=== PATIENT | female | born 1935 | race Caucasian/White ===

== ENCOUNTER 2017-04-20 17:52 | Inpatient (IN) | payer MEDICARE ==
[~2017-04-20] VITALS: Ht 157.5 cm; Wt 80.4 kg
[~2017-04-20 17:52] MED LIST: CALC500T42 PO; CHOL50006 PO; CIPR500T4 PO; CLAR10TA7 PO; COZA50TA PO; LEVO.05 PO; MULTCAP3 PO; PRAV40 PO; TOPR50TA PO; WARF1TAB PO; WARF3TAB PO
[2017-04-20 17:55] VITALS: BP 218/93; PULSE 59; RESP 16; TEMP 98.4; O2SAT 98
--- NOTE | 2017-04-20 18:51 | RADRPT ---
EXAM DATE/TIME: 04/20/2017 18:24 [place] COMPARISON: No previous studies available for comparison. INDICATIONS : Altered mental status. RADIATION DOSE: 56.35 CTDIvol (mGy) MEDICAL HISTORY : Cardiovascular disease. Cerebrovascular disease. Hypertension.cervical cancer SURGICAL HISTORY : Appendectomy. ENCOUNTER: Initial ACUITY: 1 day PAIN SCALE: 4/10 LOCATION: cranial TECHNIQUE: Multiple contiguous axial images were obtained of the head. Using automated exposure control and adj ustment of the mA and/or kV according to patient size, radiation dose was kept as low as reasonably a chievable to obtain optimal diagnostic quality images. DICOM format image data is available electro nically for review and comparison. FINDINGS: There is marked central and cortical atrophy with dilatation of ventricular and sulcal spaces. There is no parenchymal hemorrhage, acute infarction or mass lesion identified. There are old or infarct within the left ellen and the right centrum semiovale region. There are no extra-axial fluid collectio ns appreciated. The posterior fossa is unremarkable with midline fourth ventricle. The portion of t he orbits and paranasal sinuses visualized are unremarkable. CONCLUSION: Stable examination. Old lacunar infarcts. No evidence of hemorrhage or edema. Thaddeus Degroot MD on April 20, 2017 at 18:47 Board Certified Radiologist. This report was verified electronically.
--- NOTE | 2017-04-20 20:06 | PD ---
Physical Exam Narrative General: The patient is a well-developed well-nourished female in no acute distress. Head and Neck exam: Head is normocephalic atraumatic. Eyes: EOMI, pupils are equal round and reactive to light. Nose: Midline septum with pink mucous membranes Mouth: Dentition unremarkable. Moist mucus membranes. Posterior oropharynx is not erythematous. No tonsillar hypertrophy. Uvula midline. Airway patent. Neck: No palpable lymphadenopathy. No nuchal rigidity. No thyromegaly. Cardiovascular: Regular rate and rhythm without murmurs, gallops, or rubs. No pulse deficit to the extremities on simultaneous auscultation and palpation of her radial artery. Lungs: Clear to auscultation bilaterally. No wheezes, rhonchi, or rales. Abdomen: Soft, with reported midepigastric abdominal tenderness on deep palpation. No other tenderness on palpation of the other quadrants of the abdomen. No pulsatile mass palpated. Normal bowel sounds are audible. No tenderness on palpation of McBurney's point. No guarding, rebound, or rigidity. Extremities: No clubbing, cyanosis, or edema. 2+ pulses in all 4 extremities. No calf tenderness on palpation. Back: No costovertebral angle tenderness to palpation. Neurologic Exam: Cranial nerves 2-12 were intact on exam. Strength is 5/5 in all 4 extremities. No sensory deficits noted. Skin Exam: No rash noted. Intact skin that is warm and dry. Data Data Last Documented VS Vital Signs Date Time Temp Pulse Resp B/P (MAP) Pulse Ox O2 Delivery O2 Flow Rate FiO2 04/20/17 22:18 64 18 234/97 (142) 97 Room Air 04/20/17 17:55 98.4 Orders Orders Electrocardiogram (04/20/17 18:02) Complete Blood Count With Diff (04/20/17 18:02) Comprehensive Metabolic Panel (04/20/17 18:02) Creatine Kinase (Cpk) (04/20/17 18:02) Prothrombin Time / Inr (Pt) (04/20/17 18:02) Act Partial Throm Time (Ptt) (04/20/17 18:02) Ct Brain W/O Iv Contrast(Rout) (04/20/17 18:02) Urinalysis - C+S If Indicated (04/20/17 18:02) Troponin I (04/20/17 20:05) Influenzae A/B Antigen (04/20/17 20:16) Chest, Single Ap (04/20/17 20:30) Losartan (Cozaar) (04/20/17 21:30) Metoprolol Succinate Er (Toprol Xl) (04/20/17 21:30) Labetalol Inj (Trandate Inj) (04/20/17 22:47) Admit To Inpatient (04/20/17 ) Inpatient Certification (04/20/17 ) Vital Signs (Adult) ANDERS.Q4H (04/20/17 22:53) Consult Pt Eval & Treat (04/20/17 22:53) Diet Heart Healthy (04/21/17 Breakfast) Activity Oob With Assistance (04/20/17 22:53) Apixaban (Eliquis) (04/21/17 09:00) Levothyroxine (Synthroid) (04/21/17 06:00) Losartan (Cozaar) (04/21/17 09:00) Metoprolol Tartrate (Lopressor) (04/21/17 09:00) Pravastatin (Pravachol) (04/21/17 09:00) Galantamine (Razadyne) (04/21/17 09:00) Labs Laboratory Tests Test 04/20/17 19:51 04/20/17 20:06 White Blood Count 6.2 TH/MM3 Red Blood Count 3.73 MIL/MM3 Hemoglobin 12.4 GM/DL Hematocrit 36.3 % Mean Corpuscular Volume 97.3 FL Mean Corpuscular Hemoglobin 33.2 PG Mean Corpuscular Hemoglobin Concent 34.1 % Red Cell Distribution Width 13.2 % Platelet Count 188 TH/MM3 Mean Platelet Volume 8.2 FL Neutrophils (%) (Auto) 51.0 % Lymphocytes (%) (Auto) 33.1 % Monocytes (%) (Auto) 9.4 % Eosinophils (%) (Auto) 5.7 % Basophils (%) (Auto) 0.8 % Neutrophils # (Auto) 3.2 TH/MM3 Lymphocytes # (Auto) 2.1 TH/MM3 Monocytes # (Auto) 0.6 TH/MM3 Eosinophils # (Auto) 0.4 TH/MM3 Basophils # (Auto) 0.0 TH/MM3 CBC Comment DIFF FINAL Differential Comment Prothrombin Time 10.8 SEC Prothromb Time International Ratio 1.1 RATIO Activated Partial Thromboplast Time 26.5 SEC Blood Urea Nitrogen 19 MG/DL Creatinine 0.90 MG/DL Random Glucose 87 MG/DL Total Protein 7.4 GM/DL Albumin 3.6 GM/DL Calcium Level 9.1 MG/DL Alkaline Phosphatase 79 U/L Aspartate Amino Transf (AST/SGOT) 39 U/L Alanine Aminotransferase (ALT/SGPT) 30 U/L Total Bilirubin 0.4 MG/DL Sodium Level 139 MEQ/L Potassium Level 4.3 MEQ/L Chloride Level 105 MEQ/L Carbon Dioxide Level 26.3 MEQ/L Anion Gap 8 MEQ/L Estimat Glomerular Filtration Rate 60 ML/MIN Total Creatine Kinase 95 U/L Troponin I LESS THAN 0.02 NG/ML Urine Color YELLOW Urine Turbidity CLEAR Urine pH 5.5 Urine Specific [place] 1.017 Urine Protein NEG mg/dL Urine Glucose (UA) NEG mg/dL Urine Ketones NEG mg/dL Urine Occult Blood NEG Urine Nitrite NEG Urine Bilirubin NEG Urine Urobilinogen LESS THAN 2.0 MG/DL Urine Leukocyte Esterase TRACE Urine RBC 2 /hpf Urine WBC 3 /hpf Urine Squamous Epithelial Cells <1 /hpf Urine Mucus FEW /lpf Microscopic Urinalysis Comment CULT NOT INDICATED MDM Medical Record Reviewed: Yes Supervised Visit with EDSON: Yes Interpretation(s) Last Impressions Chest X-Ray 04/20/172029 Signed Impressions: Service Date/Time: Thursday, April 20, 2017 20:38 - CONCLUSION: Normal examination. Thaddeus Degroot MD Head CT 04/20/17 180 Signed Impressions: Service Date/Time: Thursday, April 20, 2017 18:24 - CONCLUSION: Stable examination. Old lacunar infarcts. No evidence of hemorrhage or edema. Thaddeus Degroot MD Differential Diagnosis Altered mentation related to hypertensive emergency, versus intracranial hemorrhage, versus intracranial mass, versus progression of dementia, versus infectious process Narrative Course I, Dr. Linares, have reviewed the advance practice practitioner's documentation and am in agreement, met with the patient face to face, made the diagnosis, and the medical decision making was done by me. The patient was initially evaluated by Gilma. Please see their complete history and physical. *My assessment and Findings: The patient presents with a history of reportedly not sleeping well last night and throughout the day today experiencing altered mentation that waxes and wanes in severity. The patient seemed to be unsteady on her feet with walking. The patient's blood pressure was also higher than usual up to 210 systolic. The patient's family reports that she has been sleeping intermittently throughout the day. The patient's son reports that he is her primary caregiver and she is recently had some sinus congestion and a dry cough. He denies noticing her having any increased urinary frequency or odor to her urine. She has not been experiencing any diarrhea. She has not had any known fevers. She was complaining of some chest pain earlier today. She denies chest pain currently. She reports that the pain is in the center of her chest and is a spreading sensation that moves out work. She also reports having a heavy sensation in her head. She denies having any neck pain, numbness or tingling to her extremities or weakness to her extremities. She has not had any facial droop. The patient does have a history of atrial fibrillation and a prior history of CVA in 2011. She is chronically anticoagulated on Eliquis. During the course of the patients emergency department visit, the patients history, examination, and differential diagnosis were reviewed with the patient. The patient was placed on a cardiac rn with oximetry and frequent blood pressure monitoring. The patient had IV access obtained and blood work sent for analysis. ECG done on arrival shows a sinus bradycardia heart rate of 57, moderate voltage criteria for LVH, no acute ST segment elevation or depression. QRS duration is 105 ms, QTC 432 ms. The patient was initially provided her usual dose of nighttime blood pressure medicine, losartan and metoprolol by mouth. Unfortunately, the patient continued to be hypertensive and due to the concern of hypertensive encephalopathy with waxing and waning mentation, the patient was started on a Cardene drip. The patients laboratory studies were reviewed and remarkable for a white count of 6.2, hemoglobin 12.4, platelets 188 with 9.4 monocytes, CMP is remarkable for a BUN of 19, GFR 60, AST 39, cardiac enzymes within normal limits , PT PTT within normal limits. Urinalysis unremarkable Radiology studies were reviewed and remarkable for a CT scan of the brain that shows no acute abnormality. CT scan of the brain showed no acute abnormality. The patients results were discussed with the patient, including the plan of care. I explained that further testing and/ or monitoring is indicated based on the patients history, examination, and/ or laboratory findings. Therefore, I recommended admission for additional evaluation. The patient expressed understanding and was agreeable with this plan. The patient was admitted to the hospital in guarded condition and [facility] Diagnosis Primary Impression: Hypertensive urgency Additional Impression: Altered mental status Qualified Codes: R41.0 - Disorientation, unspecified Admitting Information Admitting Physician Requests: Admit Radha Linares MD Apr 20, 2017 20:06
[2017-04-20] MEDS ORDERED: LOSA50TA PO (20:15)
[2017-04-20] MEDS ORDERED: APIX5TAB PO (20:15)
[2017-04-20] MEDS ORDERED: METO50TA PO (20:15)
[2017-04-20] MEDS ORDERED: MULT1TAB46 (20:15)
[2017-04-20] MEDS ORDERED: GALA8CAP PO (20:15)
[2017-04-20] MEDS ORDERED: PRAV40TA2 PO (20:15)
[2017-04-20] MEDS ORDERED: LEVO50TA4 PO (20:15)
--- NOTE | 2017-04-20 20:15 | PD ---
HPI Chief Complaint: Altered Mental Status Time Seen by Provider: 19:57 Travel History International Travel<30 days: No Contact w/Intl Traveler<30days: No Traveled to known affect area: No History of Present Illness HPI 81-year-old female presents to emergency department with her son with complaints of increased confusion. Son states that he is the live-in caregiver and knows this patient well. Patient says that she does have dementia but is usually very good with dates and people but has been unable to tell him these specific things without great difficulty. He says that she had a CVA in 2011 which resulted in her dementia. She also has a history of atrial fibrillation which is intermittent and states compliance with Coumadin use. Says she had an episode of chest tightness approximate 1 hour while in the car today. Says this episode is similar to previous episodes when she developed atrial fibrillation. Denies chest pain or shortness of breath at this time. Denies recent falls or head trauma. Denies dysuria or other urinary symptoms. Denies abdominal pain, shortness of breath. He is very concerned that she receive her 8:00 medications. PFSH Past Medical History Hx Anticoagulant Therapy: Yes Anemia: Yes Arthritis: Yes Asthma: Yes Blood Disorders: Yes (BLOOD TRANSFUSION X 2) Anxiety: Yes Depression: No Heart Rhythm Problems: No Cancer: Yes (CERVICAL) Cardiac Catheterization: No Cardiovascular Problems: Yes High Cholesterol: Yes Chemotherapy: No Congestive Heart Failure: No Cerebrovascular Accident: Yes Diabetes: No Diminished Hearing: No Endocrine: No Gastrointestinal Disorders: Yes GERD: Yes Genitourinary: No Hiatal Hernia: Yes Hypertension: Yes Immune Disorder: No Implanted Vascular Access Dvce: Yes Musculoskeletal: Yes Neurologic: Yes Psychiatric: Yes Reproductive: No Respiratory: Yes Immunizations Current: No Radiation Therapy: No Thyroid Disease: Yes (HYPOTHYROID) Ulcer: Yes (GASTRIC) Tetanus Vaccination: < 5 Years Menopausal: Yes Dilation and Curettage (D&C): Yes Past Surgical History Abdominal Surgery: Yes (EXPL. LAP) AICD: No Appendectomy: Yes Arteriovenous Shunt: No Coronary Artery Bypass Graft: No Eye Surgery: Yes Genitourinary Surgery: Yes Gynecologic Surgery: Yes (D&C) Hysterectomy: No Insulin Pump: No Joint Replacement: Yes (NANCY HIP) Oral Surgery: Yes (T & A) Pacemaker: No Tonsillectomy: Yes Other Surgery: Yes Family History Family Myocardial Infarction: No Social History Alcohol Use: No Tobacco Use: No Substance Use: No Allergies-Medications (Allergen,Severity, Reaction): Coded Allergies: baclofen (Unverified Allergy, Severe, DYSPNEA, CHOKING, 11/25/16) carisoprodol (Unverified Allergy, Severe, DYSPNEA, CHOKING, 11/25/16) celecoxib (Unverified Allergy, Severe, Dyspepsia, 11/25/16) chlorzoxazone (Unverified Allergy, Severe, DYSPNEA, CHOKING, 11/25/16) clarithromycin (Unverified Allergy, Severe, SOB, 11/25/16) codeine (Unverified Allergy, Severe, ANAPHYLAXIS, 11/25/16) cyclobenzaprine (Unverified Allergy, Severe, DYSPNEA, CHOKING, 11/25/16) gemfibrozil (Unverified Allergy, Severe, CAUSES PALPITATIONS, 11/25/16) metaxalone (Unverified Allergy, Severe, DYSPNEA, CHOKING, 11/25/16) methocarbamol (Unverified Allergy, Severe, DYSPNEA, CHOKING, 11/25/16) tizanidine (Unverified Allergy, Severe, DYSPNEA, CHOKING, 11/25/16) amlodipine (Unverified Adverse Reaction, Severe, LIPITOR ZOCOR MEVACOR- MYALGIAS AND DIZZINESS, 11/25/16) atorvastatin (Unverified Adverse Reaction, Severe, LIPITOR ZOCOR MEVACOR- MYALGIAS AND DIZZINESS, 11/25/16) diclofenac (Unverified Adverse Reaction, Severe, CEKEBREX VIOXX - DYSPEPSIA, 11/25/16) etodolac (Unverified Adverse Reaction, Severe, CEKEBREX VIOXX - DYSPEPSIA , 11/25/16) flurbiprofen (Unverified Adverse Reaction, Severe, CEKEBREX VIOXX - DYSPEPSIA, 11/25/16) furosemide (Unverified Adverse Reaction, Severe, GENERIC LASIX - MUSCLE CRAMPS, 11/25/16) gabapentin (Unverified Adverse Reaction, Severe, MUSCLE CRAMPS, 11/25/16) ibuprofen (Unverified Adverse Reaction, Severe, CEKEBREX VIOXX - DYSPEPSIA , 11/25/16) indomethacin (Unverified Adverse Reaction, Severe, CEKEBREX VIOXX - DYSPEPSIA, 11/25/16) ketoprofen (Unverified Adverse Reaction, Severe, CEKEBREX VIOXX - DYSPEPSIA, 11/25/16) ketorolac (Unverified Adverse Reaction, Severe, CEKEBREX VIOXX - DYSPEPSIA , 11/25/16) lansoprazole (Unverified Adverse Reaction, Severe, Diarrhea, 11/25/16) lovastatin (Unverified Adverse Reaction, Severe, MYALGIAS AND DIZZINESS, ) naproxen (Unverified Adverse Reaction, Severe, CEKEBREX VIOXX - DYSPEPSIA , 11/25/16) omeprazole (Unverified Adverse Reaction, Severe, DIARRHEA, 11/25/16) oxaprozin (Unverified Adverse Reaction, Severe, CEKEBREX VIOXX - DYSPEPSIA , 11/25/16) pravastatin (Unverified Adverse Reaction, Severe, LIPITOR ZOCOR MEVACOR- MYALGIAS AND DIZZINESS, 11/25/16) rofecoxib (Unverified Adverse Reaction, Severe, MUSCLE CRAMPING, 11/25/16) simvastatin (Unverified Adverse Reaction, Severe, MYLAGIAS AND DIZZINESS, 11/25/16) sodium phosphate (Unverified Adverse Reaction, Severe, N/V, 11/25/16) Uncoded Allergies: ALLERGY SHOTS (Allergy, Severe, ASTHMA, 05/22/13) CHOLESTEROL MEDICATIONS (Adverse Reaction, Severe, MUSCLE CRAMPS, 05/22/13) OSTEOPOROSIS MEDICATIONS (Adverse Reaction, Severe, JAW EROSION, 05/22/13) Reported Meds & Prescriptions Reported Meds & Active Scripts Active Reported Losartan (Losartan Potassium) 50 Mg Tab 50 Mg PO BID Pravastatin 40 Mg Tab 40 Mg PO DAILY Eliquis (Apixaban) 5 Mg Tab 5 Mg PO BID Galantamine ER (Galantamine Hydrobromide) 8 Mg Caper 8 Mg PO DAILY Levothyroxine (Levothyroxine Sodium) 50 Mcg Tab 50 Mcg PO DAILY Metoprolol Tartrate 50 Mg Tab 50 Mg PO BID Multi Vitamin Daily (Multiple Vitamin) 1 Tab Tab Review of Systems Except as stated in HPI: all other systems reviewed are Neg Physical Exam Narrative GENERAL: Well-developed well-nourished in no apparent distress, interacting well with me SKIN: Focused skin assessment warm/dry. HEAD: Atraumatic. Normocephalic. EYES: Pupils equal and round. No scleral icterus. No injection or drainage. EOMI ENT: No nasal bleeding or discharge. Mucous membranes pink and moist. NECK: Trachea midline. No JVD. CARDIOVASCULAR: Regular rate and rhythm. No murmur appreciated. RESPIRATORY: No accessory muscle use. Clear to auscultation. Breath sounds equal bilaterally. GASTROINTESTINAL: Abdomen soft, non-tender, nondistended. MUSCULOSKELETAL: No obvious deformities. No clubbing. No cyanosis. No edema. Left CVA tenderness NEUROLOGICAL: Awake and alert. No obvious cranial nerve deficits. Motor grossly within normal limits. Normal speech. PSYCHIATRIC: Appropriate mood and affect; insight and judgment normal. Data Data Last Documented VS Vital Signs Date Time Temp Pulse Resp B/P (MAP) Pulse Ox O2 Delivery O2 Flow Rate FiO2 04/20/17 22:18 64 18 234/97 (142) 97 Room Air 04/20/17 17:55 98.4 Orders Orders Electrocardiogram (04/20/17 18:02) Complete Blood Count With Diff (04/20/17 18:02) Comprehensive Metabolic Panel (04/20/17 18:02) Creatine Kinase (Cpk) (04/20/17 18:02) Prothrombin Time / Inr (Pt) (04/20/17 18:02) Act Partial Throm Time (Ptt) (04/20/17 18:02) Ct Brain W/O Iv Contrast(Rout) (04/20/17 18:02) Urinalysis - C+S If Indicated (04/20/17 18:02) Troponin I (04/20/17 20:05) Influenzae A/B Antigen (04/20/17 20:16) Chest, Single Ap (04/20/17 20:30) Losartan (Cozaar) (04/20/17 21:30) Metoprolol Succinate Er (Toprol Xl) (04/20/17 21:30) Labetalol Inj (Trandate Inj) (04/20/17 22:47) Admit To Inpatient (04/20/17 ) Inpatient Certification (04/20/17 ) Vital Signs (Adult) ANDERS.Q4H (04/20/17 22:53) Consult Pt Eval & Treat (04/20/17 22:53) Diet Heart Healthy (04/21/17 Breakfast) Activity Oob With Assistance (04/20/17 22:53) Apixaban (Eliquis) (04/21/17 09:00) Levothyroxine (Synthroid) (04/21/17 06:00) Losartan (Cozaar) (04/21/17 09:00) Metoprolol Tartrate (Lopressor) (04/21/17 09:00) Pravastatin (Pravachol) (04/21/17 09:00) Galantamine (Razadyne) (04/21/17 09:00) Labs Laboratory Tests Test 04/20/17 19:51 04/20/17 20:06 White Blood Count 6.2 TH/MM3 Red Blood Count 3.73 MIL/MM3 Hemoglobin 12.4 GM/DL Hematocrit 36.3 % Mean Corpuscular Volume 97.3 FL Mean Corpuscular Hemoglobin 33.2 PG Mean Corpuscular Hemoglobin Concent 34.1 % Red Cell Distribution Width 13.2 % Platelet Count 188 TH/MM3 Mean Platelet Volume 8.2 FL Neutrophils (%) (Auto) 51.0 % Lymphocytes (%) (Auto) 33.1 % Monocytes (%) (Auto) 9.4 % Eosinophils (%) (Auto) 5.7 % Basophils (%) (Auto) 0.8 % Neutrophils # (Auto) 3.2 TH/MM3 Lymphocytes # (Auto) 2.1 TH/MM3 Monocytes # (Auto) 0.6 TH/MM3 Eosinophils # (Auto) 0.4 TH/MM3 Basophils # (Auto) 0.0 TH/MM3 CBC Comment DIFF FINAL Differential Comment Prothrombin Time 10.8 SEC Prothromb Time International Ratio 1.1 RATIO Activated Partial Thromboplast Time 26.5 SEC Blood Urea Nitrogen 19 MG/DL Creatinine 0.90 MG/DL Random Glucose 87 MG/DL Total Protein 7.4 GM/DL Albumin 3.6 GM/DL Calcium Level 9.1 MG/DL Alkaline Phosphatase 79 U/L Aspartate Amino Transf (AST/SGOT) 39 U/L Alanine Aminotransferase (ALT/SGPT) 30 U/L Total Bilirubin 0.4 MG/DL Sodium Level 139 MEQ/L Potassium Level 4.3 MEQ/L Chloride Level 105 MEQ/L Carbon Dioxide Level 26.3 MEQ/L Anion Gap 8 MEQ/L Estimat Glomerular Filtration Rate 60 ML/MIN Total Creatine Kinase 95 U/L Troponin I LESS THAN 0.02 NG/ML Urine Color YELLOW Urine Turbidity CLEAR Urine pH 5.5 Urine Specific [place] 1.017 Urine Protein NEG mg/dL Urine Glucose (UA) NEG mg/dL Urine Ketones NEG mg/dL Urine Occult Blood NEG Urine Nitrite NEG Urine Bilirubin NEG Urine Urobilinogen LESS THAN 2.0 MG/DL Urine Leukocyte Esterase TRACE Urine RBC 2 /hpf Urine WBC 3 /hpf Urine Squamous Epithelial Cells <1 /hpf Urine Mucus FEW /lpf Microscopic Urinalysis Comment CULT NOT INDICATED MDM Medical Decision Making Medical Screen Exam Complete: Yes Emergency Medical Condition: Yes Differential Diagnosis Delirium, dementia, urinary tract infection, sepsis, neutrophil fibrillation, CVA, hypertensive urgency, hypertensive emergency Narrative Course 81-year-old female presents to emergency department with her son with complaints of increased confusion. Son states that he is the live-in caregiver and knows this patient well. Patient says that she does have dementia but is usually very good with dates and people but has been unable to tell him these specific things without great difficulty. He says that she had a CVA in 2011 which resulted in her dementia. She also has a history of atrial fibrillation which is intermittent and states compliance with Coumadin use. Says she had an episode of chest tightness approximate 1 hour while in the car today. Says this episode is similar to previous episodes when she developed atrial fibrillation. Denies chest pain or shortness of breath at this time. Denies recent falls or head trauma. Denies dysuria or other urinary symptoms. Denies abdominal pain, shortness of breath. He is very concerned that she receive her 8:00 medications. Vital signs- hypertensive Last Impressions Chest X-Ray 04/20/172029 Signed Impressions: Service Date/Time: Thursday, April 20, 2017 20:38 - CONCLUSION: Normal examination. Thaddeus Degroot MD Head CT 04/20/17 1802 Signed Impressions: Service Date/Time: Thursday, April 20, 2017 18:24 - CONCLUSION: Stable examination. Old lacunar infarcts. No evidence of hemorrhage or edema. Thaddeus Degroot MD Laboratory Tests Test 04/20/17 19:51 04/20/17 20:06 White Blood Count 6.2 TH/MM3 Red Blood Count 3.73 MIL/MM3 Hemoglobin 12.4 GM/DL Hematocrit 36.3 % Mean Corpuscular Volume 97.3 FL Mean Corpuscular Hemoglobin 33.2 PG Mean Corpuscular Hemoglobin Concent 34.1 % Red Cell Distribution Width 13.2 % Platelet Count 188 TH/MM3 Mean Platelet Volume 8.2 FL Neutrophils (%) (Auto) 51.0 % Lymphocytes (%) (Auto) 33.1 % Monocytes (%) (Auto) 9.4 % Eosinophils (%) (Auto) 5.7 % Basophils (%) (Auto) 0.8 % Neutrophils # (Auto) 3.2 TH/MM3 Lymphocytes # (Auto) 2.1 TH/MM3 Monocytes # (Auto) 0.6 TH/MM3 Eosinophils # (Auto) 0.4 TH/MM3 Basophils # (Auto) 0.0 TH/MM3 CBC Comment DIFF FINAL Differential Comment Prothrombin Time 10.8 SEC Prothromb Time International Ratio 1.1 RATIO Activated Partial Thromboplast Time 26.5 SEC Blood Urea Nitrogen 19 MG/DL Creatinine 0.90 MG/DL Random Glucose 87 MG/DL Total Protein 7.4 GM/DL Albumin 3.6 GM/DL Calcium Level 9.1 MG/DL Alkaline Phosphatase 79 U/L Aspartate Amino Transf (AST/SGOT) 39 U/L Alanine Aminotransferase (ALT/SGPT) 30 U/L Total Bilirubin 0.4 MG/DL Sodium Level 139 MEQ/L Potassium Level 4.3 MEQ/L Chloride Level 105 MEQ/L Carbon Dioxide Level 26.3 MEQ/L Anion Gap 8 MEQ/L Estimat Glomerular Filtration Rate 60 ML/MIN Total Creatine Kinase 95 U/L Troponin I LESS THAN 0.02 NG/ML Urine Color YELLOW Urine Turbidity CLEAR Urine pH 5.5 Urine Specific [place] 1.017 Urine Protein NEG mg/dL Urine Glucose (UA) NEG mg/dL Urine Ketones NEG mg/dL Urine Occult Blood NEG Urine Nitrite NEG Urine Bilirubin NEG Urine Urobilinogen LESS THAN 2.0 MG/DL Urine Leukocyte Esterase TRACE Urine RBC 2 /hpf Urine WBC 3 /hpf Urine Squamous Epithelial Cells <1 /hpf Urine Mucus FEW /lpf Microscopic Urinalysis Comment CULT NOT INDICATED Her home BP medications were administered in the ED. BP persistently elevated. Cardene administered in the emergency department. Because of son's concern for altered mental status and elevated BP, will admit for hypertensive urgency. Patient remained stable and pleasant throughout the emergency department visit. Diagnosis Primary Impression: Hypertensive urgency Admitting Information Admitting Physician Requests: Observation Condition: Stable Cait Spear Apr 20, 2017 20:15
[2017-04-20 20:30] LABS: AUTOMATED NEUTROPHIL # 3.2 TH/MM3 (1.8-7.7); BASOPHIL % 0.8 % (0.0-2.0); EOSINOPHIL # 0.4 TH/MM3 (0-0.4); EOSINOPHIL % 5.7 % (0.0-4.0); HEMATOCRIT 36.3 % (35.0-46.0); HEMOGLOBIN 12.4 GM/DL (11.6-15.3); LYMPH % 33.1 % (9.0-44.0); LYMPHOCYTE # 2.1 TH/MM3 (1.0-4.8); MEAN CELL VOLUME 97.3 FL (80.0-100.0); MEAN CORPUSCULAR HEMOGLOBIN 33.2 PG (27.0-34.0); MEAN CORPUSCULAR HGB CONC 34.1 % (32.0-36.0); MEAN PLATELET VOLUME 8.2 FL (7.0-11.0); MONO % 9.4 % (0.0-8.0); MONOCYTE # 0.6 TH/MM3 (0-0.9); PLATELET COUNT 188 TH/MM3 (150-450); RED BLOOD COUNT 3.73 MIL/MM3 (4.00-5.30); RED CELL DISTRIBUTION WIDTH 13.2 % (11.6-17.2); WHITE BLOOD COUNT 6.2 TH/MM3 (4.0-11.0)
[2017-04-20 20:32] LABS: BILIRUBIN, URINE NEG (NEG); BLOOD, URINE NEG (NEG); GLUCOSE,URINE NEG (NEG); KETONE, URINE NEG (NEG); MUCUS URINE FEW /lpf (OCC); NITRITE,URINE NEG (NEG); PH, URINE 5.5 (5.0-8.5); SQUAMOUS EPITHELIAL CELL URINE <1 /hpf (0-5); URINE COLOR YELLOW (YELLW/STRAW); URINE LEUKOCYTE ESTERASE TRACE (NEG)
[2017-04-20 20:40] LABS: INTERNATIONAL NORMALIZED RATIO 1.1 RATIO; PROTHROMBIN TIME - PATIENT 10.8 SEC (9.8-11.6)
[2017-04-20 20:52] LABS: ALT (GPT) 30 U/L (10-53)
[2017-04-20 20:54] LABS: ALBUMIN 3.6 GM/DL (3.4-5.0); AST (GOT) 39 U/L (15-37); BICARBONATE 26.3 MEQ/L (21.0-32.0); BLOOD UREA NITROGEN 19 MG/DL (7-18); CALCIUM 9.1 MG/DL (8.5-10.1); CHLORIDE 105 MEQ/L (98-107); GLOMERULAR FILTRATION RATE 60 ML/MIN (>89); GLUCOSE,RANDOM 87 MG/DL (74-106); SODIUM (NA) 139 MEQ/L (136-145)
[2017-04-20 20:55] LABS: ALKALINE PHOSPHATASE 79 U/L (45-117); TOTAL BILIRUBIN ADULT 0.4 MG/DL (0.2-1.0); TOTAL PROTEIN 7.4 GM/DL (6.4-8.2)
--- NOTE | 2017-04-20 21:01 | RADRPT ---
EXAM DATE/TIME: 04/20/2017 20:38 [facility] COMPARISON: CHEST SINGLE AP, February 12, 2015, 23:35. INDICATIONS : Cough. MEDICAL HISTORY : Hypertension. Asthma. SURGICAL HISTORY : None. ENCOUNTER: Initial ACUITY: 1 week PAIN SCORE: 0/10 LOCATION: Bilateral chest FINDINGS: A single view of the chest demonstrates the lungs to be symmetrically aerated without evidence of mas s, infiltrate or effusion. The cardiomediastinal contours are unremarkable. Osseous structures are intact. CONCLUSION: Normal examination. Thaddeus Degroot MD on April 20, 2017 at 20:59 Board Certified Radiologist. This report was verified electronically.
[2017-04-20] MEDS ORDERED: METOPROLOL SUCCINATE 50 MG EXTENDED RELEASE TAB PO ONE (21:30)
[2017-04-20] MEDS ORDERED: LOSARTAN 50 MG TAB PO ONE (21:30)
[2017-04-20 22:18] VITALS: BP 234/97; PULSE 64; RESP 18; O2SAT 97
[2017-04-20] MEDS ORDERED: LABETALOL HCL 100 MG/20 ML VIAL IV PUSH STA (22:47)
--- NOTE | 2017-04-20 23:07 | HHI.HP ---
HPI Service [facility] Hospitalists Primary Care Physician Louise Abdalla MD Admission Diagnosis hypertensive urgency Chief Complaint: ams Travel History International Travel<30 Days: No Contact w/Intl Traveler <30 Da: No Traveled to Known Affected Are: No History of Present Illness Pt with hx of pafib, lacunar and pontine cva's, vascular dementia, htn presents with elevated bp, left leg intermittent "dragging", and intermittent confusion all today. Son is caregiver and says her bp was hard to control. He noted left foot catching/dragging with ambulation and some intermittent confusion over baseline and slurred speech. BP elevated in ED and ED gave her home bp meds and called for admission. CT head and basic blood work negative for acute process. Possible mild cough today. Review of Systems Other confusion Past Family Social History Past Medical History left pontine cva tia p. afib htn hypothyroidism dementia gerd appe bilateral hip arthroplasties Reported Medications Losartan (Losartan Potassium) 50 Mg Tab 50 Mg PO BID Pravastatin 40 Mg Tab 40 Mg PO DAILY Eliquis (Apixaban) 5 Mg Tab 5 Mg PO BID Galantamine ER (Galantamine Hydrobromide) 8 Mg Caper 8 Mg PO DAILY Levothyroxine (Levothyroxine Sodium) 50 Mcg Tab 50 Mcg PO DAILY Metoprolol Tartrate 50 Mg Tab 50 Mg PO BID Multi Vitamin Daily (Multiple Vitamin) 1 Tab Tab Allergies: Coded Allergies: baclofen (Unverified Allergy, Severe, DYSPNEA, CHOKING, 11/25/16) carisoprodol (Unverified Allergy, Severe, DYSPNEA, CHOKING, 11/25/16) celecoxib (Unverified Allergy, Severe, Dyspepsia, 11/25/16) chlorzoxazone (Unverified Allergy, Severe, DYSPNEA, CHOKING, 11/25/16) clarithromycin (Unverified Allergy, Severe, SOB, 11/25/16) codeine (Unverified Allergy, Severe, ANAPHYLAXIS, 11/25/16) cyclobenzaprine (Unverified Allergy, Severe, DYSPNEA, CHOKING, 11/25/16) gemfibrozil (Unverified Allergy, Severe, CAUSES PALPITATIONS, 11/25/16) metaxalone (Unverified Allergy, Severe, DYSPNEA, CHOKING, 11/25/16) methocarbamol (Unverified Allergy, Severe, DYSPNEA, CHOKING, 11/25/16) tizanidine (Unverified Allergy, Severe, DYSPNEA, CHOKING, 11/25/16) amlodipine (Unverified Adverse Reaction, Severe, LIPITOR ZOCOR MEVACOR- MYALGIAS AND DIZZINESS, 11/25/16) atorvastatin (Unverified Adverse Reaction, Severe, LIPITOR ZOCOR MEVACOR- MYALGIAS AND DIZZINESS, 11/25/16) diclofenac (Unverified Adverse Reaction, Severe, CEKEBREX VIOXX - DYSPEPSIA, 11/25/16) etodolac (Unverified Adverse Reaction, Severe, CEKEBREX VIOXX - DYSPEPSIA , 11/25/16) flurbiprofen (Unverified Adverse Reaction, Severe, CEKEBREX VIOXX - DYSPEPSIA, 11/25/16) furosemide (Unverified Adverse Reaction, Severe, GENERIC LASIX - MUSCLE CRAMPS, 11/25/16) gabapentin (Unverified Adverse Reaction, Severe, MUSCLE CRAMPS, 11/25/16) ibuprofen (Unverified Adverse Reaction, Severe, CEKEBREX VIOXX - DYSPEPSIA , 11/25/16) indomethacin (Unverified Adverse Reaction, Severe, CEKEBREX VIOXX - DYSPEPSIA, 11/25/16) ketoprofen (Unverified Adverse Reaction, Severe, CEKEBREX VIOXX - DYSPEPSIA, 11/25/16) ketorolac (Unverified Adverse Reaction, Severe, CEKEBREX VIOXX - DYSPEPSIA , 11/25/16) lansoprazole (Unverified Adverse Reaction, Severe, Diarrhea, 11/25/16) lovastatin (Unverified Adverse Reaction, Severe, MYALGIAS AND DIZZINESS, ) naproxen (Unverified Adverse Reaction, Severe, CEKEBREX VIOXX - DYSPEPSIA , 11/25/16) omeprazole (Unverified Adverse Reaction, Severe, DIARRHEA, 11/25/16) oxaprozin (Unverified Adverse Reaction, Severe, CEKEBREX VIOXX - DYSPEPSIA , 11/25/16) pravastatin (Unverified Adverse Reaction, Severe, LIPITOR ZOCOR MEVACOR- MYALGIAS AND DIZZINESS, 11/25/16) rofecoxib (Unverified Adverse Reaction, Severe, MUSCLE CRAMPING, 11/25/16) simvastatin (Unverified Adverse Reaction, Severe, MYLAGIAS AND DIZZINESS, 11/25/16) sodium phosphate (Unverified Adverse Reaction, Severe, N/V, 11/25/16) Uncoded Allergies: ALLERGY SHOTS (Allergy, Severe, ASTHMA, 05/22/13) CHOLESTEROL MEDICATIONS (Adverse Reaction, Severe, MUSCLE CRAMPS, 05/22/13) OSTEOPOROSIS MEDICATIONS (Adverse Reaction, Severe, JAW EROSION, 05/22/13) Family History nc Social History no etoh/tob Physical Exam Vital Signs pleasant follows commands heart reg lung cta abd s/nt ext no edema no focal weakness Vital Signs Date Time Temp Pulse Resp B/P (MAP) Pulse Ox O2 Delivery O2 Flow Rate FiO2 04/20/17 22:18 64 18 234/97 (142) 97 Room Air 04/20/17 20:09 56 18 96 Room Air 04/20/17 17:55 98.4 59 16 218/93 (134) 98 Laboratory Laboratory Tests Test 04/20/17 19:51 04/20/17 20:06 White Blood Count 6.2 Red Blood Count 3.73 Hemoglobin 12.4 Hematocrit 36.3 Mean Corpuscular Volume 97.3 Mean Corpuscular Hemoglobin 33.2 Mean Corpuscular Hemoglobin Concent 34.1 Red Cell Distribution Width 13.2 Platelet Count 188 Mean Platelet Volume 8.2 Neutrophils (%) (Auto) 51.0 Lymphocytes (%) (Auto) 33.1 Monocytes (%) (Auto) 9.4 Eosinophils (%) (Auto) 5.7 Basophils (%) (Auto) 0.8 Neutrophils # (Auto) 3.2 Lymphocytes # (Auto) 2.1 Monocytes # (Auto) 0.6 Eosinophils # (Auto) 0.4 Basophils # (Auto) 0.0 CBC Comment DIFF FINAL Differential Comment Prothrombin Time 10.8 Prothromb Time International Ratio 1.1 Activated Partial Thromboplast Time 26.5 Blood Urea Nitrogen 19 Creatinine 0.90 Random Glucose 87 Total Protein 7.4 Albumin 3.6 Calcium Level 9.1 Alkaline Phosphatase 79 Aspartate Amino Transf (AST/SGOT) 39 Alanine Aminotransferase (ALT/SGPT) 30 Total Bilirubin 0.4 Sodium Level 139 Potassium Level 4.3 Chloride Level 105 Carbon Dioxide Level 26.3 Anion Gap 8 Estimat Glomerular Filtration Rate 60 Total Creatine Kinase 95 Troponin I LESS THAN 0.02 Urine Color YELLOW Urine Turbidity CLEAR Urine pH 5.5 Urine Specific [place] 1.017 Urine Protein NEG Urine Glucose (UA) NEG Urine Ketones NEG Urine Occult Blood NEG Urine Nitrite NEG Urine Bilirubin NEG Urine Urobilinogen LESS THAN 2.0 Urine Leukocyte Esterase TRACE Urine RBC 2 Urine WBC 3 Urine Squamous Epithelial Cells <1 Urine Mucus FEW Microscopic Urinalysis Comment CULT NOT INDICATED Date/Time Source Procedure Growth Status 04/20/17 19:52 Nasal Aspirate Influenza Types A,B Antigen (TONIO) - Final NEGATIVE FOR FLU A AND B ANTIGEN.... Complete Result Diagram: 04/20/17195004/20/171950 Caprini VTE Risk Assessment Caprini VTE Risk Assessment: Mod/High Risk (score >= 2) Caprini Risk Assessment Model Point Value = 1 Point Value = 2 Point Value = 3 Point Value = 5 Age 41-60 Minor surgery BMI > 25 kg/m2 Swollen legs Varicose veins or History of unexplained or recurrent spontaneous Oral contraceptives or hormone replacement Sepsis (< 1 month) Serious lung disease, including pneumonia (< 1 month) Abnormal pulmonary function Acute myocardial infarction Congestive heart failure (< 1 month) History of inflammatory bowel disease Medical patient at bed rest Age 61-74 Arthroscopic surgery Major open surgery (> 45 min) Laparoscopic surgery (> 45 min) Malignancy Confined to bed (> 72 hours) Immobilizing plaster cast Central venous access Age >= 75 History of VTE Family history of VTE Factor V Leiden Prothrombin [id number] Lupus anticoagulant Anticardiolipin antibodies Elevated serum homocysteine Heparin-induced thrombocytopenia Other congenital or acquired thrombophilia Stroke (< 1 month) Elective arthroplasty Hip, pelvis, or leg fracture Acute spinal cord injury (< 1 month) Prophylaxis Regimen Total Risk Factor Score Risk Level Prophylaxis Regimen 0-1 Low Early ambulation 2 Moderate Order ONE of the following: *Sequential Compression Device (SCD) *Heparin 5000 units SQ BID 3-4 Higher Order ONE of the following medications: *Heparin 5000 units SQ TID *Enoxaparin/Lovenox 40 mg SQ daily (WT < 150 kg, CrCl > 30 mL/min) *Enoxaparin/Lovenox 30 mg SQ daily (WT < 150 kg, CrCl > 10-29 mL/min) *Enoxaparin/Lovenox 30 mg SQ BID (WT < 150 kg, CrCl > 30 mL/min) AND/OR *Sequential Compression Device (SCD) 5 or more Highest Order ONE of the following medications: *Heparin 5000 units SQ TID (Preferred with Epidurals) *Enoxaparin/Lovenox 40 mg SQ daily (WT < 150 kg, CrCl > 30 mL/min) *Enoxaparin/Lovenox 30 mg SQ daily (WT < 150 kg, CrCl > 10-29 mL/min) *Enoxaparin/Lovenox 30 mg SQ BID (WT < 150 kg, CrCl > 30 mL/min) AND *Sequential Compression Device (SCD) Assessment and Plan Problem List: (1) Hypertensive urgency ICD Codes: I16.0 - Hypertensive urgency Status: Acute Plan: 1. htn urgency. intermittent confusion/slur speech/leg weakness or dragging today per son r/o new tia/cva 2. hx pontine cva 3. old lacunar cva's 4. vascular dementia 5. hx uncontrolled htn 6. hypothyroidism plan long talk with pt/son mri/a brain eval to exclude new cva...seems less likely as she is currently anticoagulated control bp if no evidence for acute cva cont home anticoagulation cont statin PT eval pt/son wish for dnr at this time. (2) History of pontine stroke Status: Chronic (3) Atrial fibrillation ICD Codes: I48.91 - Atrial fibrillation Status: Chronic (4) Hypothyroidism ICD Codes: E03.9 - Hypothyroidism Status: Chronic Physician Certification 2 Midnight Certification Type: Admission for Inpatient Services Order for Inpatient Services 2The services are ordered in accordance with Medicare regulations or non- Medicare payer requirements, as applicable. In the case of services not specified as inpatient-only, they are appropriately provided as inpatient services in accordance with the 2-midnight benchmark. Estimated LOS (days): 2 2 days is the estimated time the patient will need to remain in the hospital, assuming treatment plan goals are met and no additional complications. Post-Hospital Plan: Home Jose Cruz Cronin MD Apr 20, 2017 23:07
[2017-04-20] MEDS ORDERED: ENALAPRILAT 1.25 MG/ML VIAL IV PUSH PRN (23:15)
[2017-04-20] MEDS ORDERED: niCARdipine INJ 25 MG in SODIUM CHLOR 0.9% 250 ML INJ 240 ML IV ONE (23:15)
[2017-04-20] MEDS ORDERED: cloNIDine HCL 0.1 MG TAB PO PRN (23:15)
[2017-04-20 23:52] VITALS: BP 185/74; PULSE 54; RESP 18; O2SAT 99
[2017-04-21] VITALS (8 sets, daily range): BP systolic 129–167; BP diastolic 54–81; PULSE 53–64; RESP 17–18; TEMP 98.1–98.6; O2SAT 95–100
--- NOTE | 2017-04-21 01:56 | RADRPT ---
EXAM DATE/TIME: 04/21/2017 01:02 [facility] COMPARISON: No previous studies available for comparison. INDICATIONS : Confusion. MEDICAL HISTORY : Hypertension. SURGICAL HISTORY : Tonsillectomy. Bilateral hip replacements. ENCOUNTER: Initial ACUITY: 1 day PAIN SCORE: 0/10 LOCATION: cranial Please note a normal MRA of the brain does not entirely exclude the possibility of a small aneurysm, nor the possibility of distal intracranial vessel disease. TECHNIQUE: 3D time of flight MRA was performed. Source images, multiplanar STS MIP, and 3D volum e MIP reconstructions were reviewed. FINDINGS: Examination of the anterior circulation demonstrates no evidence of aneurysm or vascular information. There is atherosclerotic disease with 50-60% narrowing on the right and approximately 70% on the lef t.. The distal cerebral vessels fill normally. Examination of posterior fossa also demonstrates no evidence of aneurysm or vascular malformation. Th e right vertebral artery is dominant. 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 Bolus infused CT angiography of the brain is recommended for further evaluation. Benji Copeland MD on April 21, 2017 at 1:46 Board Certified Radiologist. This report was verified electronically.
--- NOTE | 2017-04-21 02:00 | RADRPT ---
EXAM DATE/TIME: 04/21/2017 01:02 [facility] COMPARISON: No previous studies available for comparison. INDICATIONS : Confusion. MEDICAL HISTORY : Hypertension. SURGICAL HISTORY : Tonsillectomy. Bilateral hip replacement. ENCOUNTER: Initial ACUITY: 1 day PAIN SCORE: 0/10 LOCATION: cranial TECHNIQUE: Multiplanar, multisequence MRI of the brain was performed without contrast. FINDINGS: MRI of the brain is performed in sagittal, axial and coronal planes. The craniocervical junction and midline structures are unremarkable. Diffusion weighted images demonstrate no abnormality. There is n o evidence of acute cortical infarction, acute hemorrhage, mass effect or midline shift is seen. Ther e is periventricular hyperintensity on the T2 weighted images consistent with small vessel vascular d isease significantly more than expected in a patient of this age. There is also small vessel vascular disease within the brainstem. Posterior fossa structures are unremarkable. CONCLUSION: 1. No evidence of acute intracranial pathology. Chronic ischemic changes as above. Benji Copeland MD on April 21, 2017 at 1:53 Board Certified Radiologist. This report was verified electronically.
[2017-04-21] MEDS: LEVOTHYROXINE SODIUM 50 MCG TAB PO SCH (06:23)
[2017-04-21] MEDS: PRAVASTATIN SOD 40 MG TAB PO SCH (09:00)
--- NOTE | 2017-04-21 09:36 | HHI.PR ---
Subjective Remarks Patient evaluated with son at bedside Patient awake and alert able to provide name, and location, but thinks it's 2002 Son reports patient appears less confused than yesterday but not quite back to baseline Objective Vitals Vital Signs Date Time Temp Pulse Resp B/P (MAP) Pulse Ox O2 Delivery O2 Flow Rate FiO2 04/21/17 08:01 98.3 58 17 140/65 (90) 96 Room Air 04/21/17 05:40 57 18 160/81 (107) 100 04/21/17 01:17 98.5 54 18 167/54 (91) 100 Room Air 04/20/17 23:52 54 18 185/74 (111) 99 Room Air 04/20/17 22:18 64 18 234/97 (142) 97 Room Air 04/20/17 20:09 56 18 96 Room Air 04/20/17 17:55 98.4 59 16 218/93 (134) 98 Result Diagram: 04/20/17195004/20/171950 Other Results Laboratory Tests Test 04/20/17 19:51 04/20/17 20:06 White Blood Count 6.2 TH/MM3 Red Blood Count 3.73 MIL/MM3 Hemoglobin 12.4 GM/DL Hematocrit 36.3 % Mean Corpuscular Volume 97.3 FL Mean Corpuscular Hemoglobin 33.2 PG Mean Corpuscular Hemoglobin Concent 34.1 % Red Cell Distribution Width 13.2 % Platelet Count 188 TH/MM3 Mean Platelet Volume 8.2 FL Neutrophils (%) (Auto) 51.0 % Lymphocytes (%) (Auto) 33.1 % Monocytes (%) (Auto) 9.4 % Eosinophils (%) (Auto) 5.7 % Basophils (%) (Auto) 0.8 % Neutrophils # (Auto) 3.2 TH/MM3 Lymphocytes # (Auto) 2.1 TH/MM3 Monocytes # (Auto) 0.6 TH/MM3 Eosinophils # (Auto) 0.4 TH/MM3 Basophils # (Auto) 0.0 TH/MM3 CBC Comment DIFF FINAL Differential Comment Prothrombin Time 10.8 SEC Prothromb Time International Ratio 1.1 RATIO Activated Partial Thromboplast Time 26.5 SEC Blood Urea Nitrogen 19 MG/DL Creatinine 0.90 MG/DL Random Glucose 87 MG/DL Total Protein 7.4 GM/DL Albumin 3.6 GM/DL Calcium Level 9.1 MG/DL Alkaline Phosphatase 79 U/L Aspartate Amino Transf (AST/SGOT) 39 U/L Alanine Aminotransferase (ALT/SGPT) 30 U/L Total Bilirubin 0.4 MG/DL Sodium Level 139 MEQ/L Potassium Level 4.3 MEQ/L Chloride Level 105 MEQ/L Carbon Dioxide Level 26.3 MEQ/L Anion Gap 8 MEQ/L Estimat Glomerular Filtration Rate 60 ML/MIN Total Creatine Kinase 95 U/L Troponin I LESS THAN 0.02 NG/ML Urine Color YELLOW Urine Turbidity CLEAR Urine pH 5.5 Urine Specific [place] 1.017 Urine Protein NEG mg/dL Urine Glucose (UA) NEG mg/dL Urine Ketones NEG mg/dL Urine Occult Blood NEG Urine Nitrite NEG Urine Bilirubin NEG Urine Urobilinogen LESS THAN 2.0 MG/DL Urine Leukocyte Esterase TRACE Urine RBC 2 /hpf Urine WBC 3 /hpf Urine Squamous Epithelial Cells <1 /hpf Urine Mucus FEW /lpf Microscopic Urinalysis Comment CULT NOT INDICATED Imaging Last Impressions Head Magnetic Resonance Angiography 04/21/17 0000 Signed Impressions: Service Date/Time: Friday, April 21, 2017 01:02 - CONCLUSION: 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 Bolus infused CT angiography of the brain is recommended for further evaluation. Benji Copeland MD Brain MRI 04/21/17 0000 Signed Impressions: Service Date/Time: Friday, April 21, 2017 01:02 - CONCLUSION: 1. No evidence of acute intracranial pathology. Chronic ischemic changes as above. Benji Copeland MD Chest X-Ray 04/20/172029 Signed Impressions: Service Date/Time: Thursday, April 20, 2017 20:38 - CONCLUSION: Normal examination. Thaddeus Degroot MD Head CT 04/20/17 1802 Signed Impressions: Service Date/Time: Thursday, April 20, 2017 18:24 - CONCLUSION: Stable examination. Old lacunar infarcts. No evidence of hemorrhage or edema. Thaddeus Degroot MD Objective Remarks GENERAL: This is a well-nourished, well-developed patient, in no apparent distress. CARDIOVASCULAR: Regular rate and rhythm RESPIRATORY: Clear to auscultation. Breath sounds equal bilaterally. GASTROINTESTINAL: Abdomen soft, non-tender, nondistended. Normal active bowel sounds MUSCULOSKELETAL: Extremities without clubbing, cyanosis, or edema. NEURO: Alert & Oriented x to person and place. Moves all ext x4 LLE slightly weaker than R A/P Problem List: (1) Hypertensive urgency ICD Codes: I16.0 - Hypertensive urgency Status: Acute Plan: 1. htn urgency. intermittent confusion/slur speech/leg weakness or dragging today per son r/o new tia/cva 2. hx pontine cva 3. old lacunar cva's 4. vascular dementia 5. hx uncontrolled htn 6. hypothyroidism plan MRI reveals no evidence of acute intracranial pathology. Chronic ischemic changes MRA recommends CTA of brain, discussed finding and option with patient and son including risks of contrast they would like to proceeded with CTA to fully evaluate CTA brain and carotids ordered BP improved cont home anticoagulation cont statin PT eval pt/son wish for dnr (2) History of pontine stroke Status: Chronic (3) Atrial fibrillation ICD Codes: I48.91 - Atrial fibrillation Status: Chronic (4) Hypothyroidism ICD Codes: E03.9 - Hypothyroidism Status: Chronic Taylor Allen Apr 21, 2017 09:36
--- NOTE | 2017-04-21 09:39 | RADRPT ---
EXAM DATE/TIME: 04/21/2017 08:12 [facility] COMPARISON: No previous studies available for comparison. INDICATIONS : Cerebrovascular accident. MEDICAL HISTORY : Hypothyroidism. Hypercholesterolemia. Osteoporosis. CVA. Numbness, fingers. CVA. HTN. Asthma. Gastric ulcer. GERD. Arthritis. Anemia. Cervical cancer. Anxiety. Anticoagulant therapy, Eliquis. SURGICAL HISTORY : Tonsillectomy. Appendectomy. Bilateral cataracts. Adenoidectomy. D&C. Blood transfusions. Bilateral hip replacements. ENCOUNTER: Initial ACUITY: 1 day PAIN SCORE: 2/10 LOCATION: Bilateral neck PEAK SYSTOLIC VELOCITIES (cm/sec): ICA/CCA RATIO: Right: 1.2 Left: 0.8 ICA: Right: 100 Left: 82 CCA: Right: 82 Left: 104 ECA: Right: 68 Left: 111 VERTEBRAL: Right: 46 antegrade Left: 42 antegrade Elevated flow velocities and ICA/CCA ratios have been found to correlate with increased degrees of vessel stenosis, calculated as percentage of diameter relative to a normal segment of distal ICA/CCA FINDINGS: RIGHT CAROTID: Calcified plaque with resultant mild, less than 50%, stenosis based on grayscale criteria. Waveforms are within normal limits. LEFT CAROTID: Mild plaque. No significant stenosis is visualized. The waveforms are within normal limits. VERTEBRAL ARTERIES: Antegrade flow is seen in both vertebral arteries. MISCELLANEOUS: None. CONCLUSION: 1. Calcified plaque in the right carotid bulb extending into the internal carotid origin with resulta nt mild, less than 50%, stenosis based on grayscale criteria. 2. Mild left carotid plaque without significant flow-limiting stenosis. Graham Florez MD on April 21, 2017 at 9:35 Board Certified Radiologist. This report was verified electronically.
[2017-04-21] MEDS: APIXABAN 5 MG TABLET PO SCH ×2 (09:57→20:53)
[2017-04-21] MEDS: LOSARTAN 50 MG TAB PO SCH ×2 (09:57→20:53)
[2017-04-21] MEDS: METOPROLOL TARTRATE 50 MG TAB PO SCH ×2 (09:57→20:54)
[2017-04-21] MEDS: GALANTAMINE HYDROBROMIDE 4 MG TAB PO SCH ×2 (10:31→20:52)
[2017-04-21] MEDS ORDERED: IOHEXOL 350 MG/ML 10 ML VIAL (for RAD DIAG) IVCONTRAST ONE (11:32)
--- NOTE | 2017-04-21 13:19 | RADRPT ---
EXAM DATE/TIME: 04/21/2017 11:16 [facility] COMPARISON: MRA BRAIN W/O CONTRAST, April 21, 2017, 1:02. INDICATIONS : Abnormal MRA IV CONTRAST: 88 cc Omnipaque 350 (iohexol) IV ; Cumulative dose for multiple exams. RADIATION DOSE: 26.36 CTDIvol (mGy) ; Combined studies MEDICAL HISTORY : Hypertension. Cardiovascular disease Cerebrovascular disease. SURGICAL HISTORY : None. ENCOUNTER: Initial ACUITY: 1 day PAIN SCALE: 0/10 LOCATION: cranial TECHNIQUE: Volumetric scanning was performed using a multi-row detector CT scanner. The data was post processed with a variety of visualization algorithms including full volume maximum intensity projection, multi -planar sliding thin slab reformation, curved planar reformation, and surface rendering techniques. Using automated exposure control and adjustment of the mA and/or kV according to patient size, radiat ion dose was kept as low as reasonably achievable to obtain optimal diagnostic quality images. DICO M format image data is available electronically for review and comparison. FINDINGS: Anterior circulation: CTA examination confirms extensive atherosclerotic calcifications of the cavernous carotid arteries b ilaterally with approximately 60-65% stenosis on the right and 70% stenosis on the left. This is like ly exaggerated by tortuosity and dense calcified plaque. MCA and VALENTIN branches are patent. There is no evidence for aneurysm, vessel truncation or stenosis, and no evidence for vascular malformation. Posterior circulation: Dominant right vertebral artery with diffuse calcified plaque distally at the vertebrobasilar junctio n with mild stenosis. Diffusely calcified basilar artery with tandem mild stenoses exaggerated by den se calcified plaque. There is no evidence for aneurysm, vessel occlusion, and no evidence for vascula r malformation. CONCLUSION: 1. CTA examination confirms extensive atherosclerotic calcifications of the cavernous carotid arterie s bilaterally with approximately 60-65% stenosis on the right and 70% stenosis on the left. This is e xaggerated by tortuosity and dense calcified plaque. 2. Dense calcified plaque in the distal vertebral arteries and basilar artery with tandem mild stenos es. Graham Florez MD on April 21, 2017 at 13:05 Board Certified Radiologist. This report was verified electronically.
--- NOTE | 2017-04-21 13:26 | RADRPT ---
EXAM DATE/TIME: 04/21/2017 11:16 [facility] COMPARISON: CTA CAROTID ARTERIES W 3D RECON, August 01, 2013, 17:33. INDICATIONS : Abnormal MRA IV CONTRAST: 88 cc Omnipaque 350 (iohexol) IV ; Cumulative dose for multiple exams. RADIATION DOSE: 26.36 CTDIvol (mGy) ; Combined studies MEDICAL HISTORY : Hypertension. Cardiovascular disease Cerebrovascular disease. SURGICAL HISTORY : None. ENCOUNTER: Initial ACUITY: 1 day PAIN SCALE: 0/10 LOCATION: neck Elevated flow velocities and ICA/CCA ratios have been found to correlate with increased degrees of vessel stenosis, calculated as percentage of diameter relative to a normal segment of distal ICA/CCA. TECHNIQUE: Volumetric scanning was performed using a multirow detector CT scanner. The data was post processed with a variety of visualization algorithms including full-volume maximum intensity projection, multip lanar sliding thin-slab reformation, curved-planar reformation, and surface-rendering techniques. Us ing automated exposure control and adjustment of the mA and/or kV according to patient size, radiatio n dose was kept as low as reasonably achievable to obtain optimal diagnostic quality images. DICOM f ormat image data is available electronically for review and comparison. FINDINGS: AORTIC ARCH: 3 vessel arch anatomy. Progressive calcified plaque at the origin of the left subclavian artery with resultant mild stenosis. RIGHT CAROTID: The common carotid artery is intact. Mild mixed plaque in the distal carotid bulb extending to the or igin of the internal carotid artery with resultant less than 20% stenosis. Internal carotid artery is otherwise patent to the skull base. External carotid artery is patent. LEFT CAROTID: The common carotid artery is intact. The carotid bulb has a normal configuration without ulceration or narrowing. Mixed plaque in the origin of the internal carotid artery with resultant less than 20% stenosis. Carotid artery is otherwise patent to the skull base. The external carotid artery is patent . VERTEBRALS: Dominant right vertebral artery. Dense calcified plaque in the distal vertebral arteries at the verte bral basilar junction with resultant mild stenoses. Nonvascular findings: Cervical soft tissues are grossly unremarkable without significant adenopathy or focal mass. Thyroid is unremarkable by CT. Visualized lung apices are clear. CONCLUSION: 1. Mild mixed plaque in the carotid arteries bilaterally with resultant less than 20% stenosis. 2. Dominant right vertebral artery with dense calcified plaque in the distal vertebral arteries near the vertebrobasilar junction resulting in tandem mild stenoses. Graham Florez MD on April 21, 2017 at 13:17 Board Certified Radiologist. This report was verified electronically.
[2017-04-21] MEDS ORDERED: POLYETHYLENE GLYCOL 17 GM PKG PO ONE (16:00)
--- NOTE | 2017-04-21 16:44 | EKG ---
Date Performed: 04/20/2017 Time Performed: 19:50:18 PTAGE: 81 years EKG: SINUS BRADYCARDIA MODERATE VOLTAGE CRITERIA FOR LVH, CONSIDER NORMAL VARIANT BORDERLINE ECG PREVIOUS TRACING : 04/11/2015 12.12 Clinical correlation is recommended DOCTOR: Carlos Fuller Interpretating Date/Time 04/21/2017 16:42:35
[2017-04-22] VITALS: BP 198/88; PULSE 59; PULSE 62; RESP 18; TEMP 98.1; O2SAT 97
[2017-04-22 04:00] VITALS: BP 141/64; PULSE 52; PULSE 53; RESP 16; TEMP 98.1; O2SAT 96
[2017-04-22] MEDS: LEVOTHYROXINE SODIUM 50 MCG TAB PO SCH (05:56)
[2017-04-22 08:00] VITALS: PULSE 75
[2017-04-22 08:10] VITALS: BP 133/60; PULSE 58; RESP 18; TEMP 97.5; O2SAT 97
--- NOTE | 2017-04-22 09:49 | HHI.PR ---
Subjective Remarks eager for d/c bp spike x 1 responded to clonidine son will take her home. Objective Vitals nad heart reg lung cta abd s/nt ext no edema Vital Signs Date Time Temp Pulse Resp B/P (MAP) Pulse Ox O2 Delivery O2 Flow Rate FiO2 04/22/17 08:10 97.5 58 18 133/60 (84) 97 04/22/17 04:00 98.1 53 16 141/64 (89) 96 04/22/17 04:00 52 04/22/17 00:00 59 04/22/17 00:00 98.1 62 18 198/88 (124) 97 04/21/17 20:00 Room Air 04/21/17 20:00 98.5 58 18 166/77 (106) 96 04/21/17 20:00 64 04/21/17 16:10 98.6 56 18 138/76 (96) 95 04/21/17 16:00 95 Room Air 04/21/17 15:55 61 04/21/17 12:42 04/21/17 12:36 98.1 53 18 156/74 (101) 95 04/21/17 10:32 58 129/62 (84) 95 Room Air Result Diagram: 04/20/17195004/20/171950 Imaging Last Impressions Head Magnetic Resonance Angiography 04/21/17 0000 Signed Impressions: Service Date/Time: Friday, April 21, 2017 01:02 - CONCLUSION: 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 Bolus infused CT angiography of the brain is recommended for further evaluation. Benji Copeland MD Brain MRI 04/21/17 0000 Signed Impressions: Service Date/Time: Friday, April 21, 2017 01:02 - CONCLUSION: 1. No evidence of acute intracranial pathology. Chronic ischemic changes as above. Benji Copeland MD Chest X-Ray 04/20/17 2030 Signed Impressions: Service Date/Time: Thursday, April 20, 2017 20:38 - CONCLUSION: Normal examination. Thaddeus Degroot MD Head CT 04/20/17 1802 Signed Impressions: Service Date/Time: Thursday, April 20, 2017 18:24 - CONCLUSION: Stable examination. Old lacunar infarcts. No evidence of hemorrhage or edema. Thaddeus Degroot MD A/P Problem List: (1) Hypertensive urgency ICD Codes: I16.0 - Hypertensive urgency Status: Acute Plan: 1. htn urgency. intermittent confusion/slur speech/leg weakness or dragging per son no new tia/cva on imaging. alot of intracranial atherosclerosis 2. hx pontine cva 3. old lacunar cva's 4. vascular dementia 5. hx uncontrolled htn 6. hypothyroidism plan discussed intracranial atherosclerosis with pt son cont anticoagulation cont home bp meds give script for prn clonidine and have son keep bp logbook for pcp to review. d/c home. (2) History of pontine stroke Status: Chronic (3) Atrial fibrillation ICD Codes: I48.91 - Atrial fibrillation Status: Chronic (4) Hypothyroidism ICD Codes: E03.9 - Hypothyroidism Status: Chronic Jose Cruz Cronin MD Apr 22, 2017 09:49
[2017-04-22] MEDS ORDERED: CLON.1 PO (09:50)
--- NOTE | 2017-04-22 09:50 | HHI.DCPOC ---
Discharge Care Plan Diagnosis: (1) Hypertensive urgency Goals to Promote Your Health * To prevent worsening of your condition and complications * To maintain your health at the optimal level Directions to Meet Your Goals Take your medications as prescribed Follow your dietary instruction Follow activity as directed Keep your appointments as scheduled Take your immunizations and boosters as scheduled If your symptoms worsen call your PCP, if no PCP go to Urgent Care Center or Emergency Room Smoking is Dangerous to Your Health. Avoid second hand smoke Call the 24-hour hour crisis hotline for domestic abuse at Jose Cruz Cronin MD Apr 22, 2017 09:50
[2017-04-22] MEDS: LOSARTAN 50 MG TAB PO SCH (11:16)
[2017-04-22] MEDS: METOPROLOL TARTRATE 50 MG TAB PO SCH (11:16)
[2017-04-22] MEDS: APIXABAN 5 MG TABLET PO SCH (11:17)
[2017-04-22] MEDS: GALANTAMINE HYDROBROMIDE 4 MG TAB PO SCH (11:17)
[2017-04-22] MEDS: PRAVASTATIN SOD 40 MG TAB PO SCH (11:17)
== END 2017-04-22 12:08 | disposition home or self-care (01) | DRG 305 ==
LOC: NEPC 17:52 → OBSVTOIN 23:06 → NEDA 23:06 → UNDOADMOB 23:08 → NEDH 04-21 04:11 → N04A 04-21 12:45
PROVIDERS: ADMIT Hospitalist; ATTEND Hospitalist
DX: I16.0 Hypertensive urgency (principal); F01.50 Vascular dementia, unspecified severity, without behavioral disturbance, psychotic disturbance, mood disturbance, and anxiety; I48.2 Chronic atrial fibrillation; I10 Essential (primary) hypertension; E03.9 Hypothyroidism, unspecified; Z86.73 Personal history of transient ischemic attack (TIA), and cerebral infarction without residual deficits; Z79.02 Long term (current) use of antithrombotics/antiplatelets; Z88.8 Allergy status to other drugs, medicaments and biological substances
CPT/HCPCS: 70450; 70496; 70498; 70544; 70551; 71045; 80053; 81001; 82550; 84484; 85025; 85610; 85730; 87804; 93005; 93880; Q9967

== ENCOUNTER 2017-07-05 20:44 | Inpatient (IN) | payer MEDICARE ==
[~2017-07-05] VITALS: Ht 160 cm; Wt 78.5 kg
[~2017-07-05 20:44] MED LIST changes: +APIX5TAB PO; -CALC500T42 PO; -CHOL50006 PO; -CIPR500T4 PO; -CLAR10TA7 PO; +CLON.1 PO; -COZA50TA PO; +GALA8CAP PO; -LEVO.05 PO; +LEVO50TA4 PO; +LOSA50TA PO; +METO50TA PO; +MULT1TAB46; -MULTCAP3 PO; -PRAV40 PO; +PRAV40TA2 PO; -TOPR50TA PO; -WARF1TAB PO; -WARF3TAB PO
[2017-07-05 20:52] VITALS: BP 191/90; PULSE 67; RESP 16; TEMP 97.7; O2SAT 100
[2017-07-05 21:19] VITALS: O2SAT 100
[2017-07-05 21:23] VITALS: BP 210/95; PULSE 60; RESP 17; O2SAT 100
[2017-07-05] MEDS ORDERED: SODIUM CHLORIDE 0.9% FLUSH 10 ML FLUSH IVF PRN (21:30)
--- NOTE | 2017-07-05 21:36 | PD ---
HPI Chief Complaint: Chest Pain Time Seen by Provider: 21:14 Travel History International Travel<30 days: No Contact w/Intl Traveler<30days: No Traveled to known affect area: No History of Present Illness HPI This is an 81-year-old female with a history of coronary artery disease, hyperlipidemia, atrial fibrillation, previous CVA, hypothyroidism, presented today with complaints of chest pain. Both the patient and the son stated about 745 she started complaining of substernal chest pain. She reports it as a 6-7 on the pain scale. She reported as sharp and pressure-like. She states that the pain is much more improved. She states that just feels like a ball in her chest at this time. There was associated shortness of breath with the discomfort. There is no nausea or diaphoresis. The patient is currently taking Eliquis. Aspirin will not be given that she has allergies to multiple medications including aspirin like meds. PFSH Past Medical History Hx Anticoagulant Therapy: Yes Anemia: Yes Arthritis: Yes Asthma: Yes Blood Disorders: Yes (BLOOD TRANSFUSION X 2) Anxiety: Yes Depression: No Heart Rhythm Problems: No Cancer: Yes (CERVICAL) Cardiac Catheterization: No Cardiovascular Problems: Yes High Cholesterol: Yes Chemotherapy: No Congestive Heart Failure: No Cerebrovascular Accident: Yes (X2) Diabetes: No Diminished Hearing: No Endocrine: No Gastrointestinal Disorders: Yes GERD: Yes Genitourinary: No Hiatal Hernia: Yes Hypertension: Yes Immune Disorder: No Implanted Vascular Access Dvce: Yes Musculoskeletal: Yes Neurologic: Yes Psychiatric: Yes Reproductive: No Respiratory: Yes Immunizations Current: Yes Radiation Therapy: No Thyroid Disease: Yes (HYPOTHYROID) Ulcer: Yes (GASTRIC) Menopausal: Yes Dilation and Curettage (D&C): Yes Past Surgical History Abdominal Surgery: Yes (EXPL. LAP) AICD: No Appendectomy: Yes Arteriovenous Shunt: No Coronary Artery Bypass Graft: No Eye Surgery: Yes Genitourinary Surgery: Yes Gynecologic Surgery: Yes (D&C) Hysterectomy: No Insulin Pump: No Joint Replacement: Yes (NANCY HIP) Oral Surgery: Yes (T & A) Pacemaker: No Tonsillectomy: Yes Other Surgery: Yes Social History Alcohol Use: No Tobacco Use: No Substance Use: No Allergies-Medications (Allergen,Severity, Reaction): Coded Allergies: baclofen (Unverified Allergy, Severe, DYSPNEA, CHOKING, 11/25/16) carisoprodol (Unverified Allergy, Severe, DYSPNEA, CHOKING, 11/25/16) celecoxib (Unverified Allergy, Severe, Dyspepsia, 11/25/16) chlorzoxazone (Unverified Allergy, Severe, DYSPNEA, CHOKING, 11/25/16) clarithromycin (Unverified Allergy, Severe, SOB, 11/25/16) codeine (Unverified Allergy, Severe, ANAPHYLAXIS, 11/25/16) cyclobenzaprine (Unverified Allergy, Severe, DYSPNEA, CHOKING, 11/25/16) gemfibrozil (Unverified Allergy, Severe, CAUSES PALPITATIONS, 11/25/16) metaxalone (Unverified Allergy, Severe, DYSPNEA, CHOKING, 11/25/16) methocarbamol (Unverified Allergy, Severe, DYSPNEA, CHOKING, 11/25/16) tizanidine (Unverified Allergy, Severe, DYSPNEA, CHOKING, 11/25/16) amlodipine (Unverified Adverse Reaction, Severe, LIPITOR ZOCOR MEVACOR- MYALGIAS AND DIZZINESS, 11/25/16) atorvastatin (Unverified Adverse Reaction, Severe, LIPITOR ZOCOR MEVACOR- MYALGIAS AND DIZZINESS, 11/25/16) diclofenac (Unverified Adverse Reaction, Severe, CEKEBREX VIOXX - DYSPEPSIA, 11/25/16) etodolac (Unverified Adverse Reaction, Severe, CEKEBREX VIOXX - DYSPEPSIA , 11/25/16) flurbiprofen (Unverified Adverse Reaction, Severe, CEKEBREX VIOXX - DYSPEPSIA, 11/25/16) furosemide (Unverified Adverse Reaction, Severe, GENERIC LASIX - MUSCLE CRAMPS, 11/25/16) gabapentin (Unverified Adverse Reaction, Severe, MUSCLE CRAMPS, 11/25/16) ibuprofen (Unverified Adverse Reaction, Severe, CEKEBREX VIOXX - DYSPEPSIA , 11/25/16) indomethacin (Unverified Adverse Reaction, Severe, CEKEBREX VIOXX - DYSPEPSIA, 11/25/16) ketoprofen (Unverified Adverse Reaction, Severe, CEKEBREX VIOXX - DYSPEPSIA, 11/25/16) ketorolac (Unverified Adverse Reaction, Severe, CEKEBREX VIOXX - DYSPEPSIA , 11/25/16) lansoprazole (Unverified Adverse Reaction, Severe, Diarrhea, 11/25/16) lovastatin (Unverified Adverse Reaction, Severe, MYALGIAS AND DIZZINESS, ) naproxen (Unverified Adverse Reaction, Severe, CEKEBREX VIOXX - DYSPEPSIA , 11/25/16) omeprazole (Unverified Adverse Reaction, Severe, DIARRHEA, 11/25/16) oxaprozin (Unverified Adverse Reaction, Severe, CEKEBREX VIOXX - DYSPEPSIA , 11/25/16) pravastatin (Unverified Adverse Reaction, Severe, LIPITOR ZOCOR MEVACOR- MYALGIAS AND DIZZINESS, 11/25/16) rofecoxib (Unverified Adverse Reaction, Severe, MUSCLE CRAMPING, 11/25/16) simvastatin (Unverified Adverse Reaction, Severe, MYLAGIAS AND DIZZINESS, 11/25/16) sodium phosphate (Unverified Adverse Reaction, Severe, N/V, 11/25/16) Uncoded Allergies: ALLERGY SHOTS (Allergy, Severe, ASTHMA, 05/22/13) CHOLESTEROL MEDICATIONS (Adverse Reaction, Severe, MUSCLE CRAMPS, 05/22/13) OSTEOPOROSIS MEDICATIONS (Adverse Reaction, Severe, JAW EROSION, 05/22/13) Reported Meds & Prescriptions Reported Meds & Active Scripts Active Catapres (Clonidine) 0.1 Mg Tab 0.1 Mg PO Q4H PRN Reported Losartan (Losartan Potassium) 50 Mg Tab 50 Mg PO BID Pravastatin 40 Mg Tab 40 Mg PO DAILY Eliquis (Apixaban) 5 Mg Tab 5 Mg PO BID Galantamine ER (Galantamine Hydrobromide) 8 Mg Caper 8 Mg PO DAILY Levothyroxine (Levothyroxine Sodium) 50 Mcg Tab 50 Mcg PO DAILY Metoprolol Tartrate 50 Mg Tab 50 Mg PO BID Multi Vitamin Daily (Multiple Vitamin) 1 Tab Tab Review of Systems Except as stated in HPI: all other systems reviewed are Neg General / Constitutional: No: Fever, Chills HENT: No: Headaches Cardiovascular: Positive: Chest Pain or Discomfort, No: Palpitations, Irregular Rhythm Respiratory: Positive: Shortness of Breath, No: Cough, Wheezing Gastrointestinal: No: Nausea, Vomiting, Abdominal Pain Genitourinary: No: Urgency, Frequency Musculoskeletal: No: Weakness, Pain Neurologic: No: Weakness, Dizziness, Headache Physical Exam Narrative GENERAL: Well-developed well-nourished female in no acute respiratory distress. SKIN: Focused skin assessment warm/dry. HEAD: Atraumatic. Normocephalic. EYES: No scleral icterus. No injection or drainage. ENT: No nasal bleeding or discharge. Mucous membranes pink and moist. NECK: Trachea midline. No JVD. CARDIOVASCULAR: Regular rate and rhythm. No murmur appreciated. No obvious murmurs appreciated. RESPIRATORY: No accessory muscle use. Clear to auscultation. Breath sounds equal bilaterally. GASTROINTESTINAL: Abdomen soft, non-tender, nondistended. MUSCULOSKELETAL: No obvious deformities. No clubbing. No cyanosis. No edema. NEUROLOGICAL: Awake and alert. No obvious cranial nerve deficits. Motor grossly within normal limits. Normal speech. Data Data Last Documented VS Vital Signs Date Time Temp Pulse Resp B/P (MAP) Pulse Ox O2 Delivery O2 Flow Rate FiO2 07/05/17 21:23 60 17 210/95 (133) 100 Room Air 07/05/17 20:52 97.7 Orders Orders Electrocardiogram (07/05/17 21:16) Ckmb (Isoenzyme) Profile (07/05/17 21:16) Complete Blood Count With Diff (07/05/17 21:16) Comprehensive Metabolic Panel (07/05/17 21:16) Prothrombin Time / Inr (Pt) (07/05/17 21:16) Act Partial Throm Time (Ptt) (07/05/17 21:16) Troponin I (07/05/17 21:16) Chest, Single Ap (07/05/17 21:16) Ecg Monitoring (07/05/17 21:16) Iv Access Insert/Monitor (07/05/17 21:16) Oximetry (07/05/17 21:16) Oxygen Administration (07/05/17 21:16) Sodium Chloride 0.9% Flush (Ns Flush) (07/05/17 21:30) CKMB (07/05/17 21:24) CKMB% (07/05/17 21:24) Activity Bed Rest With Brp (07/05/17 23:06) Vital Signs (Adult) Q4H (3/25/18 23:06) Cardiac Rhythm .As Directed (07/05/17 23:06) Notify Dr: Other .PRN (07/05/17 23:06) Notify Parameters (07/05/17 23:06) Resp Oxygen Nasal Cannula (07/05/17 ) Ckmb (Isoenzyme) Profile (07/06/17 00:15) Ckmb (Isoenzyme) Profile (07/06/17 03:15) Troponin I (07/06/17 00:15) Troponin I (07/06/17 03:15) Electrocardiogram (07/06/17 00:15) Electrocardiogram (07/06/17 03:15) ^ Obtain (07/05/17 23:06) Sodium Chloride 0.9% Flush (Ns Flush) (07/05/17 23:15) Senior Linux Systems Administrator / Telemetry ANDERS.Q8H (07/05/17 23:06) Admit Order (Ed Use Only) (07/05/17 23:10) Labs Laboratory Tests Test 07/05/17 21:24 07/05/17 22:35 Blood Urea Nitrogen 19 MG/DL Creatinine 1.00 MG/DL Random Glucose 99 MG/DL Total Protein 7.6 GM/DL Albumin 3.5 GM/DL Calcium Level 9.2 MG/DL Alkaline Phosphatase 77 U/L Aspartate Amino Transf (AST/SGOT) 51 U/L Alanine Aminotransferase (ALT/SGPT) 28 U/L Total Bilirubin 0.3 MG/DL Sodium Level 138 MEQ/L Potassium Level 4.3 MEQ/L Chloride Level 105 MEQ/L Carbon Dioxide Level 24.9 MEQ/L Anion Gap 8 MEQ/L Estimat Glomerular Filtration Rate 53 ML/MIN Total Creatine Kinase 131 U/L Creatine Kinase MB 1.4 NG/ML Troponin I LESS THAN 0.02 NG/ML White Blood Count 5.3 TH/MM3 Red Blood Count 3.49 MIL/MM3 Hemoglobin 11.5 GM/DL Hematocrit 33.5 % Mean Corpuscular Volume 96.0 FL Mean Corpuscular Hemoglobin 32.9 PG Mean Corpuscular Hemoglobin Concent 34.3 % Red Cell Distribution Width 13.9 % Platelet Count 170 TH/MM3 Mean Platelet Volume 7.6 FL Neutrophils (%) (Auto) 49.5 % Lymphocytes (%) (Auto) 33.4 % Monocytes (%) (Auto) 10.5 % Eosinophils (%) (Auto) 6.1 % Basophils (%) (Auto) 0.5 % Neutrophils # (Auto) 2.6 TH/MM3 Lymphocytes # (Auto) 1.8 TH/MM3 Monocytes # (Auto) 0.6 TH/MM3 Eosinophils # (Auto) 0.3 TH/MM3 Basophils # (Auto) 0.0 TH/MM3 CBC Comment DIFF FINAL Differential Comment Prothrombin Time 11.8 SEC Prothromb Time International Ratio 1.2 RATIO Activated Partial Thromboplast Time 27.3 SEC MDM Medical Decision Making Medical Screen Exam Complete: Yes Emergency Medical Condition: Yes Interpretation(s) EKG shows sinus rhythm with a rate of 62. There is no acute ST elevations or depressions. Differential Diagnosis ACS versus GERD versus muscular skeletal pain Narrative Course 81-year-old female who presents today with complaints of episode of chest pain. The patient states it started at 745. It lasted about 10-15 minutes. Patient states she has never had pain like this. EKG shows no evidence of acute ST elevation or depression. Patient does have a history of A. fib. Cardiac enzymes are within normal limits. Patient will be admitted to the chest pain center. I discussed this with both the patient and her son and they are agreeable to this plan. She will likely not be able to walk on the treadmill however is a candidate for a nuclear stress test. Diagnosis Primary Impression: Chest pain Additional Impressions: History of hypertension History of CVA Admitting Information Admitting Physician Requests: Rob Mendosa MD Jul 05, 2017 21:36
--- NOTE | 2017-07-05 21:44 | RADRPT ---
EXAM DATE/TIME: 07/05/2017 21:33 [facility] COMPARISON: CHEST SINGLE AP, April 20, 2017, 20:38. INDICATIONS : Chest pain, to anterior portion of chest. MEDICAL HISTORY : Hypertension. Asthma. SURGICAL HISTORY : None. ENCOUNTER: Initial ACUITY: 1 day PAIN SCORE: 5/10 LOCATION: Bilateral chest FINDINGS: A single view of the chest demonstrates the lungs to be symmetrically aerated without evidence of mas s, infiltrate or effusion. The cardiomediastinal contours are unremarkable. Osseous structures are intact. CONCLUSION: No acute disease. Jayant Luis MD FACR on July 05, 2017 at 21:41 Board Certified Radiologist. This report was verified electronically.
[2017-07-05 22:11] LABS: ALBUMIN 3.5 GM/DL (3.4-5.0); AST (GOT) 51 U/L (15-37); BICARBONATE 24.9 MEQ/L (21.0-32.0); BLOOD UREA NITROGEN 19 MG/DL (7-18); CALCIUM 9.2 MG/DL (8.5-10.1); CHLORIDE 105 MEQ/L (98-107); GLOMERULAR FILTRATION RATE 53 ML/MIN (>89); GLUCOSE,RANDOM 99 MG/DL (74-106); SODIUM (NA) 138 MEQ/L (136-145)
[2017-07-05 22:15] LABS: ALKALINE PHOSPHATASE 77 U/L (45-117); ALT (GPT) 28 U/L (10-53); TOTAL BILIRUBIN ADULT 0.3 MG/DL (0.2-1.0); TOTAL PROTEIN 7.6 GM/DL (6.4-8.2); TROPONIN I LESS THAN 0.02 NG/ML (0.02-0.05)
[2017-07-05 23:12] LABS: INTERNATIONAL NORMALIZED RATIO 1.2 RATIO; PROTHROMBIN TIME - PATIENT 11.8 SEC (9.8-11.6)
[2017-07-05] MEDS ORDERED: IOHEXOL 350 MG/ML 50 ML BTL (for Cath Lab) OTHER ONE (23:13)
[2017-07-05] MEDS ORDERED: SODIUM CHLORIDE 0.9% FLUSH 10 ML FLUSH IV FLUSH PRN (23:15)
[2017-07-06] VITALS (13 sets, daily range): BP systolic 144–194; BP diastolic 71–109; PULSE 49–64; RESP 12–20; TEMP 97.5–98.3; O2SAT 97–100
[2017-07-06] LABS: AUTOMATED NEUTROPHIL # 2.6 TH/MM3 (1.8-7.7); BASOPHIL % 0.5 % (0.0-2.0); EOSINOPHIL # 0.3 TH/MM3 (0-0.4); EOSINOPHIL % 6.1 % (0.0-4.0); HEMATOCRIT 33.5 % (35.0-46.0); HEMOGLOBIN 11.5 GM/DL (11.6-15.3); LYMPH % 33.4 % (9.0-44.0); LYMPHOCYTE # 1.8 TH/MM3 (1.0-4.8); MEAN CORPUSCULAR HEMOGLOBIN 32.9 PG (27.0-34.0); MEAN CORPUSCULAR HGB CONC 34.3 % (32.0-36.0); MEAN PLATELET VOLUME 7.6 FL (7.0-11.0); MONO % 10.5 % (0.0-8.0); MONOCYTE # 0.6 TH/MM3 (0-0.9); NEUT % 49.5 % (16.0-70.0); PLATELET COUNT 170 TH/MM3 (150-450); RED BLOOD COUNT 3.49 MIL/MM3 (4.00-5.30); RED CELL DISTRIBUTION WIDTH 13.9 % (11.6-17.2); WHITE BLOOD COUNT 5.3 TH/MM3 (4.0-11.0)
[2017-07-06 01:14] LABS: TROPONIN I LESS THAN 0.02 NG/ML (0.02-0.05)
[2017-07-06] MEDS ORDERED: cloNIDine HCL 0.1 MG TAB PO ONE (02:00)
[2017-07-06] MEDS ORDERED: TEMAZEPAM 15 MG CAP PO ONE (02:00)
[2017-07-06] MEDS ORDERED: FUROSEMIDE 20 MG/2 ML VIAL IV PUSH ONE (02:00)
[2017-07-06] MEDS ORDERED: cloNIDine HCL 0.1 MG TAB PO PRN (04:00)
[2017-07-06] MEDS ORDERED: FUROSEMIDE 20 MG/2 ML VIAL IV PUSH PRN (04:00)
[2017-07-06 04:39] LABS: TROPONIN I LESS THAN 0.02 NG/ML (0.02-0.05)
[2017-07-06] MEDS: PRAVASTATIN SOD 40 MG TAB PO SCH (09:00)
[2017-07-06] MEDS ORDERED: METOPROLOL TARTRATE 50 MG TAB PO SCH ×2 (09:00→21:00)
[2017-07-06] MEDS ORDERED: REGADENOSON INJ 0.4 MG/5 ML SYR ONE (09:38)
--- NOTE | 2017-07-06 09:54 | HHI.HP ---
[facility] Primary Care Physician Louise Abdalla MD Chief Complaint Chest pain History of Present Illness This is a 81-year-old female that presents to ED with history of hypertension, hyperlipidemia, hypothyroidism with complaint of chest discomfort that she did have intermittently since last summer. She states "it happens once in a blue han." Cannot recall anything in particular brings on. He is a last a couple minutes but yesterday it lasted about 30 minutes and it was more intense. Denies associated shortness breath, nausea, or diaphoresis. Denies recent illness. Voices compliance with medications. She has spoken with her primary care physician with this. She cannot recall any tests or consult being requested. Review of Systems General: Patient denies fevers, chills, and recent travel. HEENT: Patient denies headache, sore throat, difficulty swallowing. Cardiovascular: Has the chest discomfort as mentioned above. Denies sensation of heart beating rapidly or irregularly. No syncope. Denies diaphoresis. Respiratory: Denies shortness of breath or inspirational chest discomfort. Denies coughing wheezing or hemoptysis. GI: Patient denies nausea, vomiting, diarrhea, abdominal pain, bloody stools. Musculoskeletal: Patient denies joint pain or edema. Denies calf pain or edema. Neurovascular: Patient denies numbness, tingling, weakness in extremities. Denies headache. Endocrine: Denies polyuria and polydipsia. Hematologic: Denies easy bruising. Skin: Denies rash or itching. Past Family Social History Allergies: Coded Allergies: baclofen (Unverified Allergy, Severe, DYSPNEA, CHOKING, 11/25/16) carisoprodol (Unverified Allergy, Severe, DYSPNEA, CHOKING, 11/25/16) celecoxib (Unverified Allergy, Severe, Dyspepsia, 11/25/16) chlorzoxazone (Unverified Allergy, Severe, DYSPNEA, CHOKING, 11/25/16) clarithromycin (Unverified Allergy, Severe, SOB, 11/25/16) codeine (Unverified Allergy, Severe, ANAPHYLAXIS, 11/25/16) cyclobenzaprine (Unverified Allergy, Severe, DYSPNEA, CHOKING, 11/25/16) gemfibrozil (Unverified Allergy, Severe, CAUSES PALPITATIONS, 11/25/16) metaxalone (Unverified Allergy, Severe, DYSPNEA, CHOKING, 11/25/16) methocarbamol (Unverified Allergy, Severe, DYSPNEA, CHOKING, 11/25/16) tizanidine (Unverified Allergy, Severe, DYSPNEA, CHOKING, 11/25/16) amlodipine (Unverified Adverse Reaction, Severe, LIPITOR ZOCOR MEVACOR- MYALGIAS AND DIZZINESS, 11/25/16) atorvastatin (Unverified Adverse Reaction, Severe, LIPITOR ZOCOR MEVACOR- MYALGIAS AND DIZZINESS, 11/25/16) diclofenac (Unverified Adverse Reaction, Severe, CEKEBREX VIOXX - DYSPEPSIA, 11/25/16) etodolac (Unverified Adverse Reaction, Severe, CEKEBREX VIOXX - DYSPEPSIA , 11/25/16) flurbiprofen (Unverified Adverse Reaction, Severe, CEKEBREX VIOXX - DYSPEPSIA, 11/25/16) furosemide (Unverified Adverse Reaction, Severe, GENERIC LASIX - MUSCLE CRAMPS, 11/25/16) gabapentin (Unverified Adverse Reaction, Severe, MUSCLE CRAMPS, 11/25/16) ibuprofen (Unverified Adverse Reaction, Severe, CEKEBREX VIOXX - DYSPEPSIA , 11/25/16) indomethacin (Unverified Adverse Reaction, Severe, CEKEBREX VIOXX - DYSPEPSIA, 11/25/16) ketoprofen (Unverified Adverse Reaction, Severe, CEKEBREX VIOXX - DYSPEPSIA, 11/25/16) ketorolac (Unverified Adverse Reaction, Severe, CEKEBREX VIOXX - DYSPEPSIA , 11/25/16) lansoprazole (Unverified Adverse Reaction, Severe, Diarrhea, 11/25/16) lovastatin (Unverified Adverse Reaction, Severe, MYALGIAS AND DIZZINESS, ) naproxen (Unverified Adverse Reaction, Severe, CEKEBREX VIOXX - DYSPEPSIA , 11/25/16) omeprazole (Unverified Adverse Reaction, Severe, DIARRHEA, 11/25/16) oxaprozin (Unverified Adverse Reaction, Severe, CEKEBREX VIOXX - DYSPEPSIA , 11/25/16) pravastatin (Unverified Adverse Reaction, Severe, LIPITOR ZOCOR MEVACOR- MYALGIAS AND DIZZINESS, 11/25/16) rofecoxib (Unverified Adverse Reaction, Severe, MUSCLE CRAMPING, 11/25/16) simvastatin (Unverified Adverse Reaction, Severe, MYLAGIAS AND DIZZINESS, 11/25/16) sodium phosphate (Unverified Adverse Reaction, Severe, N/V, 11/25/16) Uncoded Allergies: ALLERGY SHOTS (Allergy, Severe, ASTHMA, 05/22/13) CHOLESTEROL MEDICATIONS (Adverse Reaction, Severe, MUSCLE CRAMPS, 05/22/13) OSTEOPOROSIS MEDICATIONS (Adverse Reaction, Severe, JAW EROSION, 05/22/13) Past Medical History Dementia, hypertension, hypothyroidism, hyperlipidemia. Denies diabetes and known CAD. Past Surgical History Tonsillectomy, bilateral hips, appendectomy, D&C, exploratory laparoscopy. Reported Medications Reported Meds & Active Scripts Active Catapres (Clonidine) 0.1 Mg Tab 0.1 Mg PO Q4H PRN Reported Losartan (Losartan Potassium) 50 Mg Tab 50 Mg PO BID Pravastatin 40 Mg Tab 40 Mg PO DAILY Eliquis (Apixaban) 5 Mg Tab 5 Mg PO BID Galantamine ER (Galantamine Hydrobromide) 8 Mg Caper 8 Mg PO DAILY Levothyroxine (Levothyroxine Sodium) 50 Mcg Tab 50 Mcg PO DAILY Metoprolol Tartrate 50 Mg Tab 50 Mg PO BID Multi Vitamin Daily (Multiple Vitamin) 1 Tab Tab Active Ordered Medications Current Medications Medications (Trade) Dose Ordered Sig/Pablo Route Start Time Stop Time Status Last Admin (NS Flush) 2 ml UNSCH PRN IVF 07/05/17 21:30 (NS Flush) 2 ml UNSCH PRN IV FLUSH 07/05/17 23:15 (Catapres) 0.1 mg Q4H PRN PO 07/06/17 07:45 (Synthroid) 50 mcg DAILY@0600 PO 07/06/17 08:21 (Cozaar) 50 mg BID PO 07/06/17 09:00 (Lopressor) 50 mg BID PO 07/06/17 09:00 (Pravachol) 40 mg DAILY PO 07/06/17 09:00 (Razadyne) 4 mg BID PO 07/06/17 09:00 Family History She really is not calling her family history of coronary artery disease. Social History Non-smoker. Denies alcohol or illicit drug use. Physical Exam Vital Signs Vital Signs Date Time Temp Pulse Resp B/P (MAP) Pulse Ox O2 Delivery O2 Flow Rate FiO2 07/06/17 07:14 97 21 07/06/17 07:10 97.7 53 12 144/73 (96) 98 07/06/17 04:00 54 07/06/17 03:14 98.1 60 18 153/71 (98) 97 07/06/17 01:13 97.7 59 18 192/109 (136) 98 07/05/17 23:54 07/05/17 21:23 60 17 210/95 (133) 100 Room Air 07/05/17 21:19 100 Room Air 07/05/17 21:16 61 17 99 Room Air 07/05/17 20:52 97.7 67 16 191/90 (123) 100 Room Air Physical Exam GENERAL: This is a well-nourished, well-developed patient, in no apparent distress. Patient speaks in clear complete sentences. Patient is pleasant. HEENT: Head is atraumatic and normocephalic. Neck is supple without lymphadenopathy and trachea is midline. No JVD or carotid bruits. CARDIOVASCULAR: Regular rate and rhythm without murmurs, gallops, or rubs. RESPIRATORY: Clear to auscultation. Breath sounds equal bilaterally. No wheezes , rales, or rhonchi. Chest wall is nontender. No use of accessory muscles. GASTROINTESTINAL: Abdomen is nontender, nondistended. Abdomen soft. No obvious pulsatile mass or bruit. No CVA tenderness. Strong femoral pulses bilaterally. Normal bowel sounds in all quadrants. MUSCULOSKELETAL: Patient is moving upper and lower extremities freely. No calf tenderness or edema, no Homans sign. Strong pulses in upper and lower extremities. NEUROLOGICAL: Patient is alert and oriented. Cranial nerves 2-12 are grossly intact. No focal deficits and speech is clear. SKIN: No rash and turgor is normal. Laboratory Laboratory Tests Test 07/05/17 21:24 07/05/17 22:35 07/06/17 00:25 07/06/17 03:30 Blood Urea Nitrogen 19 Creatinine 1.00 Random Glucose 99 Total Protein 7.6 Albumin 3.5 Calcium Level 9.2 Alkaline Phosphatase 77 Aspartate Amino Transf (AST/SGOT) 51 Alanine Aminotransferase (ALT/SGPT) 28 Total Bilirubin 0.3 Sodium Level 138 Potassium Level 4.3 Chloride Level 105 Carbon Dioxide Level 24.9 Anion Gap 8 Estimat Glomerular Filtration Rate 53 Total Creatine Kinase 131 77 60 Creatine Kinase MB 1.4 Troponin I LESS THAN 0.02 LESS THAN 0.02 LESS THAN 0.02 White Blood Count 5.3 Red Blood Count 3.49 Hemoglobin 11.5 Hematocrit 33.5 Mean Corpuscular Volume 96.0 Mean Corpuscular Hemoglobin 32.9 Mean Corpuscular Hemoglobin Concent 34.3 Red Cell Distribution Width 13.9 Platelet Count 170 Mean Platelet Volume 7.6 Neutrophils (%) (Auto) 49.5 Lymphocytes (%) (Auto) 33.4 Monocytes (%) (Auto) 10.5 Eosinophils (%) (Auto) 6.1 Basophils (%) (Auto) 0.5 Neutrophils # (Auto) 2.6 Lymphocytes # (Auto) 1.8 Monocytes # (Auto) 0.6 Eosinophils # (Auto) 0.3 Basophils # (Auto) 0.0 CBC Comment DIFF FINAL Differential Comment Prothrombin Time 11.8 Prothromb Time International Ratio 1.2 Activated Partial Thromboplast Time 27.3 Result Diagram: 07/05/17223407/05/172123 Imaging Chest x-ray reveals nothing acute. Course EKGs are sinus rhythm without significant ST segment depressions or elevations. Caprini VTE Risk Assessment Caprini VTE Risk Assessment: Mod/High Risk (score >= 2) Caprini Risk Assessment Model Point Value = 1 Point Value = 2 Point Value = 3 Point Value = 5 Age 41-60 Minor surgery BMI > 25 kg/m2 Swollen legs Varicose veins or History of unexplained or recurrent spontaneous Oral contraceptives or hormone replacement Sepsis (< 1 month) Serious lung disease, including pneumonia (< 1 month) Abnormal pulmonary function Acute myocardial infarction Congestive heart failure (< 1 month) History of inflammatory bowel disease Medical patient at bed rest Age 61-74 Arthroscopic surgery Major open surgery (> 45 min) Laparoscopic surgery (> 45 min) Malignancy Confined to bed (> 72 hours) Immobilizing plaster cast Central venous access Age >= 75 History of VTE Family history of VTE Factor V Leiden Prothrombin [id number] Lupus anticoagulant Anticardiolipin antibodies Elevated serum homocysteine Heparin-induced thrombocytopenia Other congenital or acquired thrombophilia Stroke (< 1 month) Elective arthroplasty Hip, pelvis, or leg fracture Acute spinal cord injury (< 1 month) Prophylaxis Regimen Total Risk Factor Score Risk Level Prophylaxis Regimen 0-1 Low Early ambulation 2 Moderate Order ONE of the following: *Sequential Compression Device (SCD) *Heparin 5000 units SQ BID 3-4 Higher Order ONE of the following medications: *Heparin 5000 units SQ TID *Enoxaparin/Lovenox 40 mg SQ daily (WT < 150 kg, CrCl > 30 mL/min) *Enoxaparin/Lovenox 30 mg SQ daily (WT < 150 kg, CrCl > 10-29 mL/min) *Enoxaparin/Lovenox 30 mg SQ BID (WT < 150 kg, CrCl > 30 mL/min) AND/OR *Sequential Compression Device (SCD) 5 or more Highest Order ONE of the following medications: *Heparin 5000 units SQ TID (Preferred with Epidurals) *Enoxaparin/Lovenox 40 mg SQ daily (WT < 150 kg, CrCl > 30 mL/min) *Enoxaparin/Lovenox 30 mg SQ daily (WT < 150 kg, CrCl > 10-29 mL/min) *Enoxaparin/Lovenox 30 mg SQ BID (WT < 150 kg, CrCl > 30 mL/min) AND *Sequential Compression Device (SCD) Assessment and Plan Assessment and Plan * Chest pain: Patient has had serial cardiac enzymes and EKGs for ruling out purposes. She was seen by Dr. Benji Crain of cardiology in the chest pain center. She will have a Lexiscan. She will be discharged home if her stress test is nonischemic with instructions to follow-up with PCP. Return to ED for interval issues. * Hypertension: Continue medications. * Hyperlipidemia: Continue medications. * Hypothyroidism: Continue current medication. Patient is stable at this time. She is agreeable to this plan. Omar Jiménez Jul 06, 2017 09:54
[2017-07-06] MEDS: LEVOTHYROXINE SODIUM 50 MCG TAB PO SCH (11:13)
[2017-07-06] MEDS: LOSARTAN 50 MG TAB PO SCH ×2 (11:14→20:38)
--- NOTE | 2017-07-06 11:23 | RADRPT ---
EXAM DATE/TIME: 07/06/2017 09:15 [place] COMPARISON: No previous studies available for comparison. INDICATIONS : Substernal chest pain. Atrial fibrillation. Angina. Coronary artery disease. DOSE: 25.5 mCi Tc99m Myoview at stress. 8.3 mCi Tc99m Myoview at rest. 0.4 mg Lexiscan STRESS SYMPTOMS: Asymptomatic. EJECTION FRACTION: > 70% MEDICAL HISTORY : Hypertension. Hypothyroidism. Stroke. Cervical cancer. SURGICAL HISTORY : Appendectomy. Bilateral hip replacement. ENCOUNTER: Initial ACUITY: 1 day PAIN SCALE: 5/10 LOCATION: Substernal chest TECHNIQUE: The patient underwent pharmacologic stress with infusion of prescribed dose. Continuous ECG tracing was monitored during stress. Gated SPECT imaging was performed after stress and conventional SPECT i maging was performed at rest. The examination was performed on a SPECT/CT scanner, both attenuation and non-corrected datasets were reviewed. FINDINGS: DISTRIBUTION: The maximum perfused segment at stress is in the inferior wall. PERFUSION STUDY: A reversible stress induced perfusion abnormalities identified in the anterolateral wall of the left ventricle. There are no fixed perfusion abnormalities. GATED STUDY: There is intact wall motion and thickening without hypokinetic or dyskinetic segments. CONCLUSION: 1. Moderate-sized stress-induced perfusion abnormality in the anterolateral wall. 2. Well-preserved ventricular wall motion and ejection fraction. RISK CATEGORY: Intermediate (1-3% Annual Mortality Rate) Alejandro Goff MD on July 06, 2017 at 11:17 Board Certified Radiologist. This report was verified electronically.
[2017-07-06] MEDS: GALANTAMINE HYDROBROMIDE 4 MG TAB PO SCH ×2 (12:50→20:38)
[2017-07-06] MEDS ORDERED: PILL SPLITTER OTHER PRN (14:30)
--- NOTE | 2017-07-06 14:51 | MB ---
cc: Thaddeus Carver MD DATE: 07/06/2017 INDICATION: Abnormal stress test. HISTORY OF PRESENT ILLNESS: This is a very nice 81-year-old female with history of hypertension, dyslipidemia, hypothyroidism who presents now with chest pain. The third episode of chest pain worse in the last 1 week. She states they last about 30 minutes, was substernal in nature. She underwent stress test, which showed a moderate abnormality. We were consulted for further recommendations. PAST MEDICAL HISTORY: Hypertension, atrial fibrillation, dementia, hypothyroidism, hyperlipidemia. FAMILY HISTORY: Denies any family history of early coronary artery disease or sudden cardiac . SOCIAL HISTORY: Denies alcohol, tobacco or drug use. ALLERGIES: MUSCLE CRAMPS WITH STATIN THERAPY AND OSTEOPOROSIS MEDICATIONS. REVIEW OF SYSTEMS: A 12-point review of system was performed and negative unless otherwise noted in the history of present illness. PHYSICAL EXAMINATION: VITAL SIGNS: Show temperature 97, pulse 57, blood pressure 160/77 mmHg. GENERAL: Alert and oriented x3, in no acute distress. HEENT: Shows pupils reactive to light and accommodation. Extraocular movements are intact. No elevation of jugular venous distention. No thyromegaly. No lymphadenopathy. No carotid bruits. LUNGS: Clear to auscultation bilaterally. CARDIOVASCULAR: Regular. No murmurs, rubs or gallops. ABDOMEN: Nontender, nondistended with good bowel sounds. No hepatosplenomegaly. EXTREMITIES: No clubbing, cyanosis or edema. Good peripheral pulses. NEUROLOGIC: Cranial nerves intact. Motor exam is grossly intact. LABORATORY DATA: WBC is 5.3, hemoglobin 11.1, platelet count is 170,000. INR is 1.2. Sodium 138, potassium 4.3, BUN is 19, creatinine is 1.0. Troponins negative x3. ASSESSMENT: 1. Chest pain. 2. Hypertension. 3. Hyperlipidemia. PLAN: The patient has somewhat suggestive symptoms now becoming more progressive over the course of the past 1 week. Troponins are negative, but the stress test shows moderate sized anterior wall defect. Risks, benefits and alternatives discussed with the patient, the patient is agreeable to proceed with cardiac catheterization. We are going to hold the Eliquis. I went to see if we can try from a radial approach; if not, we may have to delay 48 hours to let the Eliquis get out of her system. She is intolerant to statin therapy. I am going to titrate down her beta gisele given her relative bradycardia. MD TOO López/WINNIE , 02:25 PM , 02:51 PM
--- NOTE | 2017-07-06 16:03 | EKG ---
Date Performed: 07/06/2017 Time Performed: 03:11:07 PTAGE: 81 years EKG: Sinus rhythm WITH FIRST DEGREE AV BLOCK ABNORMAL ECG PREVIOUS TRACING : 07/06/2017 01.06 Since previous tracing, no significant change noted DOCTOR: Benji Crain Interpretating Date/Time 07/06/2017 16:01:43
--- NOTE | 2017-07-06 16:04 | EKG ---
Date Performed: 07/06/2017 Time Performed: 01:06:10 PTAGE: 81 years EKG: Sinus rhythm WITH FIRST DEGREE AV BLOCK MODERATE VOLTAGE CRITERIA FOR LVH, CONSIDER NORMAL VARIANT ABNORMAL ECG PREVIOUS TRACING : 07/05/2017 21.03 Since previous tracing, no significant change noted DOCTOR: Benji Crain Interpretating Date/Time 07/06/2017 16:02:16
--- NOTE | 2017-07-06 16:07 | TR ---
Date Performed: 07/06/2017 Time Performed: 09:43:34 DOCTOR: Benji Crain DRUG LIST: CLINICAL HISTORY: ANGINA REASON FOR TEST: Angina REASON FOR ENDING: OBSERVATION: CONCLUSION: Lexiscan stress test was performed under standard four minute protocol. Radionuclid e was injected one minute prior to ending the test. No electrocardiographic abormalities were present to suggest ischemia. Nuclear imaging and interpretation are pending. COMMENTS:
[2017-07-06] MEDS: METOPROLOL TARTRATE 25 MG TAB PO SCH (21:00)
[2017-07-07] VITALS (12 sets, daily range): BP systolic 144–199; BP diastolic 75–96; PULSE 54–74; RESP 16–20; TEMP 97.5–98.5; O2SAT 97–99
--- NOTE | 2017-07-07 00:21 | EKG ---
Date Performed: 07/05/2017 Time Performed: 21:03:45 PTAGE: 81 years EKG: Sinus rhythm WITH FIRST DEGREE AV BLOCK LEFT VENTRICULAR HYPERTROPHY AND ST-T CHANGE ABNORMAL ECG PREVIOUS TRACING : 04/20/2017 19.50 DOCTOR: Bob Bender Interpretating Date/Time 07/07/2017 00:10:57
[2017-07-07] MEDS ORDERED: ACETAMINOPHEN 325 MG TAB PO ONE (03:00)
[2017-07-07] MEDS: LEVOTHYROXINE SODIUM 50 MCG TAB PO SCH (06:15)
[2017-07-07] MEDS: METOPROLOL TARTRATE 25 MG TAB PO SCH ×2 (07:44→22:10)
[2017-07-07] MEDS: ASPIRIN 325 MG TAB PO SCH (07:44)
[2017-07-07] MEDS: PRAVASTATIN SOD 40 MG TAB PO SCH (07:44)
[2017-07-07] MEDS: LOSARTAN 50 MG TAB PO SCH ×2 (07:44→22:08)
--- NOTE | 2017-07-07 07:54 | PD.CARD.PN ---
Subjective Subjective Remarks Son and RN at bedside. The patient had a short episode of chest discomfort yesterday, states 8/10 in severity. Denies any shortness of breath. Agreeable for cardiac catheterization today, all questions answered (Sen Rivas) Objective Medications Current Medications Medications (Trade) Dose Ordered Sig/Pablo Route Start Time Stop Time Status Last Admin (NS Flush) 2 ml UNSCH PRN IVF 07/05/17 21:30 (NS Flush) 2 ml UNSCH PRN IV FLUSH 07/05/17 23:15 (Catapres) 0.1 mg Q4H PRN PO 07/06/17 07:45 (Synthroid) 50 mcg DAILY@0600 PO 07/06/17 08:21 07/07/17 06:15 (Cozaar) 50 mg BID PO 07/06/17 09:00 07/06/17 20:38 (Pravachol) 40 mg DAILY PO 07/06/17 09:00 (Razadyne) 4 mg BID PO 07/06/17 09:00 07/06/17 20:38 (Aspirin) 325 mg DAILY PO 07/07/17 09:00 (Pill Splitter) 1 ea UNSCH PRN OTHER 07/06/17 14:30 (Lopressor) 12.5 mg BID PO 07/06/17 21:00 Vital Signs / I&O Vital Signs Date Time Temp Pulse Resp B/P (MAP) Pulse Ox O2 Delivery O2 Flow Rate FiO2 07/07/17 04:45 60 07/07/17 02:59 58 147/75 (99) 07/07/17 00:00 60 07/06/17 23:48 59 175/82 (113) 07/06/17 23:19 98.3 64 16 194/87 (122) 98 07/06/17 20:42 57 17 172/77 (108) 100 07/06/17 20:00 54 07/06/17 15:12 97.8 53 16 186/78 (114) 98 07/06/17 15:00 49 07/06/17 11:46 97.5 57 20 160/77 (104) 100 07/06/17 11:15 50 Physical Exam GENERAL: Well-developed well-nourished. In no acute distress. NECK: No carotid bruits. No JVD. CARDIOVASCULAR: Regular rate and rhythm. No murmur appreciated. RESPIRATORY: No accessory muscle use. Clear to auscultation. Breath sounds equal bilaterally. MUSCULOSKELETAL: No clubbing or cyanosis. No edema. NEUROLOGICAL: Awake and alert. Normal speech. Imaging Last Impressions Myocardial Perfusion Scan Nuc Med 07/06/17 0000 Signed Impressions: Service Date/Time: Thursday, July 06, 2017 09:15 - CONCLUSION: 1. Moderate-sized stress-induced perfusion abnormality in the anterolateral wall. 2. Well-preserved ventricular wall motion and ejection fraction. RISK CATEGORY : Intermediate (1-3%% Annual Mortality Rate) Alejandro Goff MD Chest X-Ray 07/05/[id number] Signed Impressions: Service Date/Time: Wednesday, July 05, 2017 21:33 - CONCLUSION: No acute disease. Jayant Luis MD FACR (Sen Rivas) Assessment and Plan Assessment and Plan 81-year-old female with a past medical history of HTN, HLD, hypothyroidism who presented with chest pain. Patient was admitted to the chest pain center and underwent Lexiscan stress test which showed moderate reversible defect. Chest pain with positive stress test: Eliquis on hold. Cardiac catheterization today from radial approach, and if unable to do radial approach, may need to delay 48 hours due to Eliquis. Paroxysmal atrial fibrillation: Eliquis on hold as above. Continue metoprolol for rate control. Hypertension: Metoprolol decreased with bradycardia. Continue losartan. Uncontrolled, add HCTZ. (Sen Rivas) Assessment and Plan [facility] today (Thaddeus Carver MD) Sen Rivas Jul 07, 2017 07:54 Thaddeus Carver MD Jul 07, 2017 08:17
[2017-07-07] MEDS ORDERED: HEPARIN SODIUM - IV 10,000 UNITS/10 ML VIAL ONE (08:30)
[2017-07-07] MEDS ORDERED: HEPARIN-NS/PF FLUSH BAG 2,000 ML IV FLUSH ONE (08:30)
[2017-07-07] MEDS ORDERED: NITROGLYCERIN INJ 5 ML ONE (08:31)
--- NOTE | 2017-07-07 08:43 | HHI.PR ---
Subjective Remarks Pt had a reported episode of chest pain last night. Her HR has been in the 50's overnight Objective Vitals Vital Signs Date Time Temp Pulse Resp B/P (MAP) Pulse Ox O2 Delivery O2 Flow Rate FiO2 07/07/17 08:03 57 07/07/17 07:31 97.5 54 16 199/84 (122) 97 186/90 (122) 07/07/17 04:45 60 07/07/17 02:59 58 147/75 (99) 07/07/17 00:00 60 07/06/17 23:48 59 175/82 (113) 07/06/17 23:19 98.3 64 16 194/87 (122) 98 07/06/17 20:42 57 17 172/77 (108) 100 07/06/17 20:00 54 07/06/17 15:12 97.8 53 16 186/78 (114) 98 07/06/17 15:00 49 07/06/17 11:46 97.5 57 20 160/77 (104) 100 07/06/17 11:15 50 Result Diagram: 07/05/17223407/05/172123 Other Results Laboratory Tests Test 07/05/17 21:24 07/05/17 22:35 07/06/17 00:25 07/06/17 03:30 Blood Urea Nitrogen 19 MG/DL Creatinine 1.00 MG/DL Random Glucose 99 MG/DL Total Protein 7.6 GM/DL Albumin 3.5 GM/DL Calcium Level 9.2 MG/DL Alkaline Phosphatase 77 U/L Aspartate Amino Transf (AST/SGOT) 51 U/L Alanine Aminotransferase (ALT/SGPT) 28 U/L Total Bilirubin 0.3 MG/DL Sodium Level 138 MEQ/L Potassium Level 4.3 MEQ/L Chloride Level 105 MEQ/L Carbon Dioxide Level 24.9 MEQ/L Anion Gap 8 MEQ/L Estimat Glomerular Filtration Rate 53 ML/MIN Total Creatine Kinase 131 U/L 77 U/L 60 U/L Creatine Kinase MB 1.4 NG/ML Troponin I LESS THAN 0.02 NG/ML LESS THAN 0.02 NG/ML LESS THAN 0.02 NG/ML White Blood Count 5.3 TH/MM3 Red Blood Count 3.49 MIL/MM3 Hemoglobin 11.5 GM/DL Hematocrit 33.5 % Mean Corpuscular Volume 96.0 FL Mean Corpuscular Hemoglobin 32.9 PG Mean Corpuscular Hemoglobin Concent 34.3 % Red Cell Distribution Width 13.9 % Platelet Count 170 TH/MM3 Mean Platelet Volume 7.6 FL Neutrophils (%) (Auto) 49.5 % Lymphocytes (%) (Auto) 33.4 % Monocytes (%) (Auto) 10.5 % Eosinophils (%) (Auto) 6.1 % Basophils (%) (Auto) 0.5 % Neutrophils # (Auto) 2.6 TH/MM3 Lymphocytes # (Auto) 1.8 TH/MM3 Monocytes # (Auto) 0.6 TH/MM3 Eosinophils # (Auto) 0.3 TH/MM3 Basophils # (Auto) 0.0 TH/MM3 CBC Comment DIFF FINAL Differential Comment Prothrombin Time 11.8 SEC Prothromb Time International Ratio 1.2 RATIO Activated Partial Thromboplast Time 27.3 SEC Imaging Last Impressions Myocardial Perfusion Scan Nuc Med 07/06/17 0000 Signed Impressions: Service Date/Time: Thursday, July 06, 2017 09:15 - CONCLUSION: 1. Moderate-sized stress-induced perfusion abnormality in the anterolateral wall. 2. Well-preserved ventricular wall motion and ejection fraction. RISK CATEGORY : Intermediate (1-3%% Annual Mortality Rate) Alejandro Goff MD Chest X-Ray 07/05/172115 Signed Impressions: Service Date/Time: Wednesday, July 05, 2017 21:33 - CONCLUSION: No acute disease. Jayant Luis MD FACR Objective Remarks General: NAD, Awake and alert Chest: CTA Cardiac: Regular, louis Abd: +BS, soft ND/NT Ext: No edema A/P Problem List: (1) Chest pain ICD Codes: R07.9 - Chest pain, unspecified Status: Acute Plan: - Pt is an 81 y/o female with HTN, HLD, hypothyroidism who presented to the ED with complaints of chest pain. - Patient was admitted to the chest pain center and CE were negative x 3. - Pt underwent Lexiscan stress test which showed moderate reversible defect. - She was transferred to [facility] Hospitalist service with [facility]. - Pts Eliquis was put on hold. - Pt is planned for Cardiac catheterization today with Dr. Carver (2) Uncontrolled hypertension ICD Codes: I10 - Uncontrolled hypertension Status: Acute Plan: - Pt is on Cozaar 50mg po BID, and Metoprolol 50mg BID at home. - The metoprolol has been decreased due to bradycardia - HCTZ 25mg po daily was added on 07/07 - Monitor - Clonidine PRN (3) Atrial fibrillation ICD Codes: I48.91 - Atrial fibrillation Status: Chronic Plan: - Eliquis on hold for [facility]. - Metoprolol decreased to 12.5mg po BID due to bradycardia - Cont. Telemetry monitoring. (4) Hypothyroidism ICD Codes: E03.9 - Hypothyroidism Status: Chronic Plan: - Home med continued Assessment and Plan Patient examined. Assessment and plan formulated with Alicia Walters PA-C. I agree with the above. Pt underwent C with Dr. Carver (07/08) --> severe 2V CAD - Pt's son declines surgical repair - Cardiology to attempt higher risk repair of severe 2V ds 07/10/17. - Pt's son requests anticoagulation d/t h/o CVA - start heparin. Problem Qualifiers (1) Atrial fibrillation: Qualified Codes: I48.0 - Paroxysmal atrial fibrillation Alicia Walters Jul 07, 2017 08:43 Rufino Barron DO Jul 08, 2017 02:16
[2017-07-07] MEDS ORDERED: MIDAZOLAM HCL 2 MG/2 ML VIAL ONE (08:54)
--- NOTE | 2017-07-07 09:43 | CATHPROC ---
[place] HIS Report Study Information Study Number Admission Scheduled Start Study Start [id number] Jul 05 2017 11:12PM 07/07/2017 Jul 07 2017 8:23AM [place] Service Cardiac Catheterization Admit Source Facility Department Emergency department [facility] - [facility] Physician and Clinical Staff Initial Thaddeus Bardales Care Giver Alicia De La Rosa,RN Care Giver Rolando Heath RN Recorder Rosalba Diop RCIS TECH2 Scrub Carlton Rodrigez RCIS(BS) Procedures Performed Procedure Location (Site) Vessel Name Coronary Angiograms LCA Left Coronary Coronary Angiograms RCA Right Coronary Equipment Time Pension Fund Manager Description Size Mfg Part Number Used/Scraped TRANSDUCER, TRUWAVE [id number] 08:40 [employer] * Used W/STOCKCOCK *[id number] WIRE, CHOICE PT 300CM PT EX. [id number] 09:03 Meditech 300CM Used SUPP *[id number] 08:40 [employer] PACK, CCL CUSTOM * Used *[id number] 08:40 Atigeo SUPPORT, ARTERIAL ADULT 71591 *[id number] Used [id number] 08:40 [employer] PACER PEN, SKIN DUAL W/ RULER * Used *[id number] 09:10 MEDTRON[employer] JL 3.5 DXTERITY CATHETER FR 5 Used *[id number] 08:52 [employer] JR 5.0 DXTERITY CATHETER fr 5 [id number] Used BAND, RADIAL COMPRESSION TR [id number] 09:30 [employer] 24CM Used SHORT 24 *[id number] SHEATH, FR6 RADIAL PRELUDE 08:40 [employer] FR 6 [id number] Used EASE 11CM [id number] 08:40 [employer] WIRE, EXCHANGE 260CM 3MMJ 260CM Used *[id number] 08:40 [employer]COMED OMNIPAQUE, 350 MG, 150ML 150ML [id number] Used [id number] 08:40 [employer],WARM AIR CCL * Used *[id number] Equipment Model, Serial, Lot Number and Expiration Data Description Model Number Serial Number Lot Number Expiration Date JR 5.0 DXTERITY CATHETER [id number] 10-17-2019 WIRE, CHOICE PT 300CM PT EX. [id number] 12-19-2018 SUPP History: Current Medications Medication Dosage/Unit Route Frequency Last Date/Time Taken LOPRESSOR ELIQUIS Synthroid COZAAR History: Allergies Allergy Reaction codeine ANAPHYLAXIS methocarbamol DYSPNEA, CHOKING chlorzoxazone DYSPNEA, CHOKING carisoprodol DYSPNEA, CHOKING metaxalone DYSPNEA, CHOKING baclofen DYSPNEA, CHOKING gemfibrozil CAUSES PALPITATIONS lovastatin MYALGIAS AND DIZZINESS furosemide GENERIC LASIX - MUSCLE CRAMPS indomethacin CEKEBREX VIOXX - DYSPEPSIA ibuprofen CEKEBREX VIOXX - DYSPEPSIA naproxen CEKEBREX VIOXX - DYSPEPSIA flurbiprofen CEKEBREX VIOXX - DYSPEPSIA ketoprofen CEKEBREX VIOXX - DYSPEPSIA omeprazole DIARRHEA etodolac CEKEBREX VIOXX - DYSPEPSIA pravastatin LIPITOR ZOCOR MEVACOR-MYALGIAS AND DIZZINESS clarithromycin SOB simvastatin MYLAGIAS AND DIZZINESS amlodipine LIPITOR ZOCOR MEVACOR-MYALGIAS AND DIZZINESS oxaprozin CEKEBREX VIOXX - DYSPEPSIA diclofenac CEKEBREX VIOXX - DYSPEPSIA gabapentin MUSCLE CRAMPS lansoprazole Diarrhea cyclobenzaprine DYSPNEA, CHOKING ketorolac CEKEBREX VIOXX - DYSPEPSIA tizanidine DYSPNEA, CHOKING atorvastatin LIPITOR ZOCOR MEVACOR-MYALGIAS AND DIZZINESS sodium phosphate N/V celecoxib Dyspepsia rofecoxib MUSCLE CRAMPING ALLERGY SHOTS ASTHMA CHOLESTEROL MEDICATIONS MUSCLE CRAMPS OSTEOPOROSIS MEDICATIONS JAW EROSION History: Risk Factors Family History of Hypertension Dyslipidemia Previous NE Premature CAD Yes Yes No No Prior Valve Prior PCI Prior CABG Surgery No No No Cerebrovascular Peripheral Artery Chronic Lung On Dialysis Diabetes Disease Disease Disease No No No No No History: Symptoms/Diagnosis Selection Items Chest pain History: Stress Tests Stress or Imaging Studies Performed Yes Standard Exercise Stress Test No Stress Echo No Stress Test SPECT Stress Test SPECT Result Stress Test SPECT Ischemia Risk/Extent Yes Positive Intermediate Stress Test CMR No Cardiac CTA Coronary Calcium Score No No History: Arrhythmias Selection Items Atrial fibrillation History: Other Current Smoker No Labs Hgb (g/dl) Hct (%) WBC (l/cumm) Platelets (thousands) 11.60-17.00 35.00-51.00 4.00-11.00 150.00-450.00 11.5 33.5 5.3 170 Glucose (mg/dl) BUN (mg/dl) Creatinine (mg/dl) BUN:Creatinine (1:x) 74.00-106.00 7.00-18.00 0.50-1.30 10.00-20.00 99 19 1.0 19 Na (meq/l) K (meq/l) Cl (meq/l) 136.00-145.00 3.50-5.10 98.00-107.00 138 4.3 105 PT (sec) INR (PTT:PT) 9.80-11.60 0.90-1.10 11.8 1.2 Troponin I (ng/ml) CPK (u/l) CPK-MB (ng/ML) 0.02-0.05 26.00-308.00 0.50-3.60 0.02 60 1.4 Medication Medication Total Dose (Bolus/Oral) Medication Total Dosage/Unit 1% XYLOCAINE 20 mL HEPARIN 3000 units NTG (IC) 200 mcg VERSED 1 mg Medications (Bolus/Oral) Medication Time Given Dosage/Unit Administered By Reason VERSED 07/07/2017 8:55:49 AM 1 mg Alicia De La Rosa 1 mg VERSED given in lab by Alciia De La Rosa RN in Left Wrist via Peripheral IV. Ordered by [facility] Carver. 1% XYLOCAINE 07/07/2017 8:58:49 AM 20 mL Thaddeus Carver 20 mL 1% XYLOCAINE given in lab by Thaddeus Carver in Right Radial via Subcutaneous. Ordered by Thaddeus Carver. NTG (IC) 07/07/2017 9:00:25 AM 200 mcg Thaddeus Carver 200 mcg NTG (IC) given in lab by Thaddeus Carver in Right Radial via Intra-arterial. Ordered by Thaddeus Carver. HEPARIN 07/07/2017 9:01:05 AM 3000 units Alicia De La Rosa 3000 units HEPARIN given in lab by Alicia De La Rosa RN in Right Wrist via Peripheral IV. Ordered by Thaddeus Angulo. Medication (Drip) Medication Time Given Dosage/Unit Concentration/Unit Diluent (ml) Solutio n IV Solutions 07/07/2017 8:30:49 AM 0 mL (IV) 500 NaCl .9 IV Solutions given in lab by Alicia De La Rosa, ANA MARIA in Left Wrist via Peripheral IV. Pump/Drip Flow = 20 ml/hr using NaCl .9. Ordered by Thaddeus Carver. Initial Case Assessment Cardiovascular HR Rhythm NIBP Chest Pain 53 sb 201/91 0 Circulatory - Right Pulses Dorsalis Pedis Femoral Radial 2 1 1 Scale (0,1,2,3,4,d) Scale (0,1,2,3,4,d) Neurological State Oriented to time-place- Alert Moves all extremities person Respiration - General Respiration Rate SpO2 (%) (B/min) 8 99 Final Case Assessment Cardiovascular HR Rhythm NIBP Chest Pain 55 sb 180/85 0 Circulatory - Right Pulses Dorsalis Pedis Femoral Radial 2 1 1 Scale (0,1,2,3,4,d) Scale (0,1,2,3,4,d) Neurological State Oriented to time-place- Alert Moves all extremities person Respiration - General Respiration Rate SpO2 (%) (B/min) 13 98 Chronological Log Time Study Chronological Log 8:29:16 Patient arrived via Bed. 8:29:17 Patient Name, D.O.B, / Armband Verified By R.N. 8:29:20 Consent signed by the physician and the patient and verified by the [facility] staff. 8:29:23 Allens test performed on the right radial and ulnar artery. 8:29:32 Patient has been NPO for More than 6Hrs. 8:29:36 Skin Breakdown- none per patient 8:30:13 Patient Warmer Placed on the Table. 8:30:35 A # 20 IV was noted in the Wrist (left). Grade = patent IV Solutions given in lab by Alicia De La Rosa RN in Left Wrist via Peripheral IV. Pump/Drip Flow = 20 ml/hr using NaCl 8:30:49 .9. Ordered by Thaddeus Carver. 8:31:20 History and physical on the chart or being dictated. 8:38:38 Reference ECG taken Vitals capture started with the following parameters, Patient=Adult, Interval=5 min, Initial Pre yddqy=019 mmHg, 8:39:06 Deflation Rate=5 mmHg, Cuff placed on Right Arm 8:40:26 HR=55 bpm, KSUO=170/91 mmhg, SpO2=99.0 %, Resp=11 B/min, David=10 Assessment: Initial Case, HR=53 BPM, Rhythm=sb, QAAR=820/91 mmhg, Chest Pain=0 Right Pulses: Henry Ped=2, Femoral=1, Radial=1 8:40:45 Neurological: State=Alert, Ox3, RUIZ Respiration: Resp=8 B/min, SpO2=99 % 8:44:01 Right groin and right radial prepped with 2% chlorhexidine, and draped after a 3 min. waitin g time. 8:44:22 MD paged 8:45:29 MD responded 8:45:35 HR=54 bpm, AEBC=770/86 mmhg, SpO2=98.0 %, Resp=12 B/min 8:48:50 Pressure channel 1 zeroed. 8:49:57 HR=52 bpm, ZNSP=681/87 mmhg, SpO2=92.0 %, Resp=10 B/min 8:52:46 MD arrived. 8:55:43 HR=52 bpm, APUF=706/80 mmhg, SpO2=96.0 %, Resp=7 B/min 8:55:49 1 mg VERSED given in lab by Alicia De La Rosa, ANA MARIA in Left Wrist via Peripheral IV. Ordered by Thaddeus Carver. Time Out. Correct patient, correct procedure, correct physician, power injector not loaded with contrast with surgical 8:58:28 team present. Time Out Concurred by MD and individual staff in procedure. 8:58:44 Case Start 8:58:49 20 mL 1% XYLOCAINE given in lab by Thaddeus Carver in Right Radial via Subcutaneous. Ordered by Thaddeus Carver. 8:59:59 HR=55 bpm, HJLY=769/84 mmhg, SpO2=97.0 %, Resp=17 B/min 9:00:00 Access site was Radial Artery. right A SHEATH, FR6 RADIAL PRELUDE EASE 11CM FR 6 was advanced into the Radial (right) using the Shad romero 9:00:10 technique. 9:00:25 200 mcg NTG (IC) given in lab by Thaddeus Carver in Right Radial via Intra-arterial. Ordered by Thaddeus Carver. 9:00:57 In the Radial (right) the SHEATH, FR6 RADIAL PRELUDE EASE 11CM FR [address] by Thaddeus Carver. 9:01:05 3000 units HEPARIN given in lab by Alicia De La Rosa, ANA MARIA in Right Wrist via Peripheral IV. Ord ered by Thaddeus Carver. A JR 5.0 DXTERITY CATHETER fr 5 was advanced over a wire. OMNIPAQUE, 350 MG, 150ML 150ML was use d for 9:01:44 injections. 9:04:56 HR=54 bpm, IHCD=113/78 mmhg, SpO2=96.0 %, Resp=15 B/min 9:05:36 The previous wire was exchanged for a WIRE, CHOICE PT 300CM PT EX. SUPP 300CM. Recorded Pressure: Ao, HR=56, Condition=Condition 1 9:06:05 (Aorta) Ao 140/65/96 Recorded Pressure: LV, HR=58, Condition=Condition 1 9:06:22 (Left Ventricle) LV 137/0/6 Recorded Pressure: LV, Ao, HR=57, Condition=Condition 1 9:06:27 (Left Ventricle) LV 137/0/6, (Aorta) Ao 151/72/103 9:07:06 The RCA was injected and visualized at various angles. OMNIPAQUE, 350 MG, 150ML 150ML used. After removing the current catheter a JL 3.5 DXTERITY CATHETER FR 5 was advanced over a WIRE, EX CHANGE 260CM 9:09:25 3MMJ 260CM. 9:09:47 HR=57 bpm, APQJ=266/77 mmhg, SpO2=95.0 %, Resp=15 B/min 9:11:02 The LCA was injected and visualized at various angles. OMNIPAQUE, 350 MG, 150ML 150ML used. 9:15:29 HR=59 bpm, JGHD=026/80 mmhg, SpO2=96.0 %, Resp=19 B/min 9:16:18 Catheter was removed 9:20:41 HR=57 bpm, HBGG=481/83 mmhg, SpO2=94.0 %, Resp=7 B/min 9:24:57 HR=55 bpm, ULLT=040/76 mmhg, SpO2=99.0 %, Resp=10 B/min 9:30:14 Case End 9:30:41 HR=55 bpm, MALD=944/84 mmhg, SpO2=96.0 %, Resp=13 B/min Radial Compression Device Used. 15 mLs of air placed in BAND, RADIAL COMPRESSION TR SHORT 24 2 4CM. Affected 9:30:42 hand 98 % O2 saturation. 9:35:03 LTVG=541/85 mmhg, SpO2=98 % 9:35:23 Vitals capture stopped. Assessment: Final Case, HR=55 BPM, Rhythm=sb, NBEG=374/85 mmhg, Chest Pain=0 Right Pulses: Henry Ped=2, Femoral=1, Radial=1 9:35:38 Neurological: State=Alert, Ox3, RUIZ Respiration: Resp=13 B/min, SpO2=98 % 9:37:21 Patient moved to bed 9:38:39 Patient transported to DOCU End Study - Contrast Media Used In Study Contrast Total Opened (mL) Total Used (mL) Total Wasted (mL) Omnipaque 40 40 0 End Study - Maximum Contrast Load Max Contrast Load (mL) 400.0 End Study - Radiation Exposure Fluoro Time (minutes) 3.0 End Study - Sheaths Sheaths Pulled By Sheath Hold Time (min) Carlton Rodrigez End Study - Patient Disposition Complications Transferred To Interventional Outcome No Telemetry Bed No attempt made
[2017-07-07] MEDS ORDERED: MISC INFORMATION XX ONE (09:45)
--- NOTE | 2017-07-07 10:06 | MA ---
cc: Thaddeus Carver MD DATE: 07/07/2017 DATE OF PROCEDURE: 07/07/2017. INDICATION: Unstable angina. PROCEDURES PERFORMED: 1. Fluoroscopy with interpretation. 2. Left heart catheterization. 3. Coronary angiography. METHOD: Risks, benefits and alternatives were discussed with the patient. The patient understood and consented to the procedure. The patient was brought to the catheterization lab and placed on the catheterization table. The right wrist was prepped and draped in a sterile fashion. The right wrist was anesthetized with 2% lidocaine. The right radial artery was cannulated. A 6-Japanese 7 cm sheath was placed without difficulty. INTRAVENTRICULAR HEMODYNAMICS: A 5-Japanese JR5 catheter was advanced across the aortic valve without difficulty. Intraventricular hemodynamic pressure measured 137/6 mmHg. CORONARY ANGIOGRAPHY: 1. Left main coronary has 30% ostial stenosis. Moderate calcium present. 2. Left anterior descending coronary artery has a 90% calcific stenosis in the mid segment right at the bifurcation of a moderate-sized diagonal branch. The subbranch of the diagonal has a 90% stenosis and the origin of the diagonal has a 90% ostial stenosis. The remainder of the vessel has some tortuosity, but only minor luminal irregularities and wraps around the inferoapex. 3. Left circumflex gives rise to two obtuse marginal branches, both of which have mild luminal irregularities. 4. Right coronary is a moderate-sized caliber vessel. There is an ostial 80% calcific stenosis, appears to be about a 50%- 60% distal stenosis at the bifurcation of posterior descending and posterolateral branches. CONCLUSIONS: 1. Severe 2-vessel [place] coronary artery disease. 2. Normal left-sided filling pressure. PLAN: The patient has a rather complicated calcific coronary disease involving the bifurcation of a moderate-size diagonal branch. Although the patient has mild baseline dementia, I think we should stop at this point and consider surgical consultation. I did break scrub and talk with the son, who would like to hold off right now making any further decisions of medical therapy versus "higher risk" percutaneous attempted intervention versus coronary bypass surgery. We will consult cardiothoracic surgeon for their opinion and make a decision moving forward. Thaddeus Carver MD TOO/TL , 09:36 AM , 10:05 AM [email or web address]
[2017-07-07] MEDS: HYDROCHLOROTHIAZIDE 25 MG TAB PO SCH (12:26)
[2017-07-07] MEDS: GALANTAMINE HYDROBROMIDE 4 MG TAB PO SCH ×2 (13:25→22:09)
[2017-07-07] MEDS ORDERED: MAGNESIUM HYDROXIDE SUSP 30 ML CUP PO PRN (17:45)
[2017-07-07] MEDS: HEPARIN-D5W 25,000 U/250 ML 250 ML IV PRN (19:07)
[2017-07-07 19:18] LABS: HEMATOCRIT 36.7 % (35.0-46.0); HEMOGLOBIN 12.4 GM/DL (11.6-15.3); MEAN CELL VOLUME 96.6 FL (80.0-100.0); MEAN CORPUSCULAR HEMOGLOBIN 32.7 PG (27.0-34.0); MEAN CORPUSCULAR HGB CONC 33.8 % (32.0-36.0); MEAN PLATELET VOLUME 7.8 FL (7.0-11.0); PLATELET COUNT 186 TH/MM3 (150-450); RED CELL DISTRIBUTION WIDTH 13.7 % (11.6-17.2); WHITE BLOOD COUNT 5.8 TH/MM3 (4.0-11.0)
[2017-07-07 19:24] LABS: INTERNATIONAL NORMALIZED RATIO 1.1 RATIO; PROTHROMBIN TIME - PATIENT 10.8 SEC (9.8-11.6)
[2017-07-07] MEDS: cloNIDine HCL 0.1 MG TAB PO PRN (22:08)
[2017-07-07] MEDS: DOCUSATE SODIUM 100 MG CAP PO SCH (22:10)
[2017-07-08] VITALS (26 sets, daily range): BP systolic 136–177; BP diastolic 64–80; PULSE 52–74; RESP 17–20; TEMP 97.7–98.7; O2SAT 98–100
[2017-07-08] MEDS: LEVOTHYROXINE SODIUM 50 MCG TAB PO SCH (05:24)
[2017-07-08] MEDS: GALANTAMINE HYDROBROMIDE 4 MG TAB PO SCH ×2 (07:27→21:57)
[2017-07-08] MEDS: DOCUSATE SODIUM 100 MG CAP PO SCH ×2 (07:27→21:00)
[2017-07-08] MEDS: HYDROCHLOROTHIAZIDE 25 MG TAB PO SCH (07:27)
[2017-07-08] MEDS: PRAVASTATIN SOD 40 MG TAB PO SCH (07:27)
[2017-07-08] MEDS: ASPIRIN 325 MG TAB PO SCH (07:28)
[2017-07-08] MEDS: LOSARTAN 50 MG TAB PO SCH ×2 (07:28→21:57)
[2017-07-08 07:46] LABS: AUTOMATED NEUTROPHIL # 3.3 TH/MM3 (1.8-7.7); BASOPHIL % 0.3 % (0.0-2.0); EOSINOPHIL # 0.4 TH/MM3 (0-0.4); HEMATOCRIT 34.7 % (35.0-46.0); HEMOGLOBIN 11.9 GM/DL (11.6-15.3); LYMPH % 33.4 % (9.0-44.0); LYMPHOCYTE # 2.1 TH/MM3 (1.0-4.8); MEAN CELL VOLUME 96.3 FL (80.0-100.0); MEAN CORPUSCULAR HGB CONC 34.3 % (32.0-36.0); MEAN PLATELET VOLUME 7.8 FL (7.0-11.0); MONO % 8.2 % (0.0-8.0); MONOCYTE # 0.5 TH/MM3 (0-0.9); NEUT % 52.1 % (16.0-70.0); PLATELET COUNT 166 TH/MM3 (150-450); RED CELL DISTRIBUTION WIDTH 13.7 % (11.6-17.2); WHITE BLOOD COUNT 6.3 TH/MM3 (4.0-11.0)
--- NOTE | 2017-07-08 08:09 | PD.CARD.PN ---
Subjective Subjective Remarks RN at bedside. The patient denies any further chest discomfort overnight. She reports that she has had a dry cough and some chest rattling. Denies any shortness of breath. (Sen Rivas) Objective Medications Current Medications Medications (Trade) Dose Ordered Sig/Pablo Route Start Time Stop Time Status Last Admin (NS Flush) 2 ml UNSCH PRN IVF 07/05/17 21:30 (NS Flush) 2 ml UNSCH PRN IV FLUSH 07/05/17 23:15 (Catapres) 0.1 mg Q4H PRN PO 07/06/17 07:45 07/07/17 22:08 (Synthroid) 50 mcg DAILY@0600 PO 07/06/17 08:21 07/08/17 05:24 (Cozaar) 50 mg BID PO 07/06/17 09:00 07/08/17 07:28 (Pravachol) 40 mg DAILY PO 07/06/17 09:00 07/08/17 07:27 (Razadyne) 4 mg BID PO 07/06/17 09:00 07/08/17 07:27 (Aspirin) 325 mg DAILY PO 07/07/17 09:00 07/08/17 07:28 (Pill Splitter) 1 ea UNSCH PRN OTHER 07/06/17 14:30 (Lopressor) 12.5 mg BID PO 07/06/17 21:00 07/07/17 22:10 (Hydrodiuril) 25 mg DAILY PO 07/07/17 09:00 07/08/17 07:27 (Colace) 100 mg BID PO 07/07/17 21:00 07/08/17 07:27 (Milk Of Magnesia Liq) 30 ml DAILY PRN PO 07/07/17 17:45 Heparin Sodium/ Dextrose 250 ml @ 10 mls/hr TITRATE PRN IV 07/07/17 17:45 07/07/17 19:07 Vital Signs / I&O Vital Signs Date Time Temp Pulse Resp B/P (MAP) Pulse Ox O2 Delivery O2 Flow Rate FiO2 07/08/17 07:14 97.7 58 18 177/80 (112) 100 Manual Cuff/Auscultation 07/08/17 06:00 58 07/08/17 05:00 52 07/08/17 04:00 55 07/08/17 03:10 98.1 59 20 156/78 (104) 98 07/08/17 03:00 74 07/08/17 02:00 58 07/08/17 01:00 56 07/08/17 00:00 58 07/07/17 23:10 98.0 65 20 144/89 (107) 97 07/07/17 20:00 69 07/07/17 19:10 98.5 74 18 177/96 (123) 97 07/07/17 18:43 65 07/07/17 17:35 60 07/07/17 16:15 98.0 64 18 149/78 (101) 99 07/07/17 16:07 62 07/07/17 09:43 95 Room Air I/O 07/07/17 07/07/17 07/07/17 07/08/17 07/08/17 07/08/17 07:00 15:00 23:00 07:00 15:00 23:00 Intake Total 240 ml Output Total 200 ml Balance 40 ml Intake Oral 240 ml Output Urine Total 200 ml # Voids 2 Physical Exam GENERAL: Well-developed well-nourished. In no acute distress. NECK: No carotid bruits. No JVD. CARDIOVASCULAR: Regular rate and rhythm. No murmur appreciated. RESPIRATORY: No accessory muscle use. Clear to auscultation. Breath sounds equal bilaterally. MUSCULOSKELETAL: No clubbing or cyanosis. No edema. NEUROLOGICAL: Awake and alert. Normal speech. SKIN: Right radial access site with minimal ecchymosis. Laboratory Laboratory Tests Test 07/07/17 18:04 07/08/17 00:18 07/08/17 06:28 White Blood Count 5.8 TH/MM3 6.3 TH/MM3 Red Blood Count 3.80 MIL/MM3 3.60 MIL/MM3 Hemoglobin 12.4 GM/DL 11.9 GM/DL Hematocrit 36.7 % 34.7 % Mean Corpuscular Volume 96.6 FL 96.3 FL Mean Corpuscular Hemoglobin 32.7 PG 33.0 PG Mean Corpuscular Hemoglobin Concent 33.8 % 34.3 % Red Cell Distribution Width 13.7 % 13.7 % Platelet Count 186 TH/MM3 166 TH/MM3 Mean Platelet Volume 7.8 FL 7.8 FL Prothrombin Time 10.8 SEC Prothromb Time International Ratio 1.1 RATIO Activated Partial Thromboplast Time 26.4 SEC 55.4 SEC 91.0 SEC Neutrophils (%) (Auto) 52.1 % Lymphocytes (%) (Auto) 33.4 % Monocytes (%) (Auto) 8.2 % Eosinophils (%) (Auto) 6.0 % Basophils (%) (Auto) 0.3 % Neutrophils # (Auto) 3.3 TH/MM3 Lymphocytes # (Auto) 2.1 TH/MM3 Monocytes # (Auto) 0.5 TH/MM3 Eosinophils # (Auto) 0.4 TH/MM3 Basophils # (Auto) 0.0 TH/MM3 CBC Comment DIFF FINAL Differential Comment Imaging Last Impressions Myocardial Perfusion Scan Nuc Med 07/06/17 0000 Signed Impressions: Service Date/Time: Thursday, July 06, 2017 09:15 - CONCLUSION: 1. Moderate-sized stress-induced perfusion abnormality in the anterolateral wall. 2. Well-preserved ventricular wall motion and ejection fraction. RISK CATEGORY : Intermediate (1-3%% Annual Mortality Rate) Alejandro Goff MD Chest X-Ray 07/05/172115 Signed Impressions: Service Date/Time: Wednesday, July 05, 2017 21:33 - CONCLUSION: No acute disease. Jayant Luis MD FACR (Sen Rivas) Assessment and Plan Assessment and Plan 81-year-old female with a past medical history of HTN, HLD, hypothyroidism who presented with chest pain. Patient was admitted to the chest pain center and underwent Lexiscan stress test which showed moderate reversible defect. CAD: Cardiac catheterization 07/07 showed severe 2 vessel [place] CAD. We will need to discuss with patient and family regarding medical therapy vs higher risk PCI vs CABG. On heparin gtt. Paroxysmal atrial fibrillation: Eliquis on hold. Continue metoprolol for rate control. Hypertension: Metoprolol decreased with bradycardia. Continue losartan. Uncontrolled, added HCTZ. (Sen Rivas) Assessment and Plan NPO p MN attempt PCI tomorrow (Thaddeus Carver MD) Sen Rivas Jul 08, 2017 08:09 Thaddeus Carver MD Jul 08, 2017 15:14
[2017-07-08 08:10] LABS: BICARBONATE 26.4 MEQ/L (21.0-32.0); CALCIUM 8.8 MG/DL (8.5-10.1); CREATININE 0.84 MG/DL (0.50-1.00)
[2017-07-08] MEDS: cloNIDine HCL 0.1 MG TAB PO PRN (08:26)
[2017-07-08] MEDS: METOPROLOL TARTRATE 25 MG TAB PO SCH ×2 (09:45→21:57)
--- NOTE | 2017-07-08 17:18 | HHI.PR ---
Subjective Remarks No new complaints. Objective Vitals Vital Signs Date Time Temp Pulse Resp B/P (MAP) Pulse Ox O2 Delivery O2 Flow Rate FiO2 07/08/17 12:00 98.7 58 17 136/64 (88) 99 07/08/17 10:00 60 07/08/17 09:00 60 07/08/17 08:00 58 07/08/17 07:14 97.7 58 18 177/80 (112) 100 Manual Cuff/Auscultation 07/08/17 07:00 53 07/08/17 06:00 58 07/08/17 05:00 52 07/08/17 04:00 55 07/08/17 03:10 98.1 59 20 156/78 (104) 98 07/08/17 03:00 74 07/08/17 02:00 58 07/08/17 01:00 56 07/08/17 00:00 58 07/07/17 23:10 98.0 65 20 144/89 (107) 97 07/07/17 20:00 69 07/07/17 19:10 98.5 74 18 177/96 (123) 97 07/07/17 18:43 65 07/07/17 17:35 60 Result Diagram: 07/08/17 0628 07/08/17 0628 Imaging Last Impressions Myocardial Perfusion Scan Nuc Med 07/06/17 0000 Signed Impressions: Service Date/Time: Thursday, July 06, 2017 09:15 - CONCLUSION: 1. Moderate-sized stress-induced perfusion abnormality in the anterolateral wall. 2. Well-preserved ventricular wall motion and ejection fraction. RISK CATEGORY : Intermediate (1-3%% Annual Mortality Rate) Alejandro Goff MD Chest X-Ray 07/05/172115 Signed Impressions: Service Date/Time: Wednesday, July 05, 2017 21:33 - CONCLUSION: No acute disease. Jayant Luis MD FACR Objective Remarks General: NAD, Awake and alert Chest: CTA Cardiac: Regular, louis Abd: +BS, soft ND/NT Ext: No edema A/P Problem List: (1) Chest pain ICD Codes: R07.9 - Chest pain, unspecified Status: Acute Plan: - Pt is an 81 y/o female with HTN, HLD, hypothyroidism who presented to the ED with complaints of chest pain. - Patient was admitted to the chest pain center and CE were negative x 3. - Pt underwent Lexiscan stress test which showed moderate reversible defect. - She was transferred to [facility] Hospitalist service with Cardiology consulting. - Pt underwent [facility] with Dr. Carver (07/08) --> severe 2V CAD - Pt's son declines surgical repair - Cardiology to attempt higher risk repair of severe 2V ds 07/10/17. - Pt's son requests anticoagulation d/t h/o CVA - heparin. - supportive care (2) Uncontrolled hypertension ICD Codes: I10 - Uncontrolled hypertension Status: Acute Plan: - Pt is on Cozaar 50mg po BID, and Metoprolol 50mg BID at home. - The metoprolol has been decreased due to bradycardia - HCTZ 25mg po daily was added on 07/07 - Monitor - Clonidine PRN (3) Atrial fibrillation ICD Codes: I48.91 - Atrial fibrillation Status: Chronic Plan: - Eliquis on hold for [facility]. - Metoprolol decreased to 12.5mg po BID due to bradycardia - Cont. Telemetry monitoring. (4) Hypothyroidism ICD Codes: E03.9 - Hypothyroidism Status: Chronic Plan: - Home med continued Assessment and Plan Problem Qualifiers (1) Atrial fibrillation: Qualified Codes: I48.0 - Paroxysmal atrial fibrillation Rufino Barron DO Jul 08, 2017 17:18
[2017-07-08] MEDS ORDERED: ACETAMINOPHEN 500 MG CPLT PO PRN (18:30)
[2017-07-09] VITALS (26 sets, daily range): BP systolic 132–153; BP diastolic 58–83; PULSE 48–68; RESP 14–16; TEMP 97.5–98; O2SAT 96–100
[2017-07-09] MEDS: LEVOTHYROXINE SODIUM 50 MCG TAB PO SCH (05:37)
[2017-07-09] MEDS: HEPARIN-D5W 25,000 U/250 ML 250 ML IV PRN (05:40)
--- NOTE | 2017-07-09 08:24 | PD.CARD.PN ---
Subjective Subjective Remarks felt well overnight, no chest pain, sob or palpitations. PCI planned for this morning Objective Medications Current Medications Medications (Trade) Dose Ordered Sig/Pablo Route Start Time Stop Time Status Last Admin (NS Flush) 2 ml UNSCH PRN IVF 07/05/17 21:30 (NS Flush) 2 ml UNSCH PRN IV FLUSH 07/05/17 23:15 (Catapres) 0.1 mg Q4H PRN PO 07/06/17 07:45 07/08/17 08:26 (Synthroid) 50 mcg DAILY@0600 PO 07/06/17 08:21 07/09/17 05:37 (Cozaar) 50 mg BID PO 07/06/17 09:00 07/08/17 21:57 (Pravachol) 40 mg DAILY PO 07/06/17 09:00 07/08/17 07:27 (Razadyne) 4 mg BID PO 07/06/17 09:00 07/08/17 21:57 (Aspirin) 325 mg DAILY PO 07/07/17 09:00 07/08/17 07:28 (Pill Splitter) 1 ea UNSCH PRN OTHER 07/06/17 14:30 (Lopressor) 12.5 mg BID PO 07/06/17 21:00 07/08/17 21:57 (Hydrodiuril) 25 mg DAILY PO 07/07/17 09:00 07/08/17 07:27 (Colace) 100 mg BID PO 07/07/17 21:00 07/08/17 07:27 (Milk Of Magnesia Liq) 30 ml DAILY PRN PO 07/07/17 17:45 07/08/17 15:19 Heparin Sodium/ Dextrose 250 ml @ 10 mls/hr TITRATE PRN IV 07/07/17 17:45 07/09/17 05:40 (Tylenol) 500 mg Q6H PRN PO 07/08/17 18:30 Vital Signs / I&O Vital Signs Date Time Temp Pulse Resp B/P (MAP) Pulse Ox O2 Delivery O2 Flow Rate FiO2 07/09/17 06:03 54 07/09/17 05:06 59 07/09/17 04:00 52 07/09/17 03:00 53 07/09/17 02:00 58 07/09/17 01:00 54 07/09/17 00:00 58 07/08/17 23:00 61 07/08/17 22:00 66 07/08/17 21:00 68 07/08/17 20:00 66 07/08/17 19:00 65 07/08/17 18:00 60 07/08/17 17:00 58 07/08/17 16:00 56 07/08/17 15:00 74 07/08/17 14:00 60 07/08/17 13:00 60 07/08/17 12:00 98.7 58 17 136/64 (88) 99 07/08/17 12:00 56 07/08/17 11:00 59 07/08/17 10:00 60 07/08/17 09:00 60 I/O 07/08/17 07/08/17 07/08/17 07/09/17 07/09/17 07/09/17 07:00 15:00 23:00 07:00 15:00 23:00 Intake Total 240 ml 640 ml 240 ml Output Total 200 ml 600 ml 300 ml Balance 40 ml 40 ml -60 ml Intake Oral 240 ml 640 ml 240 ml Output Urine Total 200 ml 600 ml 300 ml Stool Total 0 ml # Voids 2 # Bowel Movements 1 Physical Exam GENERAL: SKIN: Warm and dry. HEAD: Atraumatic. Normocephalic. EYES: Pupils equal and round. No scleral icterus. ENT: No nasal bleeding or discharge. NECK: Trachea midline. No JVD. CARDIOVASCULAR: Regular rate and rhythm. no murmurs RESPIRATORY: No accessory muscle use. Clear to auscultation. Breath sounds equal bilaterally. GASTROINTESTINAL: Abdomen soft, non-tender, nondistended. Hepatic and splenic margins not palpable. MUSCULOSKELETAL: Extremities without clubbing, cyanosis, or edema. No obvious deformities. NEUROLOGICAL: Awake and alert. No obvious cranial nerve deficits. Normal speech. PSYCHIATRIC: Appropriate mood and affect; insight and judgment normal. Laboratory Laboratory Tests Test 07/08/17 12:20 07/09/17 00:30 Activated Partial Thromboplast Time 54.3 SEC 54.6 SEC Assessment and Plan Problem List: (1) Atrial fibrillation ICD Codes: I48.91 - Atrial fibrillation Status: Chronic (2) Chest pain ICD Codes: R07.9 - Chest pain, unspecified Status: Acute Assessment and Plan 81 yo WF with paroxysmal afib, HTN, CVA, mild dementia and HLD who presented with chest pain and abnormal stress testing. CAD- s/p PCI on 07/07/17 showing severe 2 vessel disease involving bifurcation of moderate sized diagonal branch. Family wishes to pursue high risk PCI at this time vs. surgical intervention will attempt PCI this morning. afib- paroxysmal, currently in NSR. anticoagulation on hold HTN- well controlled. Problem Qualifiers (1) Atrial fibrillation: Qualified Codes: I48.0 - Paroxysmal atrial fibrillation Alexa Ham Jul 09, 2017 08:24
[2017-07-09] MEDS: DOCUSATE SODIUM 100 MG CAP PO SCH ×2 (09:00→21:21)
[2017-07-09] MEDS: ASPIRIN 325 MG TAB PO SCH (09:47)
[2017-07-09] MEDS: LOSARTAN 50 MG TAB PO SCH ×2 (09:47→21:21)
[2017-07-09] MEDS: PRAVASTATIN SOD 40 MG TAB PO SCH (09:48)
[2017-07-09] MEDS: GALANTAMINE HYDROBROMIDE 4 MG TAB PO SCH ×2 (09:48→21:21)
[2017-07-09] MEDS: HYDROCHLOROTHIAZIDE 25 MG TAB PO SCH (09:48)
[2017-07-09] MEDS: METOPROLOL TARTRATE 25 MG TAB PO SCH ×2 (09:48→21:21)
--- NOTE | 2017-07-09 10:21 | HHI.PR ---
Subjective Remarks No new complaints. No chest pain. No palpitations. Objective Vitals Vital Signs Date Time Temp Pulse Resp B/P (MAP) Pulse Ox O2 Delivery O2 Flow Rate FiO2 07/09/17 07:15 97.8 55 14 150/83 (105) 99 07/09/17 06:03 54 07/09/17 05:06 59 07/09/17 04:00 52 07/09/17 03:00 53 07/09/17 02:00 58 07/09/17 01:00 54 07/09/17 00:00 58 07/08/17 23:00 61 07/08/17 22:00 66 07/08/17 21:00 68 07/08/17 20:00 66 07/08/17 19:00 65 07/08/17 18:00 60 07/08/17 17:00 58 07/08/17 16:00 56 07/08/17 15:00 74 07/08/17 14:00 60 07/08/17 13:00 60 07/08/17 12:00 98.7 58 17 136/64 (88) 99 07/08/17 12:00 56 07/08/17 11:00 59 Result Diagram: 07/08/17 0628 07/08/17 0628 Imaging Last Impressions Myocardial Perfusion Scan Nuc Med 07/06/17 0000 Signed Impressions: Service Date/Time: Thursday, July 06, 2017 09:15 - CONCLUSION: 1. Moderate-sized stress-induced perfusion abnormality in the anterolateral wall. 2. Well-preserved ventricular wall motion and ejection fraction. RISK CATEGORY : Intermediate (1-3%% Annual Mortality Rate) Alejandro Goff MD Chest X-Ray 07/05/172115 Signed Impressions: Service Date/Time: Wednesday, July 05, 2017 21:33 - CONCLUSION: No acute disease. Jayant Luis MD FACR Objective Remarks General: NAD, Awake and alert Chest: CTA Cardiac: Regular, louis Abd: +BS, soft ND/NT Ext: No edema A/P Problem List: (1) Chest pain ICD Codes: R07.9 - Chest pain, unspecified Status: Acute Plan: - Pt is an 81 y/o female with HTN, HLD, hypothyroidism who presented to the ED with complaints of chest pain. - Patient was admitted to the chest pain center and CE were negative x 3. - Pt underwent Lexiscan stress test which showed moderate reversible defect. - She was transferred to [facility] Hospitalist service with Cardiology consulting. - Pt underwent C with Dr. Carver (07/08) --> severe 2V CAD - Pt's son declines surgical repair - Cardiology to attempt higher risk repair of severe 2V ds 07/10/17. - Pt's son requests anticoagulation d/t h/o CVA - heparin. - supportive care (2) Uncontrolled hypertension ICD Codes: I10 - Uncontrolled hypertension Status: Acute Plan: - Pt is on Cozaar 50mg po BID, and Metoprolol 50mg BID at home. - The metoprolol has been decreased due to bradycardia - HCTZ 25mg po daily was added on 07/07 - Monitor - Clonidine PRN (3) Atrial fibrillation ICD Codes: I48.91 - Atrial fibrillation Status: Chronic Plan: - Eliquis on hold for [facility]. - Metoprolol decreased to 12.5mg po BID due to bradycardia - Cont. Telemetry monitoring. (4) Hypothyroidism ICD Codes: E03.9 - Hypothyroidism Status: Chronic Plan: - Home med continued Assessment and Plan Problem Qualifiers (1) Atrial fibrillation: Qualified Codes: I48.0 - Paroxysmal atrial fibrillation Rufino Barron DO Jul 09, 2017 10:21
[2017-07-09] MEDS ORDERED: HEPARIN SODIUM - IV 10,000 UNITS/10 ML VIAL ONE (15:00)
[2017-07-09] MEDS ORDERED: HEPARIN-NS/PF FLUSH BAG 2,000 ML IV FLUSH ONE (15:00)
[2017-07-09] MEDS ORDERED: MIDAZOLAM HCL 2 MG/2 ML VIAL ONE ×3 (15:00→16:28)
[2017-07-09] MEDS ORDERED: NITROGLYCERIN INJ 5 ML ONE (15:00)
[2017-07-09] MEDS ORDERED: SODIUM CHLOR 0.9% 1000 ML INJ 1,000 ML IV SCH (16:44)
[2017-07-09] MEDS ORDERED: ONDANSETRON HCL 4 MG/2 ML VIAL IV PUSH PRN (16:45)
[2017-07-09] MEDS ORDERED: SODIUM CHLOR 0.9% 250 ML INJ 250 ML IV PRN (16:45)
[2017-07-09] MEDS ORDERED: LORazepam 2 MG/ML VIAL IV PUSH PRN (16:45)
[2017-07-09] MEDS ORDERED: MISC INFORMATION XX ONE (16:45)
[2017-07-09] MEDS ORDERED: METOCLOPRAMIDE HCL 10 MG/2 ML VIAL IV PUSH PRN (16:45)
[2017-07-09] MEDS ORDERED: ATROPINE SULFATE 1 MG/ML VIAL IV PUSH PRN (16:45)
[2017-07-09] MEDS ORDERED: LIDOCAINE HCL 1% 50 ML VIAL INFIL PRN (16:45)
[2017-07-09] MEDS ORDERED: BACITRACIN OINT 0.9 GM PKT TOP ONE (16:45)
--- NOTE | 2017-07-09 17:04 | CATHPROC ---
[facility] HIS Report Study Information Study Number Scheduled Start Study Start [id number] 07/09/2017 Jul 09 2017 2:39PM Referring Institution Admit Source Facility Department 1 Emergency department [facility] - Cable [employer] Up [employer]sembler Physician and Clinical Staff Initial Thaddeus Bardales Rubber Flap CutterAlicia Wick,RN Rubber Flap CutterCaty Green,ANA MARIA Recorder Humaira Ruiz BSN Scrub Hosterman, Arthur,RT(R) Procedures Performed Procedure Location (Site) Vessel Name Coronary Angiograms LCA Left Coronary L Heart Cath PTCA DIAG1 Prox Left Coronary PTCA LAD Mid Left Coronary PTCA RCA Prox Right Coronary Stent LAD Mid Left Coronary Stent RCA Prox Right Coronary Wire insertion Fem Art (right) Femoral Art Equipment Time Paddle Dyeing Machine Operator Description Size Mfg Part Number Used/Scraped COPILOT VALVE, BLEEDBACK [id number] 15:03 [employer] Used CONTROL *[id number] 16:02 [employer] WIRE, ASAHI GRANDSLAM 300CM 300CM Used *[id number] 15:54 [employer] WIRE, DOC EXTENSION 145CM 145CM 05060 *[id number] Used TRANSDUCER, TRUWAVE [id number] 15:03 HARRIS CHATMAN * Used W/STOCKCOCK *[id number] CARDIOVASCULAR WIRE, VIPER ADVANCE [id number] 15:54 Used SYSTEMS INC. CORONARY FLP *[id number] CARDIOVASCULAR WIRE, VIPER ADVANCE [id number] 15:54 Used [employer] CORONARY FLP *[id number] [phone] *5848654 [phone] *[id number] 16:41 [facility]IG[facility] ANGIOSEAL FR8 FR 8 Used *[id number] ENDOVASCULAR CATHETER, FR4 TRAILBLAZER [id number] 15:55 150CM Used COMPANY .014 *2707704 [id number] 15:03 MEDLINE INDUSTRIES PACK, CCL CUSTOM * Used *[id number] [id number] 15:03 MEDLINE PACER PEN, SKIN DUAL W/ RULER * Used *[id number] BALLOON, 1.25 X 6MM SPRINTER [id number] 16:00 MEDTRONIC 6MM Used LEGEND OTW *2141696 [id number] 15:37 MEDTR[employer]IC BALLOON, 1.5 X 15MM EUPHORA 15MM Used *3564757 [id number] 15:31 MEDTR[employer]IC BALLOON, 2.0 X 15MM EUPHORA 15MM Used *[id number] BALLOON, 2.5 X 8MM NC [id number] 16:35 MEDTRONIC 8MM Used EUPHORA *4085908 [id number] 15:38 MEDTRONIC BALLOON, 3.0 X 15MM EUPHORA 15MM Used *6067117 BALLOON, 3.0 X 15MM NC [id number] 15:49 MEDTRONIC 15MM Used EUPHORA *2708713 [id number] 16:33 MEDTR[employer]IC STENT, 2.5 12 INTEGRITY 2.5 12 Used *5157602 [id number] 15:47 MEDTR[employer]IC STENT, 3.0 26 INTEGRITY 3.0 26 Used *1984424 [id number] 15:33 [employer] MEDICAL 30 KATHI INDEFLATOR Used *0978228 [id number] 15:20 [employer] MEDICAL SHEATH, FR7.5 PRELUDE 23CM FR 7.5 Used [id number] 15:03 [employer] MEDICAL WIRE, 3MMJ .035 180CM 180CM Used *5576510 [id number] 15:03 NAMIC MANIFOLD, 4 PORT * Used *[id number] 15:03 NYCOMED OMNIPAQUE, 350 MG, 150ML 150ML [id number] Used 15:19 NYCOMED OMNIPAQUE, 350 MG, 150ML 150ML [id number] Used [id number] 15:03 [employer] BLANKET,WARM AIR CCL * Used *[id number] WIRE, RUNTHROUGH NS FLOPPY 25-1011 15:21 [employer] 180CM Used .014 180CM *[id number] WIRE, RUNTHROUGH NS FLOPPY 25-1011 15:21 [employer] 180CM Used .014 180CM *[id number] Equipment Model, Serial, Lot Number and Expiration Data Description Model Number Serial Number Lot Number Expiration Date ANGIOSEAL FR8 [id number] 05-13-2018 STENT, 2.5 12 INTEGRITY [id number] 11-05-2018 STENT, 3.0 26 INTEGRITY [id number] 12-11-2018 WIRE, VIPER ADVANCE CORONARY [id number] 07-11-2018 WIRE, VIPER ADVANCE CORONARY [id number] 07-11-2018 History: Current Medications Medication Dosage/Unit Route Frequency Last Date/Time Taken COZAAR Statins (any) LOPRESSOR ASA 325 mg ELIQUIS 07/05/2017 History: Allergies Allergy Reaction codeine ANAPHYLAXIS methocarbamol DYSPNEA, CHOKING chlorzoxazone DYSPNEA, CHOKING carisoprodol DYSPNEA, CHOKING metaxalone DYSPNEA, CHOKING baclofen DYSPNEA, CHOKING gemfibrozil CAUSES PALPITATIONS lovastatin MYALGIAS AND DIZZINESS furosemide GENERIC LASIX - MUSCLE CRAMPS indomethacin CEKEBREX VIOXX - DYSPEPSIA ibuprofen CEKEBREX VIOXX - DYSPEPSIA naproxen CEKEBREX VIOXX - DYSPEPSIA flurbiprofen CEKEBREX VIOXX - DYSPEPSIA ketoprofen CEKEBREX VIOXX - DYSPEPSIA omeprazole DIARRHEA etodolac CEKEBREX VIOXX - DYSPEPSIA pravastatin LIPITOR ZOCOR MEVACOR-MYALGIAS AND DIZZINESS clarithromycin SOB simvastatin MYLAGIAS AND DIZZINESS amlodipine LIPITOR ZOCOR MEVACOR-MYALGIAS AND DIZZINESS oxaprozin CEKEBREX VIOXX - DYSPEPSIA diclofenac CEKEBREX VIOXX - DYSPEPSIA gabapentin MUSCLE CRAMPS lansoprazole Diarrhea cyclobenzaprine DYSPNEA, CHOKING ketorolac CEKEBREX VIOXX - DYSPEPSIA tizanidine DYSPNEA, CHOKING atorvastatin LIPITOR ZOCOR MEVACOR-MYALGIAS AND DIZZINESS sodium phosphate N/V celecoxib Dyspepsia rofecoxib MUSCLE CRAMPING ALLERGY SHOTS ASTHMA CHOLESTEROL MEDICATIONS MUSCLE CRAMPS OSTEOPOROSIS MEDICATIONS JAW EROSION History: Risk Factors Family History of Hypertension Dyslipidemia Previous RI Previous Heart Failure Premature CAD Yes Yes No No No Prior Valve Prior PCI Prior CABG Surgery No No No Cerebrovascular Peripheral Artery Chronic Lung On Dialysis Diabetes Disease Disease Disease No Yes No No No History: Symptoms/Diagnosis Selection Items Chest pain History: Stress Tests Stress or Imaging Studies Performed Yes Standard Exercise Stress Test No Stress Echo No Stress Test SPECT Stress Test SPECT Result Stress Test SPECT Ischemia Risk/Extent Yes Positive High Stress Test CMR No Cardiac CTA Coronary Calcium Score No No History: Other Current Smoker No Labs Hgb (g/dl) Hct (%) WBC (l/cumm) Platelets (thousands) 11.60-17.00 35.00-51.00 4.00-11.00 150.00-450.00 11.9 34.7 6.3 166 Glucose (mg/dl) BUN (mg/dl) Creatinine (mg/dl) BUN:Creatinine (1:x) 74.00-106.00 7.00-18.00 0.50-1.30 10.00-20.00 92 15 0.8 18.8 Na (meq/l) K (meq/l) 136.00-145.00 3.50-5.10 136 3.6 INR (PTT:PT) 0.90-1.10 1.1 Troponin I (ng/ml) Troponin T (ng/ml) CPK (u/l) CPK-MB (ng/ML) 0.02-0.05 0.40-2.10 26.00-308.00 0.50-3.60 0.02 0.02 60 1.4 Medication Medication Total Dose (Bolus/Oral) Medication Total Dosage/Unit 1% XYLOCAINE 10 mL HEPARIN 5000 units NTG (IC) 800 mcg PLAVIX 600 mg VERSED 6 mg Medications (Bolus/Oral) Medication Time Given Dosage/Unit Administered By Reason VERSED 07/09/2017 3:17:38 PM 1 mg Adamy, Alicia 1 mg VERSED given in lab by Alicia De La Rosa RN in Left Wrist via Peripheral IV. Ordered by [facility] sylvie Carver. 1% XYLOCAINE 07/09/2017 3:18:00 PM 10 mL Thaddeus Carver 10 mL 1% XYLOCAINE given in lab by Thaddeus Carver in Right Groin via Subcutaneous. Ordered by Thaddeus Carver. HEPARIN 07/09/2017 3:21:32 PM 5000 units Alicia De La Rosa 5000 units HEPARIN given in lab by Alicia De La Rosa RN in Left Wrist via Peripheral IV. Ordered by Thaddeus Trevizo. VERSED 07/09/2017 3:22:44 PM 1 mg Adamy, Alicia 1 mg VERSED given in lab by Alicia De La Rosa RN in Left Wrist via Peripheral IV. Ordered by [facility] sylvie Carver. NTG (IC) 07/09/2017 3:43:12 PM 200 mcg Thaddeus Carver 200 mcg NTG (IC) given in lab by Thaddeus Carver via Intra-coronary. Ordered by Thaddeus Carver. VERSED 07/09/2017 3:45:44 PM 1 mg Adamy, Alicia 1 mg VERSED given in lab by Alicia De La Rosa RN in Left Wrist via Peripheral IV. Ordered by [facility] sylvie Carver. NTG (IC) 07/09/2017 4:03:30 PM 200 mcg Thaddeus Carver 200 mcg NTG (IC) given in lab by Thaddeus Carver via Intra-coronary. Ordered by Thaddeus Carver. VERSED 07/09/2017 4:04:24 PM 1 mg Adamy, Alicia 1 mg VERSED given in lab by Alicia De La Rosa RN via Peripheral IV. Ordered by Thaddeus Carver. NTG (IC) 07/09/2017 4:06:44 PM 200 mcg Thaddeus Carver 200 mcg NTG (IC) given in lab by Thaddeus Carver via Intra-coronary. Ordered by Thaddeus Carver. NTG (IC) 07/09/2017 4:16:44 PM 200 mcg Thaddeus Carver 200 mcg NTG (IC) given in lab by Thaddeus Carver via Intra-coronary. Ordered by Thaddeus Carver. VERSED 07/09/2017 4:29:11 PM 1 mg Caty Tavera 1 mg VERSED given in lab by Caty Tavera RN via Peripheral IV. Ordered by Thaddeus Carver. PLAVIX 07/09/2017 4:50:29 PM 600 mg Adamy, Alicia 600 mg PLAVIX given in lab by Alicia De La Rosa RN via Oral. Ordered by Thaddeus Carver. VERSED 07/09/2017 4:51:49 PM 1 mg Adamy, Alicia 1 mg VERSED given in lab by Alicia De La Rosa RN via Peripheral IV. Ordered by Thaddeus Carver. Medication (Drip) Medication Time Given Dosage/Unit Concentration/Unit Diluent (ml) Solution HEPARIN DRIP STOPPED 07/09/2017 2:58:09 PM 0 units/hr 0 D5W 0 units/hr HEPARIN DRIP STOPPED given. Pump/Drip Flow = 0 ml/hr using. Previously infusing at 700 uni ts/hr IV Solutions 07/09/2017 2:43:46 PM 50 mL (IV) NaCl .9 Patient arrived on IV Solutions in Left Wrist via Peripheral IV. Pump/Drip Flow using NaCl .9. Initial Case Assessment Cardiovascular HR Rhythm 71 sr Edema Present Skin color Skin None Normal Warm Dry Circulatory - Right Pulses Dorsalis Pedis Femoral 2 2 Scale (0,1,2,3,4,d) Circulatory - Left Pulses Dorsalis Pedis Femoral 2 2 Scale (0,1,2,3,4,d) Circulatory - Lower Extremities Color Lower Right Color Lower Left Normal Normal Neurological State Alert Moves all extremities Respiration - General Respiration Rate SpO2 (%) O2 (lpm) (B/min) 12 98 0 Final Case Assessment Cardiovascular HR Rhythm NIBP 62 sr 157/87 Edema Present Skin color Skin None Normal Warm Dry Circulatory - Right Pulses Dorsalis Pedis Femoral 2 2 Scale (0,1,2,3,4,d) Circulatory - Left Pulses Dorsalis Pedis Femoral 2 2 Scale (0,1,2,3,4,d) Circulatory - Lower Extremities Color Lower Right Color Lower Left Normal Normal Neurological State Alert Moves all extremities Respiration - General Respiration Rate SpO2 (%) O2 (lpm) (B/min) 12 92 0 Chronological Log Time Study Chronological Log 14:39:14 Patient arrived via Bed. 14:43:29 Patient Name, D.O.B, / Armband Verified By R.N. 14:43:30 Consent signed by the physician and the patient and verified by the Cable Mock Up Assembler staff. 14:43:31 Pre-op and post- op instructions given; patient acknowledges understanding of instructions. 14:43:31 Verbal Stimulation=2 Physical Stimulation=2 Airway=2 Respiration=2 TOTAL=8. (0=absent, 1=li mited, 2=present) 14:43:34 Presedation assessment performed by Cable Mock Up Assembler RN. 14:43:38 Patient has been NPO for More than 6Hrs. 14:43:38 Skin Breakdown- none per patient 14:43:39 Patient Warmer Placed on the Table. 14:43:42 Disposable Defibrillator Pads Placed On Patient. 14:43:42 Asya Prominences Protected 14:43:44 A # 20 IV was noted in the Wrist (left). Grade = 0 14:43:46 Patient arrived on IV Solutions in Left Wrist via Peripheral IV. Pump/Drip Flow using NaCl .9. 14:43:47 History and physical on the chart or being dictated. Assessment: Initial Case, HR=71 BPM, Rhythm=sr, Edema=None, Color=Normal, Skin = Warm, Dry Right Pulses: Henry Ped=2, Femoral=2 Left Pulses: Henry Ped=2, Femoral=2 14:43:49 Lower Right Extremities: Color=Normal Lower Left Extremities: Color=Normal Neurological: State=Alert, RUIZ Respiration: Resp=12 B/min, SpO2=98 %, O2=0 lpm Vitals capture started with the following parameters, Patient=Adult, Interval=5 min, Initial Pr suifou=808 mmHg, 14:43:58 Deflation Rate=5 mmHg, Cuff placed on Right Ankle 14:44:45 HR=59 bpm, WFRB=526/81 mmhg, SpO2=98.0 %, Resp=23 B/min, Pain=0, David=10, Portillo=2 14:49:46 HR=59 bpm, NMRU=120/92 mmhg, AyC1=600.0 %, Resp=12 B/min, Pain=0, David=10, Portillo=2 14:54:47 Reference ECG taken 14:55:19 HR=57 bpm, AHVV=382/89 mmhg, SpO2=99.0 %, Resp=13 B/min, Pain=0, David=10, Portillo=2 14:58:09 0 units/hr HEPARIN DRIP STOPPED given. Pump/Drip Flow = 0 ml/hr using. Previously infusing at 700 units/hr 14:59:46 HR=62 bpm, JHQI=145/88 mmhg, SpO2=97.0 %, Resp=25 B/min, Pain=0, Daivd=10, Portillo=2 15:00:59 Bilateral groins prepped with 2% chlorhexidine, and draped after a 3 minute waiting time. 15:04:45 HR=63 bpm, ZRPP=188/85 mmhg, SpO2=97.0 %, Resp=13 B/min, Pain=0, David=10, Portillo=2 15:09:33 MD paged 15:09:41 Pressure channel 1 zeroed. 15:09:48 HR=57 bpm, HTCA=753/89 mmhg, SpO2=97.0 %, Resp=18 B/min, Pain=0, David=10, Portillo=2 15:10:37 MD responded 15:13:42 MD arrived. 15:15:28 HR=65 bpm, KALJ=941/95 mmhg, ZxR4=262.0 %, Resp=21 B/min, Pain=0, David=10, Portillo=2 Time Out. Correct patient, correct procedure, correct physician, power injectornot loaded with contrast with surgical 15:17:28 team present. Time Out Concurred by MD and individual staff in procedure. 15:17:36 Case Start 15:17:38 1 mg VERSED given in lab by Alicia De La Rosa RN in Left Wrist via Peripheral IV. Ordered by Thaddeus Carver. 15:18:00 10 mL 1% XYLOCAINE given in lab by Thaddeus Carver in Right Groin via Subcutaneous. Ordered by Thaddeus Carver. 15:19:50 HR=61 bpm, PJCR=597/91 mmhg, SpO2=97.0 %, Resp=23 B/min 15:19:52 Access site was Right Femoral Artery. 15:20:06 A SHEATH, FR7.5 PRELUDE 23CM FR 7.5 was advanced into the Fem Art (right) using the Percuta neous technique. 15:21:32 5000 units HEPARIN given in lab by Alicia De La Rosa RN in Left Wrist via Peripheral IV. Ord ered by Thaddeus Carver. A XB 3.5 GUIDE CATHETER FR 7 was advanced over a wire. OMNIPAQUE, 350 MG, 150ML 150ML was used for 15:22:16 injections. 15:22:44 1 mg VERSED given in lab by Alicia De La Rosa RN in Left Wrist via Peripheral IV. Ordered by Thaddeus Carver. Recorded Pressure: Ao, HR=65, Condition=Condition 1 15:23:03 (Aorta) Ao 172/70/110 15:23:19 The LCA was injected and visualized at various angles. OMNIPAQUE, 350 MG, 150ML 150ML used . 15:23:46 A WIRE, RUNTHROUGH NS FLOPPY .014 180CM 180CM was inserted via Fem Art (right). 15:24:43 HR=66 bpm, IVLZ=622/75 mmhg, SpO2=91.0 %, Resp=21 B/min, Pain=0, David=10, Portillo=2 15:24:43 Wire removed for reshaping 15:25:21 A WIRE, RUNTHROUGH NS FLOPPY .014 180CM 180CM was inserted via Fem Art (right). 15:26:37 Interventional wire has crossed the lesion 15:28:37 A WIRE, RUNTHROUGH NS FLOPPY .014 180CM 180CM was inserted via Fem Art (right). 15:29:28 Interventional wire has crossed the lesion 15:29:42 HR=68 bpm, SMHB=247/77 mmhg, SpO2=93.0 %, Resp=22 B/min, Pain=0, David=10, Portillo=2 A BALLOON, 2.0 X 15MM EUPHORA 15MM was inserted over WIRE, RUNTHROUGH NS FLOPPY .014 180CM 180C M via 15:31:32 the Fem Art (right). A BALLOON, 2.0 X 15MM EUPHORA 15MM over a WIRE, RUNTHROUGH NS FLOPPY .014 180CM 180CM in the DI AG1 15:32:59 Prox was inflated using a 30 KATHI INDEFLATOR at 8 kathi for 30 sec. 15:34:39 HR=67 bpm, XDBZ=301/83 mmhg, SpO2=96.0 %, Resp=20 B/min, Pain=0, David=10, Portillo=2 15:34:50 Balloon Removed. 15:35:36 Activated Clotting Time Drawn A BALLOON, 1.5 X 15MM EUPHORA 15MM was inserted over WIRE, RUNTHROUGH NS FLOPPY .014 180CM 180C M via 15:37:59 the Fem Art (right). 15:39:42 HR=64 bpm, XWNU=231/93 mmhg, SpO2=97.0 %, Resp=26 B/min, Pain=0, David=10, Portillo=2 15:39:55 Balloon Removed, no inflation. A BALLOON, 3.0 X 15MM EUPHORA 15MM was inserted over WIRE, RUNTHROUGH NS FLOPPY .014 180CM 180C M via 15:40:28 the Fem Art (right). A BALLOON, 3.0 X 15MM EUPHORA 15MM over a WIRE, RUNTHROUGH NS FLOPPY .014 180CM 180CM in the LA D Mid 15:40:52 was inflated using a 30 KATHI INDEFLATOR at 10 kathi for 30 sec. A BALLOON, 3.0 X 15MM EUPHORA 15MM over a WIRE, RUNTHROUGH NS FLOPPY .014 180CM 180CM in the LA D Mid 15:41:40 was inflated using a 30 KATHI INDEFLATOR at 12 kathi for 20 sec. A BALLOON, 3.0 X 15MM EUPHORA 15MM over a WIRE, RUNTHROUGH NS FLOPPY .014 180CM 180CM in the LA D Mid 15:42:16 was inflated using a 30 KATHI INDEFLATOR at 16 kathi for 40 sec. 15:42:19 ACT (Normal Range 90-180) = 352 15:43:12 200 mcg NTG (IC) given in lab by Thaddeus Carver via Intra-coronary. Ordered by Carly Carver en. 15:44:45 HR=68 bpm, NLSK=852/89 mmhg, SyW8=638.0 %, Resp=14 B/min, Pain=0, David=10, Portillo=2 15:45:44 1 mg VERSED given in lab by Alicia De La Rosa RN in Left Wrist via Peripheral IV. Ordered by Thaddeus Carver. An STENT, 3.0 26 INTEGRITY 3.0 26 Bare Metal Stent was inserted through a XB 3.5 GUIDE CATHETER FR 7 over a 15:48:17 WIRE, RUNTHROUGH NS FLOPPY .014 180CM 180CM. 15:49:33 Stent not deployed. Stent removed and intact. 15:49:46 HR=66 bpm, XRPC=520/81 mmhg, SpO2=97.0 %, Resp=19 B/min, Pain=0, David=10, Portillo=2 15:54:43 HR=63 bpm, VWHU=517/91 mmhg, SpO2=97.0 %, Resp=15 B/min, Pain=0, David=10, Portillo=2 15:54:45 A WIRE, DOC EXTENSION 145CM 145CM was attached via Fem Art (right). A CATHETER, FR4 TRAILBLAZER .014 150CM was advanced over a wire. OMNIPAQUE, 350 MG, 150ML 150ML was 15:56:21 used for injections. Over wire to LAD 15:58:43 Trailblazer Catheter was removed 15:59:42 HR=64 bpm, UVUX=496/90 mmhg, SpO2=96.0 %, Resp=16 B/min, Pain=0, David=10, Portillo=2 A BALLOON, 1.25 X 6MM SPRINTER LEGEND OTW 6MM was inserted over WIRE, RUNTHROUGH NS FLOPPY .014 16:01:20 180CM 180CM via the Fem Art (right). 16:01:44 Runthrough Wire with Doc extension removed 16:02:34 A WIRE, ASAHI GRANDSLAM 300CM 300CM was inserted via Fem Art (right) to LAD 16:02:52 Balloon Removed. 16:03:30 200 mcg NTG (IC) given in lab by Thaddeus Carver via Intra-coronary. Ordered by Carly Carver 16:04:24 1 mg VERSED given in lab by Alicia De La Rosa, RN via Peripheral IV. Ordered by Rowan Carver 16:04:45 HR=72 bpm, QNQZ=242/87 mmhg, SpO2=98.0 %, Resp=14 B/min, Pain=0, David=10, Portillo=2 A BALLOON, 3.0 X 15MM NC EUPHORA 15MM over a WIRE, ASAHI GRANDSLAM 300CM 300CM in the LAD Mid w as 16:04:51 inflated using a 30 KATHI INDEFLATOR at 18 kathi for 30 sec. 16:06:40 Balloon Removed. 16:06:44 200 mcg NTG (IC) given in lab by Thaddeus Carver via Intra-coronary. Ordered by Carly Carver An STENT, 3.0 26 INTEGRITY 3.0 26 Bare Metal Stent was inserted through a XB 3.5 GUIDE CATHETER FR 7 over a 16:07:02 WIRE, ASAHI GRANDSLAM 300CM 300CM to LAD 16:09:39 Stent not deployed. Stent removed and intact. 16:09:44 HR=56 bpm, BPNA=171/74 mmhg, SpO2=98.0 %, Resp=10 B/min, Pain=0, David=10, Portlilo=2 An STENT, 3.0 26 INTEGRITY 3.0 26 Bare Metal Stent was inserted through a XB 3.5 GUIDE CATHETER FR 7 over a 16:11:31 WIRE, ASAHI GRANDSLAM 300CM 300CM to LAD 16:13:45 Runthrough wire to diag removed A STENT, 3.0 26 INTEGRITY 3.0 26 was deployed using a 30 KATHI INDEFLATOR at 16 atmospheres for 1 5 seconds in 16:14:02 the LAD Mid. 16:14:39 HR=62 bpm, UFRV=169/86 mmhg, SpO2=96.0 %, Resp=12 B/min, Pain=0, David=10, Portillo=2 16:15:05 Delivery device removed 16:16:44 200 mcg NTG (IC) given in lab by Thaddeus Carver via Intra-coronary. Ordered by Carly Carver A BALLOON, 3.0 X 15MM NC EUPHORA 15MM was inserted over WIRE, ASAHI GRANDSLAM 300CM 300CM via t he Fem 16:17:05 Art (right). A BALLOON, 3.0 X 15MM NC EUPHORA 15MM over a WIRE, ASAHI GRANDSLAM 300CM 300CM in the LAD Mid w as 16:18:02 inflated using a 30 KATHI INDEFLATOR at 22 kathi for 30 sec. 16:19:06 Balloon Removed. 16:19:44 HR=60 bpm, YAFP=021/74 mmhg, SpO2=94.0 %, Resp=15 B/min, Pain=0, David=10, Portillo=2 16:21:07 Patient complaining of chest pain 16:22:03 Grandslam wire removed 16:22:20 Activated Clotting Time Drawn 16:24:29 Catheter was removed 16:25:18 HR=60 bpm, IETJ=730/81 mmhg, SpO2=96.0 %, Resp=11 B/min, Pain=0, David=10, Portillo=2 A 3DRC GUIDE CATHETER FR 6 was advanced over a wire. OMNIPAQUE, 350 MG, 150ML 150ML was used fo r 16:26:30 injections. 16:27:33 ACT (Normal Range 90-180) = 259 16:27:39 A WIRE, RUNTHROUGH NS FLOPPY .014 180CM 180CM was inserted via Fem Art (right). 16:29:11 1 mg VERSED given in lab by Caty Tavera, RN via Peripheral IV. Ordered by Rowan Carver A BALLOON, 2.0 X 15MM EUPHORA 15MM was inserted over WIRE, RUNTHROUGH NS FLOPPY .014 180CM 180C M via 16:29:33 the Fem Art (right). 16:29:45 HR=61 bpm, LCSP=634/81 mmhg, SpO2=97.0 %, Resp=26 B/min, Pain=0, David=10, Portillo=2 A BALLOON, 2.0 X 15MM EUPHORA 15MM over a WIRE, RUNTHROUGH NS FLOPPY .014 180CM 180CM in the RC A 16:30:13 Prox was inflated using a 30 KATHI INDEFLATOR at 12 kathi for 20 sec. An STENT, 2.5 12 INTEGRITY 2.5 12 Bare Metal Stent was inserted through a [facility] GUIDE CATHETER F R 6 over a 16:32:57 WIRE, RUNTHROUGH NS FLOPPY .014 180CM 180CM. A STENT, 2.5 12 INTEGRITY 2.5 12 was deployed using a 30 KATHI INDEFLATOR at 16 atmospheres for 2 0 seconds in 16:33:45 the RCA Prox. 16:34:44 HR=63 bpm, EUUN=309/79 mmhg, SpO2=94.0 %, Resp=12 B/min, Pain=0, David=10, Portillo=2 16:34:57 Delivery device removed A BALLOON, 2.5 X 8MM NC EUPHORA 8MM was inserted over WIRE, RUNTHROUGH NS FLOPPY .014 180CM 180 CM via 16:36:07 the Fem Art (right). A BALLOON, 2.5 X 8MM NC EUPHORA 8MM over a WIRE, RUNTHROUGH NS FLOPPY .014 180CM 180CM in the R CA 16:36:25 Prox was inflated using a 30 KATHI INDEFLATOR at 20 kathi for 20 sec. 16:37:28 Balloon Removed. 16:38:08 Wire removed 16:39:02 An injection in the Fem Art (right) was made through the SHEATH, FR7.5 PRELUDE 23CM FR 7.5. 16:39:47 HR=64 bpm, PFNY=355/75 mmhg, SpO2=97.0 %, Resp=23 B/min, Pain=0, David=10, Portillo=2 16:40:17 Catheter(s) removed without difficulty 16:40:19 ANGIOSEAL FR8 FR 8 placement in the Fem Art (right), light pressure held for 5 min 16:41:37 No case complications noted. 16:41:39 Cine recording checked. 16:41:52 Bedside Report will be given. 16:41:54 Implantable Device card placed in patient's chart. 16:42:22 A Left Heart Cath was performed. 16:42:34 Case End 16:45:26 Sterile dressing applied to site 16:45:31 HR=62 bpm, ONKH=188/97 mmhg, SpO2=97.0 %, Resp=17 B/min, Pain=0, David=10, Portillo=2 16:49:51 HR=62 bpm, SENS=233/87 mmhg, SpO2=92.0 %, Resp=20 B/min, Pain=0, David=10, Portillo=2 Assessment: Final Case, HR=62 BPM, Rhythm=sr, EDDT=471/87 mmhg, Edema=None, Color=Normal, Skin = Warm, Dry Right Pulses: Henry Ped=2, Femoral=2 Left Pulses: Henry Ped=2, Femoral=2 16:50:19 Lower Right Extremities: Color=Normal Lower Left Extremities: Color=Normal Neurological: State=Alert, RUIZ Respiration: Resp=12 B/min, SpO2=92 %, O2=0 lpm 16:50:29 600 mg PLAVIX given in lab by Alicia De La Rosa, RN via Oral. Ordered by Thaddeus Carver. 16:51:49 1 mg VERSED given in lab by Alicia De La Rosa, ANA MARIA via Peripheral IV. Ordered by Carly Carver en. 16:54:46 Vitals capture stopped. 16:55:33 Patient moved to [facility] End Study - Contrast Media Used In Study Contrast Total Opened (mL) Total Used (mL) Total Wasted (mL) Omnipaque 155 155 0 End Study - Maximum Contrast Load Max Contrast Load (mL) 490.6 End Study - Radiation Exposure Fluoro Time (minutes) 22.0 End Study - Patient Disposition Complications Transferred To Interventional Outcome No Telemetry Bed successful
[2017-07-09] MEDS ORDERED: CLOPIDOGREL 300 MG TAB PO ONE (17:30)
--- NOTE | 2017-07-09 17:31 | MA ---
cc: Thaddeus Carver MD DATE: 07/09/2017 PROCEDURES PERFORMED: 1. Coronary angiography. 2. Percutaneous intervention with bare metal stent to the mid-left anterior descending coronary artery and proximal right coronary artery. 3. Percutaneous transluminal angioplasty of the first diagonal branch. METHOD: Risks, benefits, and alternatives discussed with the patient. The patient understood and consented to the procedure. The patient was brought into the cardiac catheterization lab, placed on the catheterization table. The right groin was prepped and draped in sterile fashion. The right groin was anesthetized with 2% lidocaine. The right femoral artery was cannulated and a 7-Cymraes, 11-cm sheath was placed without difficulty. CORONARY ANGIOGRAPHY: Please see detailed diagnostic coronary angiogram dictated earlier this week. Briefly findings: 1. Left main has a 30-40% stenosis. 2. Left anterior descending coronary with 90% heavily calcified midsegment stenosis with a 90% diagonal branch stenosis. 3. Circumflex has mild luminal irregularities. 4. Right coronary has an 80% ostial calcified stenosis. PERCUTANEOUS INTERVENTION: Two Terumo 0.014 inch, 180 cm wires were navigated down the distal left anterior descending and distal diagonal branches through a 6-Cymraes XB 3.5 guide catheter. Heparin was administered throughout the entire procedure to maintaining appropriate anticoagulation. A 3.0 x 15 mm balloon was then deployed in the mid-segment of the left anterior descending coronary artery and a 2.0 x 15 mm balloon deployed in the proximal diagonal branch. We tried to pass a 3.0 x 26 mm bare-metal stent, but due to the calcification, we were unable to do so. We went in with a Non-Compliant balloon up to 18 atmospheres. We were finally able to pass the 3.0 x 26 mm bare-metal stent down to the mid left anterior descending coronary and after pulling the diagonal wire we deployed the stent. We postdilated the stent to 22 atmospheres in the midsegment. Repeat angiography showed the diagonal was still open, very small caliber size, but the LAD itself is widely patent, mild luminal irregularities distally. Attention was then directed towards the right coronary artery. Terumo Runthrough wire was navigated down the distal right coronary. A 2.5 x 12 mm balloon was then deployed at the ostium. 2.5 x 12 mm Rx bare metal Medtronic stent was deployed at the ostium and postdilated with the Non-Compliant balloon to 20 atmospheres. Repeat angiography showed mild residual stenosis, but ANSLEY-3 flow. CONCLUSIONS: Successful percutaneous intervention with bare metal stents to the mid left anterior descending and proximal right coronary arteries. PLAN: The patient will be initiated on Plavix in addition to the Eliquis, which we can start tomorrow. She is intolerant to statin therapy. We will not initiate any beta gisele secondary to bradycardia. We will monitor closely for any bleeding complications. An 8-Cymraes Angio-Seal device was deployed successfully. Hopefully, she does well and we can anticipate possible discharge in the next 24-48 hours. MD TOO López/SB , 04:51 PM , 05:30 PM
[2017-07-09] MEDS ORDERED: ATROPINE SULFATE 1 MG/10 ML SYRINGE ONE (22:28)
[2017-07-09 22:40] LABS: HEMATOCRIT 34.2 % (35.0-46.0); HEMOGLOBIN 11.7 GM/DL (11.6-15.3)
--- NOTE | 2017-07-09 23:08 | HHI.FPPN ---
Addendum to progress note ADDENDUM Reason for addendum: Additonal documentation Additional information Ms. Sandoval is s/p cardiac cath procedure. Halicat was called due to vasovagal episode with HR in the 40s after nurse applied pressure on Right groin site of recent cardiac cath insertion. Patient received Ativan and Lopressor a few hours before Halicat was called. Resident team responded. Denied any CP or SOB. Nurse reported that patient also had one episode of vomiting and was given zofran. O: VS: Afebrile, HR- 57, BP- 146/69, O2 sat 100% on 3L NC Mental status:responsive, able to be awaken and able to answer questions. AAO x3 Cardio: RRR Ms. Sandoval is a 81 yo F s/p cardiac cath on 07/09 with stent placement who experience a vasovagal episode while pressure was being applied to Right groin site of cath insertion by her nurse before she was taken to get CT scan. Patient appeared to be in NAD, VS stable, AAOx3 with no complaints. Clinically stable. STAT hgb 11.7 stable. Patient ok to proceed to CT scan for assessment of hematoma. Yosi Torres MD, R1 Jul 09, 2017 23:08
--- NOTE | 2017-07-09 23:14 | RADRPT ---
EXAM DATE/TIME: 07/09/2017 22:56 [place] COMPARISON: No previous studies available for comparison. INDICATIONS : Pain post cardiac cath. Evaluate hemorrhage. ORAL CONTRAST: No oral contrast ingested. RADIATION DOSE: 10.114 CTDIvol (mGy) MEDICAL HISTORY : Cardiovascular disease. Hernia, hiatal. Hypertension. SURGICAL HISTORY : Appendectomy. ENCOUNTER: Initial ACUITY: 1 day PAIN SCALE: 8/10 LOCATION: Right abdomen/groin. TECHNIQUE: Volumetric scanning of the abdomen and pelvis was performed. Using automated exposure control and ad justment of the mA and/or kV according to patient size, radiation dose was kept as low as reasonably achievable to obtain optimal diagnostic quality images. DICOM format image data is available electro nically for review and comparison. 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 There is an acute to subacute appearing hematoma in the right rectus abdominous muscle sheath. The hematoma is approxim ately 4.6 x 9.3 cm in greatest transaxial dimension. I don't see a definite hematoma of either groin. There is also no retroperitoneal hematoma. No acute abnormalities are demonstrated of the liver, spleen, pancreas, adrenal glands or kidneys. No obstruction or inflammatory change is seen of the gastrointestinal tract. Considerable stool in the colon. There is a small hiatal hernia. Tiny effusions and mild atelectasis seen of the visualized lung bases. No acute bony abnormality demonstrated. CONCLUSION: Right rectus sheath hematoma that appears acute but I don't convincingly see any active bleeding. Shaggy ateral inguinal areas are considerably obscured by metallic streak artifact related to the patient's hip arthroplasties. There is some induration of the soft tissues in the right groin but I don't convi ncingly see a right inguinal hematoma. No acute intraperitoneal or retroperitoneal abnormality demons trated. Abner Beckett MD on July 09, 2017 at 23:09 Board Certified Radiologist. This report was verified electronically.
[2017-07-10] VITALS (15 sets, daily range): BP systolic 126–150; BP diastolic 73–78; PULSE 54–82; RESP 16; TEMP 97.5–98.4; O2SAT 97–99
[2017-07-10] MEDS ORDERED: traMADol HCL 50 MG TAB PO ONE (01:45)
[2017-07-10] MEDS: LEVOTHYROXINE SODIUM 50 MCG TAB PO SCH (05:48)
[2017-07-10 07:23] LABS: AUTOMATED NEUTROPHIL # 4.5 TH/MM3 (1.8-7.7); BASOPHIL % 0.4 % (0.0-2.0); EOSINOPHIL # 0.2 TH/MM3 (0-0.4); EOSINOPHIL % 2.7 % (0.0-4.0); HEMATOCRIT 33.8 % (35.0-46.0); HEMOGLOBIN 11.7 GM/DL (11.6-15.3); LYMPHOCYTE # 1.3 TH/MM3 (1.0-4.8); MEAN CELL VOLUME 96.8 FL (80.0-100.0); MEAN CORPUSCULAR HEMOGLOBIN 33.5 PG (27.0-34.0); MEAN CORPUSCULAR HGB CONC 34.6 % (32.0-36.0); MEAN PLATELET VOLUME 7.9 FL (7.0-11.0); MONO % 11.1 % (0.0-8.0); MONOCYTE # 0.8 TH/MM3 (0-0.9); NEUT % 66.8 % (16.0-70.0); PLATELET COUNT 155 TH/MM3 (150-450); RED BLOOD COUNT 3.49 MIL/MM3 (4.00-5.30); RED CELL DISTRIBUTION WIDTH 13.4 % (11.6-17.2); WHITE BLOOD COUNT 6.8 TH/MM3 (4.0-11.0)
[2017-07-10 07:46] LABS: BICARBONATE 23.1 MEQ/L (21.0-32.0); CALCIUM 8.4 MG/DL (8.5-10.1); CREATININE 0.83 MG/DL (0.50-1.00)
[2017-07-10 07:49] LABS: CHOLESTEROL/ HDL RATIO 2.67 RATIO; HDL CHOLESTEROL 50.5 MG/DL (40.0-60.0)
[2017-07-10] MEDS ORDERED: ASPIRIN EC 81 MG TABEC PO SCH (09:00)
[2017-07-10] MEDS ORDERED: CLOPIDOGREL 75 MG TAB PO SCH (09:00)
--- NOTE | 2017-07-10 09:15 | PD.CARD.PN ---
Subjective Subjective Remarks Son at bedside. No chest pain. Patient feels breathing is a little better. She does have some right groin discomfort. Wants to try to walk today. Telemetry with no arrhythmias overnight. (Sen Rivas) Objective Medications Current Medications Medications (Trade) Dose Ordered Sig/Pablo Route Start Time Stop Time Status Last Admin (NS Flush) 2 ml UNSCH PRN IVF 07/05/17 21:30 (NS Flush) 2 ml UNSCH PRN IV FLUSH 07/05/17 23:15 (Catapres) 0.1 mg Q4H PRN PO 07/06/17 07:45 07/08/17 08:26 (Synthroid) 50 mcg DAILY@0600 PO 07/06/17 08:21 07/10/17 05:48 (Cozaar) 50 mg BID PO 07/06/17 09:00 07/09/17 21:21 (Pravachol) 40 mg DAILY PO 07/06/17 09:00 07/09/17 09:48 (Razadyne) 4 mg BID PO 07/06/17 09:00 07/09/17 21:21 (Pill Splitter) 1 ea UNSCH PRN OTHER 07/06/17 14:30 (Lopressor) 12.5 mg BID PO 07/06/17 21:00 07/09/17 21:21 (Colace) 100 mg BID PO 07/07/17 21:00 07/09/17 21:21 (Milk Of Magnesia Liq) 30 ml DAILY PRN PO 07/07/17 17:45 07/08/17 15:19 (Tylenol) 500 mg Q6H PRN PO 07/08/17 18:30 07/09/17 22:09 (Plavix) 75 mg DAILY PO 07/10/17 09:00 (Ativan Inj) 0.5 mg UNSCH PRN IV PUSH 07/09/17 16:45 07/10/17 16:44 07/09/17 22:10 (Atropine Inj) 0.5 mg UNSCH PRN IV PUSH 07/09/17 16:45 Sodium Chloride 250 ml @ 500 mls/hr ONCE PRN IV 07/09/17 16:45 07/10/17 16:44 (Reglan Inj) 10 mg Q4H PRN IV PUSH 07/09/17 16:45 (Zofran Inj) 4 mg Q4H PRN IV PUSH 07/09/17 16:45 07/09/17 22:45 (Xylocaine 1% Inj (50 ml)) 10 ml UNSCH PRN INFIL 07/09/17 16:45 07/10/17 16:44 (Ecotrin Ec) 81 mg DAILY PO 07/10/17 09:00 Vital Signs / I&O Vital Signs Date Time Temp Pulse Resp B/P (MAP) Pulse Ox O2 Delivery O2 Flow Rate FiO2 07/10/17 08:45 82 16 126/78 (94) 97 07/10/17 07:14 56 07/10/17 06:03 56 07/10/17 05:24 60 07/10/17 04:06 59 07/10/17 03:43 97.5 59 150/73 (98) 99 07/10/17 03:00 56 07/10/17 02:00 66 07/10/17 01:00 60 07/10/17 00:00 60 07/09/17 23:00 57 07/09/17 23:00 97.5 59 153/83 (106) 100 07/09/17 22:40 96 Nasal Cannula 3.00 07/09/17 22:00 68 07/09/17 21:00 64 07/09/17 20:00 62 07/09/17 20:00 97.5 63 132/73 (92) 99 07/09/17 19:00 61 07/09/17 18:15 52 07/09/17 17:31 98.0 52 14 143/58 (86) 97 07/09/17 17:00 48 07/09/17 14:00 64 07/09/17 13:00 56 07/09/17 12:00 56 07/09/17 11:18 97.9 54 16 149/78 (101) 98 07/09/17 11:00 55 07/09/17 10:00 54 I/O 07/09/17 07/09/17 07/09/17 07/10/17 07/10/17 07/10/17 07:00 15:00 23:00 07:00 15:00 23:00 Intake Total 240 ml 100 ml 240 ml Output Total 300 ml 700 ml 800 ml Balance -60 ml -600 ml -560 ml Intake Oral 240 ml 0 ml 240 ml IV Total 100 ml Output Urine Total 300 ml 700 ml 800 ml # Bowel Movements 1 Physical Exam GENERAL: Well-developed well-nourished. In no acute distress. NECK: No carotid bruits. No JVD. CARDIOVASCULAR: Regular rate and rhythm. No murmur appreciated. RESPIRATORY: No accessory muscle use. Clear to auscultation. Breath sounds equal bilaterally. MUSCULOSKELETAL: No clubbing or cyanosis. No edema. NEUROLOGICAL: Awake and alert. Normal speech. SKIN: Right groin access site with some ecchymosis and tenderness. Laboratory Laboratory Tests Test 07/09/17 22:33 07/10/17 04:54 07/10/17 05:45 Hemoglobin 11.7 GM/DL 11.7 GM/DL Hematocrit 34.2 % 33.8 % Blood Urea Nitrogen 15 MG/DL Creatinine 0.83 MG/DL Random Glucose 92 MG/DL Calcium Level 8.4 MG/DL Sodium Level 131 MEQ/L Potassium Level 3.4 MEQ/L Chloride Level 98 MEQ/L Carbon Dioxide Level 23.1 MEQ/L Anion Gap 10 MEQ/L Estimat Glomerular Filtration Rate 66 ML/MIN Total Creatine Kinase 137 U/L Triglycerides Level 59 MG/DL Cholesterol Level 135 MG/DL LDL Cholesterol 73 MG/DL HDL Cholesterol 50.5 MG/DL Cholesterol/HDL Ratio 2.67 RATIO White Blood Count 6.8 TH/MM3 Red Blood Count 3.49 MIL/MM3 Mean Corpuscular Volume 96.8 FL Mean Corpuscular Hemoglobin 33.5 PG Mean Corpuscular Hemoglobin Concent 34.6 % Red Cell Distribution Width 13.4 % Platelet Count 155 TH/MM3 Mean Platelet Volume 7.9 FL Neutrophils (%) (Auto) 66.8 % Lymphocytes (%) (Auto) 19.0 % Monocytes (%) (Auto) 11.1 % Eosinophils (%) (Auto) 2.7 % Basophils (%) (Auto) 0.4 % Neutrophils # (Auto) 4.5 TH/MM3 Lymphocytes # (Auto) 1.3 TH/MM3 Monocytes # (Auto) 0.8 TH/MM3 Eosinophils # (Auto) 0.2 TH/MM3 Basophils # (Auto) 0.0 TH/MM3 CBC Comment DIFF FINAL Differential Comment Imaging Last Impressions Abdomen/Pelvis CT 07/09/17 0000 Signed Impressions: Service Date/Time: June 22:56 - CONCLUSION: Right rectus sheath hematoma that appears acute but I don't convincingly see any active bleeding. 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 There is some induration of the soft tissues in the right groin but I don't convincingly see a right inguinal hematoma. No acute intraperitoneal or retroperitoneal abnormality demonstrated. Abner Beckett MD Myocardial Perfusion Scan Nuc Med 07/06/17 0000 Signed Impressions: Service Date/Time: Thursday, July 06, 2017 09:15 - CONCLUSION: 1. Moderate-sized stress-induced perfusion abnormality in the anterolateral wall. 2. Well-preserved ventricular wall motion and ejection fraction. RISK CATEGORY : Intermediate (1-3%% Annual Mortality Rate) Alejandro Goff MD Chest X-Ray 07/05/172115 Signed Impressions: Service Date/Time: Wednesday, July 05, 2017 21:33 - CONCLUSION: No acute disease. Jayant Luis MD FACR (Sen Rivas) Assessment and Plan Problem List: (1) Atrial fibrillation ICD Codes: I48.91 - Atrial fibrillation Status: Chronic (2) Chest pain ICD Codes: R07.9 - Chest pain, unspecified Status: Acute Assessment and Plan 81-year-old female with a past medical history of HTN, HLD, hypothyroidism who presented with chest pain. Patient was admitted to the chest pain center and underwent Lexiscan stress test which showed moderate reversible defect. CAD: Cardiac catheterization 07/07 showed severe 2 vessel lovelock CAD. We will need to discuss with patient and family regarding medical therapy vs higher risk PCI vs CABG. patient and family elected for PCI, performed 07/09 with BMSs to LAD and RCA. Continue aspirin, Plavix (for 4-8 weeks), metoprolol, pravastatin. Paroxysmal atrial fibrillation: Resume Eliquis. Continue metoprolol for rate control. Rectus sheath hematoma: Improving overnight. (Sen Rivas) Assessment and Plan ok for DC. small resolving hematoma. ambulate asa 81 plavix 75 x 4-6 weeks, then can DC (bare metal stent) eliquis 5 BID FU in 2 weeks (Thaddeus Carver MD) Problem Qualifiers (1) Atrial fibrillation: Qualified Codes: I48.0 - Paroxysmal atrial fibrillation Sen Rivas Jul 10, 2017 09:15 Thaddeus Carver MD Jul 10, 2017 09:49
[2017-07-10] MEDS ORDERED: METO25TA3 PO (09:26)
[2017-07-10] MEDS ORDERED: ECASA81 PO (09:26)
[2017-07-10] MEDS ORDERED: PLAV75TA29 PO (09:26)
--- NOTE | 2017-07-10 09:34 | HHI.PR ---
Subjective Remarks Patient s/p PCI with BMSs to LAD and RCA on 06/29. Patient did have vaso vagal response as pressure was being applied to right groin site, which resolved spontaneously. Patient appears to be in no distress at this time, reports feeling well at this time and ready to go home Objective Vitals Vital Signs Date Time Temp Pulse Resp B/P (MAP) Pulse Ox O2 Delivery O2 Flow Rate FiO2 07/10/17 08:45 82 16 126/78 (94) 97 07/10/17 07:14 56 07/10/17 06:03 56 07/10/17 05:24 60 07/10/17 04:06 59 07/10/17 03:43 97.5 59 150/73 (98) 99 07/10/17 03:00 56 07/10/17 02:00 66 07/10/17 01:00 60 07/10/17 00:00 60 07/09/17 23:00 57 07/09/17 23:00 97.5 59 153/83 (106) 100 07/09/17 22:40 96 Nasal Cannula 3.00 07/09/17 22:00 68 07/09/17 21:00 64 07/09/17 20:00 62 07/09/17 20:00 97.5 63 132/73 (92) 99 07/09/17 19:00 61 07/09/17 18:15 52 07/09/17 17:31 98.0 52 14 143/58 (86) 97 07/09/17 17:00 48 07/09/17 14:00 64 07/09/17 13:00 56 07/09/17 12:00 56 07/09/17 11:18 97.9 54 16 149/78 (101) 98 07/09/17 11:00 55 07/09/17 10:00 54 Result Diagram: 07/10/17 0545 07/10/17 0454 Other Results Laboratory Tests Test 07/07/17 18:04 07/08/17 00:18 07/08/17 06:28 07/08/17 12:20 White Blood Count 5.8 TH/MM3 6.3 TH/MM3 Red Blood Count 3.80 MIL/MM3 3.60 MIL/MM3 Hemoglobin 12.4 GM/DL 11.9 GM/DL Hematocrit 36.7 % 34.7 % Mean Corpuscular Volume 96.6 FL 96.3 FL Mean Corpuscular Hemoglobin 32.7 PG 33.0 PG Mean Corpuscular Hemoglobin Concent 33.8 % 34.3 % Red Cell Distribution Width 13.7 % 13.7 % Platelet Count 186 TH/MM3 166 TH/MM3 Mean Platelet Volume 7.8 FL 7.8 FL Prothrombin Time 10.8 SEC Prothromb Time International Ratio 1.1 RATIO Activated Partial Thromboplast Time 26.4 SEC 55.4 SEC 91.0 SEC 54.3 SEC Neutrophils (%) (Auto) 52.1 % Lymphocytes (%) (Auto) 33.4 % Monocytes (%) (Auto) 8.2 % Eosinophils (%) (Auto) 6.0 % Basophils (%) (Auto) 0.3 % Neutrophils # (Auto) 3.3 TH/MM3 Lymphocytes # (Auto) 2.1 TH/MM3 Monocytes # (Auto) 0.5 TH/MM3 Eosinophils # (Auto) 0.4 TH/MM3 Basophils # (Auto) 0.0 TH/MM3 CBC Comment DIFF FINAL Differential Comment Blood Urea Nitrogen 15 MG/DL Creatinine 0.84 MG/DL Random Glucose 92 MG/DL Calcium Level 8.8 MG/DL Sodium Level 136 MEQ/L Potassium Level 3.6 MEQ/L Chloride Level 102 MEQ/L Carbon Dioxide Level 26.4 MEQ/L Anion Gap 8 MEQ/L Estimat Glomerular Filtration Rate 65 ML/MIN Test 07/09/17 00:30 07/09/17 22:33 07/10/17 04:54 07/10/17 05:45 Activated Partial Thromboplast Time 54.6 SEC Hemoglobin 11.7 GM/DL 11.7 GM/DL Hematocrit 34.2 % 33.8 % Blood Urea Nitrogen 15 MG/DL Creatinine 0.83 MG/DL Random Glucose 92 MG/DL Calcium Level 8.4 MG/DL Sodium Level 131 MEQ/L Potassium Level 3.4 MEQ/L Chloride Level 98 MEQ/L Carbon Dioxide Level 23.1 MEQ/L Anion Gap 10 MEQ/L Estimat Glomerular Filtration Rate 66 ML/MIN Total Creatine Kinase 137 U/L Triglycerides Level 59 MG/DL Cholesterol Level 135 MG/DL LDL Cholesterol 73 MG/DL HDL Cholesterol 50.5 MG/DL Cholesterol/HDL Ratio 2.67 RATIO White Blood Count 6.8 TH/MM3 Red Blood Count 3.49 MIL/MM3 Mean Corpuscular Volume 96.8 FL Mean Corpuscular Hemoglobin 33.5 PG Mean Corpuscular Hemoglobin Concent 34.6 % Red Cell Distribution Width 13.4 % Platelet Count 155 TH/MM3 Mean Platelet Volume 7.9 FL Neutrophils (%) (Auto) 66.8 % Lymphocytes (%) (Auto) 19.0 % Monocytes (%) (Auto) 11.1 % Eosinophils (%) (Auto) 2.7 % Basophils (%) (Auto) 0.4 % Neutrophils # (Auto) 4.5 TH/MM3 Lymphocytes # (Auto) 1.3 TH/MM3 Monocytes # (Auto) 0.8 TH/MM3 Eosinophils # (Auto) 0.2 TH/MM3 Basophils # (Auto) 0.0 TH/MM3 CBC Comment DIFF FINAL Differential Comment Imaging Last Impressions Myocardial Perfusion Scan Nuc Med 07/06/17 0000 Signed Impressions: Service Date/Time: Thursday, July 06, 2017 09:15 - CONCLUSION: 1. Moderate-sized stress-induced perfusion abnormality in the anterolateral wall. 2. Well-preserved ventricular wall motion and ejection fraction. RISK CATEGORY : Intermediate (1-3%% Annual Mortality Rate) Alejandro Goff MD Chest X-Ray 07/05/172115 Signed Impressions: Service Date/Time: Wednesday, July 05, 2017 21:33 - CONCLUSION: No acute disease. Jayant Luis MD FACR Objective Remarks General: NAD, Awake and alert Chest: CTA Cardiac: Regular, louis Abd: +BS, soft ND/NT Ext: No edema Procedures 07/09 with BMSs to LAD and RCA. Continue aspirin, Plavix, metoprolol, pravastatin. A/P Problem List: (1) Chest pain ICD Codes: R07.9 - Chest pain, unspecified Status: Acute Plan: - Pt is an 81 y/o female with HTN, HLD, hypothyroidism who presented to the ED with complaints of chest pain. - Patient was admitted to the chest pain center and CE were negative x 3. - Pt underwent Lexiscan stress test which showed moderate reversible defect. - She was transferred to [facility] Hospitalist service with Cardiology consulting. - Pt underwent C with Dr. Carver (07/08) --> severe 2V CAD - Pt's son declines surgical repair - 07/09 with BMSs to LAD and RCA. - patient cleared for DC per cardiology, continue aspirin, Plavix, metoprolol, pravastatin. - supportive care (2) Uncontrolled hypertension ICD Codes: I10 - Uncontrolled hypertension Status: Acute Plan: - Pt is on Cozaar 50mg po BID, and Metoprolol 50mg BID at home. - The metoprolol has been decreased due to bradycardia - HCTZ 25mg po daily was added on 07/07 - Monitor - Clonidine PRN (3) Atrial fibrillation ICD Codes: I48.91 - Atrial fibrillation Status: Chronic Plan: - Eliquis on hold for [facility]. - Metoprolol decreased to 12.5mg po BID due to bradycardia - Cont. Telemetry monitoring. (4) Hypothyroidism ICD Codes: E03.9 - Hypothyroidism Status: Chronic Plan: - Home med continued Assessment and Plan Problem Qualifiers (1) Atrial fibrillation: Qualified Codes: I48.0 - Paroxysmal atrial fibrillation Taylor Allen Jul 10, 2017 09:34
--- NOTE | 2017-07-10 09:35 | HHI.DCPOC ---
Discharge Care Plan Diagnosis: (1) Chest pain (2) CAD (coronary artery disease) Goals to Promote Your Health * To prevent worsening of your condition and complications * To maintain your health at the optimal level Directions to Meet Your Goals Take your medications as prescribed Follow your dietary instruction Follow activity as directed Keep your appointments as scheduled Take your immunizations and boosters as scheduled If your symptoms worsen call your PCP, if no PCP go to Urgent Care Center or Emergency Room Smoking is Dangerous to Your Health. Avoid second hand smoke Call the 24-hour hour crisis hotline for domestic abuse at Taylor Allen Jul 10, 2017 09:35
--- NOTE | 2017-07-10 09:39 | HHI.DS ---
Discharge Summary Admission Date Jul 07, 2017 at 09:53 Discharge Date: Jul 10, 2017 Admitting Diagnosis chest pain, hx of cva (1) Chest pain ICD Codes: R07.9 - Chest pain, unspecified Status: Acute (2) Uncontrolled hypertension ICD Codes: I10 - Uncontrolled hypertension Status: Acute (3) Atrial fibrillation ICD Codes: I48.91 - Atrial fibrillation Status: Chronic (4) Hypothyroidism ICD Codes: E03.9 - Hypothyroidism Status: Chronic Consultants Dr. Carver, Cardiology Procedures 07/09 with BMSs to LAD and RCA. Continue aspirin, Plavix, metoprolol, pravastatin. CBC/BMP: 07/10/17 0545 07/10/17 0454 Significant Findings Laboratory Tests Test 07/07/17 18:04 07/08/17 00:18 07/08/17 06:28 07/08/17 12:20 Red Blood Count 3.80 MIL/MM3 (4.00-5.30) 3.60 MIL/MM3 (4.00-5.30) Activated Partial Thromboplast Time 55.4 SEC (24.3-30.1) 91.0 SEC (24.3-30.1) 54.3 SEC (24.3-30.1) Hematocrit 34.7 % (35.0-46.0) Monocytes (%) (Auto) 8.2 % (0.0-8.0) Eosinophils (%) (Auto) 6.0 % (0.0-4.0) Estimat Glomerular Filtration Rate 65 ML/MIN (>89) Test 07/09/17 00:30 07/09/17 22:33 07/10/17 04:54 07/10/17 05:45 Activated Partial Thromboplast Time 54.6 SEC (24.3-30.1) Hematocrit 34.2 % (35.0-46.0) 33.8 % (35.0-46.0) Calcium Level 8.4 MG/DL (8.5-10.1) Sodium Level 131 MEQ/L (136-145) Potassium Level 3.4 MEQ/L (3.5-5.1) Estimat Glomerular Filtration Rate 66 ML/MIN (>89) Red Blood Count 3.49 MIL/MM3 (4.00-5.30) Monocytes (%) (Auto) 11.1 % (0.0-8.0) Imaging Last Impressions Abdomen/Pelvis CT 07/09/17 0000 Signed Impressions: Service Date/Time: June 22:56 - CONCLUSION: Right rectus sheath hematoma that appears acute but I don't convincingly see any active bleeding. 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 There is some induration of the soft tissues in the right groin but I don't convincingly see a right inguinal hematoma. No acute intraperitoneal or retroperitoneal abnormality demonstrated. Abner Beckett MD Myocardial Perfusion Scan Nuc Med 07/06/17 0000 Signed Impressions: Service Date/Time: Thursday, July 06, 2017 09:15 - CONCLUSION: 1. Moderate-sized stress-induced perfusion abnormality in the anterolateral wall. 2. Well-preserved ventricular wall motion and ejection fraction. RISK CATEGORY : Intermediate (1-3%% Annual Mortality Rate) Alejandro Goff MD Chest X-Ray 07/05/[id number] Signed Impressions: Service Date/Time: Wednesday, July 05, 2017 21:33 - CONCLUSION: No acute disease. Jayant Luis MD FACR PE at Discharge General: NAD, Awake and alert Chest: CTA Cardiac: Regular, louis Abd: +BS, soft ND/NT Ext: No edema Hospital Course Chest pain - Pt is an 81 y/o female with HTN, HLD, hypothyroidism who presented to the ED with complaints of chest pain. - Patient was admitted to the chest pain center and CE were negative x 3. - Pt underwent Lexiscan stress test which showed moderate reversible defect. - She was transferred to [facility] Hospitalist service with Cardiology consulting. - Pt underwent C with Dr. Carver (07/08) --> severe 2V CAD - Pt's son declines surgical repair - 07/09 with BMSs to LAD and RCA. - 07/09 CT abdomen and pelvis revealed right rectus sheath hematoma that appears acute with no convincing evidence of active bleeding. 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 There is some induration of soft tissues in the right groin adjunct extensively CVA rate inguinal hematoma. No acute intraperitoneal or retroperitoneal abnormalities demonstrated - patient cleared for DC per cardiology, continue aspirin, Plavix, metoprolol, pravastatin. - supportive care Uncontrolled hypertension - Pt is on Cozaar 50mg po BID, and Metoprolol 50mg BID at home. - The metoprolol has been decreased due to bradycardia - HCTZ 25mg po daily was added on 07/07 - Monitor - Clonidine PRN Atrial fibrillation - Eliquis on hold for LHC., 07/10 Eliquis resumed - Metoprolol decreased to 12.5mg po BID due to bradycardia - Cont. Telemetry monitoring. Hypothyroidism - Home med continued Pt Condition on Discharge: Stable Discharge Disposition: Discharge Home Discharge Instructions DIET: Follow Instructions for: Heart Healthy Diet Activities you can perform: See Additionl Instruction Activities to Avoid: Lifting/Bending, Strenuous Activity Other Activity Instructions: activity per cardiology Follow up Referrals: Cardiology - [address] Carver PCP Follow-up - 1 Week New Medications: Aspirin DR (Aspirin DR) 81 Mg Tabdr 81 MG PO DAILY for Blood Clot Prevention, #30 TAB 0 Refills Clopidogrel (Plavix) 75 Mg Tab 75 MG PO DAILY for Blood Clot Prevention, #30 TAB 0 Refills Metoprolol Tartrate (Metoprolol Tartrate) 25 Mg Tab 12.5 MG PO BID for blood pressure/ heart , #60 TAB 0 Refills Continued Medications: Apixaban (Eliquis) 5 Mg Tab 5 MG PO BID for Blood Clot Prevention, #60 TAB 0 Refills Clonidine (Catapres) 0.1 Mg Tab 0.1 MG PO Q4H PRN for sbp > 170, #20 TAB Galantamine ER (Galantamine ER) 8 Mg Caper 8 MG PO DAILY for Alzheimer's Dementia, #30 CAP 0 Refills Levothyroxine (Levothyroxine) 50 Mcg Tab 50 MCG PO DAILY for Thyroid, #30 TAB 0 Refills Losartan (Losartan) 50 Mg Tab 50 MG PO BID for Blood Pressure Management, #60 TAB 0 Refills Multiple Vitamin (Multi Vitamin Daily) 1 Tab Tab Pravastatin (Pravastatin) 40 Mg Tab 40 MG PO DAILY for Cholesterol Management, #30 TAB 0 Refills Discontinued Medications: Metoprolol Tartrate (Metoprolol Tartrate) 50 Mg Tab 50 MG PO BID, #60 TAB 0 Refills Taylor Allen Jul 10, 2017 09:39
[2017-07-10] MEDS: DOCUSATE SODIUM 100 MG CAP PO SCH (09:49)
[2017-07-10] MEDS: METOPROLOL TARTRATE 25 MG TAB PO SCH (09:50)
[2017-07-10] MEDS: GALANTAMINE HYDROBROMIDE 4 MG TAB PO SCH (09:50)
[2017-07-10] MEDS: LOSARTAN 50 MG TAB PO SCH (09:50)
[2017-07-10] MEDS: PRAVASTATIN SOD 40 MG TAB PO SCH (09:51)
[2017-07-10] MEDS ORDERED: APIXABAN 5 MG TABLET PO ONE (10:00)
[2017-07-10] MEDS ORDERED: POTASSIUM CHLORIDE 20 MEQ CONTROLLED RELEASE TAB PO ONE (10:30)
--- NOTE | 2017-07-10 11:33 | EKG ---
Date Performed: 07/10/2017 Time Performed: 05:22:52 PTAGE: 81 years EKG: Sinus bradycardia Normal ECG except for rate PREVIOUS TRACING : 07/09/2017 20.32 Since the previous tracing, no significant change not ed DOCTOR: Benji Crain Interpretating Date/Time 07/10/2017 11:28:27
--- NOTE | 2017-07-10 11:33 | EKG ---
Date Performed: 07/09/2017 Time Performed: 20:32:38 PTAGE: 81 years EKG: Sinus rhythm with PAC(s) Borderline ECG PREVIOUS TRACING : 07/06/2017 03.11 Since the previous tracing, no significant change noted DOCTOR: Benji Crain Interpretating Date/Time 07/10/2017 11:28:16
[2017-07-10] MEDS ORDERED: IOHEXOL 350 MG/ML 100 ML BTL (for Cath Lab) OTHER ONE (11:41)
== END 2017-07-10 11:42 | disposition home or self-care (01) | DRG 249 ==
LOC: NEPE 20:44 → NEDA 23:12 → NEPGCP 07-06 → HCIS 07-07 09:38 → OBSVTOIN 07-07 09:53 → HCIS 07-07 15:58
PROVIDERS: ADMIT Hospitalist; ATTEND Hospitalist
PROC: 4A023N7 Measurement of Cardiac Sampling and Pressure, Left Heart, Percutaneous Approach (ICD-10-PCS; 2017-07-07)
PROC: B2111ZZ Fluoroscopy of Multiple Coronary Arteries using Low Osmolar Contrast (ICD-10-PCS; 2017-07-07)
PROC: B2151ZZ Fluoroscopy of Left Heart using Low Osmolar Contrast (ICD-10-PCS; 2017-07-07)
PROC: B2111ZZ Fluoroscopy of Multiple Coronary Arteries using Low Osmolar Contrast (ICD-10-PCS; 2017-07-09)
PROC: 02713EZ Dilation of Coronary Artery, Two Arteries with Two Intraluminal Devices, Percutaneous Approach (ICD-10-PCS; principal; 2017-07-09 10:00)
DX: I25.110 Atherosclerotic heart disease of native coronary artery with unstable angina pectoris (principal); F03.90 Unspecified dementia, unspecified severity, without behavioral disturbance, psychotic disturbance, mood disturbance, and anxiety; R00.1 Bradycardia, unspecified; I97.630 Postprocedural hematoma of a circulatory system organ or structure following a cardiac catheterization; I48.0 Paroxysmal atrial fibrillation; I10 Essential (primary) hypertension; E78.5 Hyperlipidemia, unspecified; E03.9 Hypothyroidism, unspecified; Y84.0 Cardiac catheterization as the cause of abnormal reaction of the patient, or of later complication, without mention of misadventure at the time of the procedure; Z88.8 Allergy status to other drugs, medicaments and biological substances
CPT/HCPCS: 71045; 74176; 78452; 80048; 80053; 80061; 82550; 82552; 84484; 85002; 85014; 85018; 85025; 85027; 85610; 85730; 92928; 92929; 93005; 93017; 93454; 93458; 99152; 99153; A9502; C1725; C1760; C1769; C1876; C1887; C1893; G0269; G0378; J0461; J1644; J2060; J2250; J2405; J2785; J7030; Q9967